=== PATIENT | female | born 1940 | race Caucasian/White ===

== ENCOUNTER 2017-05-05 11:34 | Inpatient (IN) | payer MEDICARE ==
[~2017-05-05] VITALS: Ht 144.8 cm; Wt 42.4 kg
[2017-05-05] VITALS (9 sets, daily range): BP systolic 101–124; BP diastolic 63–82; PULSE 74–90; RESP 16–20; TEMP 96.5–98.5; O2SAT 95–99
[~2017-05-05 11:34] MED LIST: ASPI81TA82 PO; CALC-137 PO; CLIN1CAP5 PO; DOCU50SY2 PO; DORZ2SOL3 EACH EYE; FISH1000 PO; LATA0.00 EACH EYE; LEVO88TA2 PO; SIMV80TA PO; [UNRECOGNIZED DRUG - OTHER] PO
[2017-05-05] MEDS ORDERED: LATA0.002 LEFT EYE (12:44)
[2017-05-05] MEDS ORDERED: DORZ2SOL15 LEFT EYE (12:44)
[2017-05-05] MEDS ORDERED: LEVO88TA2 PO (12:44)
[2017-05-05] MEDS ORDERED: REST0.05 LEFT EYE (12:44)
[2017-05-05] MEDS ORDERED: PLAV75TA29 PO (12:44)
[2017-05-05] MEDS ORDERED: PLAQ200T PO (12:44)
[2017-05-05] MEDS ORDERED: SIMV80TA PO (12:44)
[2017-05-05] MEDS ORDERED: K-TA10TA PO (12:45)
[2017-05-05] MEDS ORDERED: CIPR0.3S2 RIGHT EYE (12:45)
[2017-05-05] MEDS ORDERED: VALT500T PO (12:45)
[2017-05-05] MEDS ORDERED: DOXY1CAP74 PO (12:45)
--- NOTE | 2017-05-05 12:56 | PD ---
HPI Chief Complaint: Fall Time Seen by Provider: 12:20 Travel History International Travel<30 days: No Contact w/Intl Traveler<30days: No Traveled to known affect area: No History of Present Illness HPI This is a 76-year-old female who presents to the emergency department having had a mechanical fall yesterday, landing on her left hip and hitting her head. Her grandson helped her get up. She says she didn't lose consciousness and hasn 't vomited. She reports severe pain in her lower back and coccyx, constant, with no associated numbness or weakness. She is on Plavix and aspirin. PFSH Past Medical History Hx Anticoagulant Therapy: Yes (PLAVIX AND ASA) Arthritis: Yes (HX R/A) Cancer: No Cardiovascular Problems: No High Cholesterol: Yes Cerebrovascular Accident: Yes (TIA X1) Coronary Artery Disease: Yes Diabetes: No Diminished Hearing: No Endocrine: Yes Glaucoma: Yes Genitourinary: No Hepatitis: No Hiatal Hernia: No Hypertension: No Immune Disorder: No Kidney Stones: No Medical other: Yes (hx of PVD) Musculoskeletal: Yes Neurologic: No Psychiatric: No Reproductive: No Respiratory: No Renal Failure: No Thyroid Disease: Yes Tetanus Vaccination: Unknown Influenza Vaccination: No Menopausal: Yes Past Surgical History Abdominal Surgery: No Cardiac Surgery: No Ear Surgery: No Endocrine Surgery: Yes (THYROIDECTOMY 48 YEARS AGO) Eye Surgery: Yes (bilat eyes- cataracts ) Genitourinary Surgery: No Gynecologic Surgery: No Oral Surgery: Yes Pacemaker: No Thoracic Surgery: No Tonsillectomy: Yes Other Surgery: Yes Social History Alcohol Use: No Tobacco Use: No (QUIT 20 YRS AGO SMOKED FOR 35 YRS 1 08/03 PPD) Substance Use: No Allergies-Medications (Allergen,Severity, Reaction): Coded Allergies: Sulfa (Sulfonamide Antibiotics) (Unverified Allergy, Severe, hives, ) atorvastatin (Unverified Allergy, Severe, RASH, 05/05/17) levofloxacin (Unverified Allergy, Severe, NAUSEA, AND BLOOD PRESSURE DROPS , 05/05/17) penicillin G (Unverified Allergy, Severe, hives, 05/05/17) *MDRO Multi-Drug Resistant Organism (Verified Allergy, Unknown, 05/05/17) MRSA positive culture performed at 's office per patient's daughter Reported Meds & Prescriptions Reported Meds & Active Scripts Active Reported Ciprofloxacin Opth Drops (Ciprofloxacin HCl) 0.3% Soln 1 Drop RIGHT EYE TID while awake x 5 days. Valtrex (Valacyclovir HCl) Unknown Strength Tab Unknown Dose PO DAILY Doxycycline 40 Mg Cap 50 Mg PO BID K-Tab (Potassium Chloride) 10 Meq Tab 10 Meq PO DAILY Plavix (Clopidogrel Bisulfate) 75 Mg Tab 75 Mg PO DAILY Levothyroxine (Levothyroxine Sodium) 88 Mcg Tab 88 Mcg PO DAILY Simvastatin 80 Mg Tab 80 Mg PO DAILY Plaquenil (Hydroxychloroquine Sulfate) 200 Mg Tab 200 Mg PO BID Take with food Restasis Opth 0.05% (Cyclosporine Opth 0.05%) 0.05% Emul 1 Drop LEFT EYE BID Latanoprost Opth Drops (Latanoprost) 0.005% Drops 1 Drop LEFT EYE HS Refrigerate until opened. Dorzolamide-Timolol Opth Drops 22.3-6.8 Mg/Ml Soln 1 Drop LEFT EYE BID Review of Systems Except as stated in HPI: all other systems reviewed are Neg Physical Exam Narrative GENERAL:Well appearing, no acute distress SKIN: Ecchymoses in the left lateral thigh HEAD: Atraumatic. Normocephalic. EYES: Pupils equal and round. No injection or drainage. ENT: Moist mucous membranes NECK: Trachea midline. CARDIOVASCULAR: Regular rate and rhythm. No murmur appreciated. RESPIRATORY: Clear to auscultation. Breath sounds equal bilaterally. GASTROINTESTINAL: Abdomen soft, non-tender, nondistended. MUSCULOSKELETAL: Tender to palpation in the lower lumbar spine through the tailbone NEUROLOGICAL: Awake and alert. No obvious cranial nerve deficits. Moving all extremities. PSYCHIATRIC: Appropriate mood and affect; insight and judgment normal. Data Data Last Documented VS Vital Signs Date Time Temp Pulse Resp B/P (MAP) Pulse Ox O2 Delivery O2 Flow Rate FiO2 05/05/17 12:24 88 16 99 Room Air 05/05/17 11:50 98.5 109/67 (81) Orders Orders Ct Brain W/O Iv Contrast(Rout) (05/05/17 ) Ct Lumb Spine W/O Contrast (05/05/17 ) Hip, Uni(Ap&Lat) W Ap Pelvis (05/05/17 ) Complete Blood Count With Diff (05/05/17 14:07) Basic Metabolic Panel (Bmp) (05/05/17 14:07) Ct Abd/Pel W Iv Contrast(Rout) (05/05/17 ) Acetaminophen (Tylenol) (05/05/17 14:45) Ct Cerv Spine W/O Contrast (05/05/17 ) Chest, Single Ap (05/05/17 ) Consult Neurosurgery (05/05/17 ) Mri T Spine W/O Contrast (05/05/17 ) Admit Order (Ed Use Only) (05/05/17 15:27) Labs Laboratory Tests Test 05/05/17 14:30 White Blood Count 8.0 TH/MM3 Red Blood Count 3.49 MIL/MM3 Hemoglobin 11.1 GM/DL Hematocrit 33.2 % Mean Corpuscular Volume 95.1 FL Mean Corpuscular Hemoglobin 31.7 PG Mean Corpuscular Hemoglobin Concent 33.3 % Red Cell Distribution Width 16.2 % Platelet Count 177 TH/MM3 Mean Platelet Volume 7.4 FL Neutrophils (%) (Auto) 79.1 % Lymphocytes (%) (Auto) 8.3 % Monocytes (%) (Auto) 11.9 % Eosinophils (%) (Auto) 0.4 % Basophils (%) (Auto) 0.3 % Neutrophils # (Auto) 6.3 TH/MM3 Lymphocytes # (Auto) 0.7 TH/MM3 Monocytes # (Auto) 1.0 TH/MM3 Eosinophils # (Auto) 0.0 TH/MM3 Basophils # (Auto) 0.0 TH/MM3 CBC Comment DIFF FINAL Differential Comment Blood Urea Nitrogen 9 MG/DL Creatinine 0.58 MG/DL Random Glucose 84 MG/DL Calcium Level 8.5 MG/DL Sodium Level 129 MEQ/L Potassium Level 3.8 MEQ/L Chloride Level 95 MEQ/L Carbon Dioxide Level 24.8 MEQ/L Anion Gap 9 MEQ/L Estimat Glomerular Filtration Rate 101 ML/MIN [facility] Medical Decision Making Medical Screen Exam Complete: Yes Emergency Medical Condition: Yes Interpretation(s) Afebrile, no tachycardia, normotensive Mild anemia Mild hyponatremia Multiple superior and inferior pubic ramus fractures on the left on x-ray Lumbar spine CT demonstrates a severe compression fracture at T12 with retropulsion of bony fragments and narrowing of the canal to 7-8 mm Differential Diagnosis Intracranial hemorrhage, lumbar compression fracture, coccygeal fracture, pubic ramus fracture, proximal femur fracture Narrative Course This is a 76-year-old female who presents to the emergency department having had a mechanical fall from standing last evening. Patient is reporting severe low back pain and left hip pain. She is placed in a monitor and an IV was established. Labs are obtained which were reassuring. CT of the head is unremarkable. CT of the lumbar spine demonstrates severe compression fracture of T12 with retropulsion of bony fragments and some narrowing of the canal. She has 5 out of 5 strength in both legs and denies any loss of sensation. X- ray of the pelvis demonstrates multiple pubic ramus fractures on the left. I discussed the patient with Dr. Palm who is on-call for neurosurgery. He requested the patient be transferred to the main hospital as she may require surgical intervention. I discussed the case with Dr. Hutchinson was on-call for trauma surgery who agreed to admit the patient given her multiple injuries. Physician Communication Physician Communication Discussed with Dr. Palm and Dr. Hutchinson Diagnosis Primary Impression: Compression fracture of T12 vertebra Additional Impression: Pubic ramus fracture Qualified Codes: S32.592A - Other specified fracture of left pubis, initial encounter for closed fracture Admitting Information Admitting Physician Requests: Admit Christi Rogers MD May 05, 2017 12:56
--- NOTE | 2017-05-05 13:31 | RADRPT ---
EXAM DATE/TIME: 05/05/2017 13:00 [facility] COMPARISON: No previous studies available for comparison. INDICATIONS : Left hip pain post fall MEDICAL HISTORY : Stroke. Rheumatoid arthritis. SURGICAL HISTORY : Right hip replacement ENCOUNTER: Initial ACUITY: 2 days PAIN SCORE: 5/10 LOCATION: Left posterior hip FINDINGS: Number fractures of the left superior-inferior pubic ramus, moderately displaced involving the medial superior pubic ramus and slightly displaced involving the inferior pubic ramus. The symphysis is int act. The left hip itself is intact with mild degenerative arthritic change. There has been previous p inning of the right hip. There are prominent vascular calcifications and popcorn calcifications in th e right pelvis likely within uterine fibroid. CONCLUSION: Left pubic rami fractures Duran Araya MD on May 05, 2017 at 13:25 Board Certified Radiologist. This report was verified electronically.
--- NOTE | 2017-05-05 13:39 | RADRPT ---
EXAM DATE/TIME: 05/05/2017 13:23 [facility] COMPARISON: CT BRAIN W/O CONTRAST, December 03, 2010, 17:34. INDICATIONS : Trauma. Fell last night. RADIATION DOSE: 54.66 CTDIvol (mGy) MEDICAL HISTORY : Cerebrovascular disease. Cardiovascular disease SURGICAL HISTORY : Thyroidectomy. ENCOUNTER: Initial ACUITY: 1 day PAIN SCALE: 0/10 LOCATION: cranial TECHNIQUE: Multiple contiguous axial images were obtained of the head. Using automated exposure control and adj ustment of the mA and/or kV according to patient size, radiation dose was kept as low as reasonably a chievable to obtain optimal diagnostic quality images. DICOM format image data is available electro nically for review and comparison. FINDINGS: CEREBRUM: Moderate diffuse cerebral volume loss. The ventricles are normal for degree of atrophy. No evidence of midline shift, mass lesion, hemorrhage or acute infarction. No extra-axial fluid collections are seen. POSTERIOR FOSSA: The cerebellum and brainstem are intact. The 4th ventricle is midline. The cerebellopontine angle i s unremarkable. EXTRACRANIAL: The visualized portion of the orbits is intact. SKULL: The calvaria is intact. No evidence of skull fracture. CONCLUSION: 1. No acute intracranial abnormality. Tony Lakhani MD on May 05, 2017 at 13:37 Board Certified Radiologist. This report was verified electronically.
[2017-05-05] MEDS ORDERED: ACETAMINOPHEN 325 MG TAB PO ONE (14:45)
[2017-05-05 14:48] LABS: AUTOMATED NEUTROPHIL # 6.3 TH/MM3 (1.8-7.7); BASOPHIL % 0.3 % (0.0-2.0); EOSINOPHIL % 0.4 % (0.0-4.0); HEMATOCRIT 33.2 % (35.0-46.0); HEMO FLAGS DIFF FINAL; LYMPH % 8.3 % (9.0-44.0); LYMPHOCYTE # 0.7 TH/MM3 (1.0-4.8); MEAN CELL VOLUME 95.1 FL (80.0-100.0); MEAN CORPUSCULAR HEMOGLOBIN 31.7 PG (27.0-34.0); MEAN CORPUSCULAR HGB CONC 33.3 % (32.0-36.0); MONO % 11.9 % (0.0-8.0); NEUT % 79.1 % (16.0-70.0); PLATELET COUNT 177 TH/MM3 (150-450); RED BLOOD COUNT 3.49 MIL/MM3 (4.00-5.30); RED CELL DISTRIBUTION WIDTH 16.2 % (11.6-17.2)
--- NOTE | 2017-05-05 15:01 | RADRPT ---
EXAM DATE/TIME: 05/05/2017 13:26 [facility] COMPARISON: No previous studies available for comparison. INDICATIONS : Trauma. Fell last night. Low back pain. RADIATION DOSE: 21.43 CTDIvol (mGy) MEDICAL HISTORY : Cerebrovascular disease. Cardiovascular disease SURGICAL HISTORY : Thyroidectomy. ENCOUNTER: Initial ACUITY: 1 day PAIN SCALE: 9/10 LOCATION: Lumbar spine. TECHNIQUE: Volumetric scanning of the lumbar spine was performed. Multiplanar reconstructions in the sagittal, coronal and oblique axial planes were performed. Using automated exposure control and adjustment of the mA and/or kV according to patient size, radiation dose was kept as low as reasonably achievable t o obtain optimal diagnostic quality images. DICOM format image data is available electronically for review and comparison. FINDINGS: Severe compressive injury is present at T12. T11 also appears to be somewhat compressed however this level is not completely imaged on the scan of the lumbar spine. At T12, there is greater than 80% los s of central and ventral vertebral body height. There is moderate bony retropulsion with AP canal paco meter reduced to about 7-8 mm. The lumbar levels are intact with satisfactory alignment and no additi onal focal bony abnormalities. No other evidence of canal or foraminal compromise. CONCLUSION: Severe compressive injury with significant bony retropulsion at T12. T11 also appears to be at least mildly injured, however this level was not imaged in its entirety on the scan of the lumbar spine. Duran Araya MD on May 05, 2017 at 14:56 Board Certified Radiologist. This report was verified electronically.
[2017-05-05 15:02] LABS: POTASSIUM 3.8 MEQ/L (3.5-5.1)
[2017-05-05 15:07] LABS: BICARBONATE 24.8 MEQ/L (21.0-32.0)
[2017-05-05] MEDS ORDERED: IOHEXOL 350 MG/ML 10 ML VIAL (for RAD DIAG) IVCONTRAST ONE (15:30)
--- NOTE | 2017-05-05 15:58 | RADRPT ---
EXAM DATE/TIME: 05/05/2017 15:26 [facility] COMPARISON: PELVIS AP ONLY, November 08, 2013, 17:51. INDICATIONS : Trauma. Fall. Pelvic pain. IV CONTRAST: 85 cc Omnipaque 350 (iohexol) IV ORAL CONTRAST: No oral contrast ingested. RADIATION DOSE: 4.75 CTDIvol (mGy) MEDICAL HISTORY : Cerebrovascular disease. Cardiovascular disease SURGICAL HISTORY : Thyroidectomy. ENCOUNTER: Initial ACUITY: 1 day PAIN SCALE: 7/10 LOCATION: pelvis TECHNIQUE: Volumetric scanning of the abdomen and pelvis was performed. Using automated exposure control and ad justment of the mA and/or kV according to patient size, radiation dose was kept as low as reasonably achievable to obtain optimal diagnostic quality images. DICOM format image data is available electro nically for review and comparison. FINDINGS: LOWER LUNGS: Mild posterior atelectasis in the lung bases. LIVER: Homogeneous density without lesion. There is no dilation of the biliary tree. No calcified gallston es. SPLEEN: Normal size without lesion. PANCREAS: Within normal limits. KIDNEYS: Normal in size and shape. There is no mass, stone or hydronephrosis. ADRENAL GLANDS: Within normal limits. VASCULAR: Severe atherosclerotic change in the aorta and branch vessels with what appears to be severe multifoc al calcific stenosis including aorta, visceral branch vessels and iliacs. BOWEL/MESENTERY: The stomach, small bowel, and colon demonstrate no acute abnormality. There is no free intraperitone al air or fluid. ABDOMINAL WALL: Within normal limits. RETROPERITONEUM: There is no lymphadenopathy. BLADDER: Mildly dilated. REPRODUCTIVE: Enlarged fibroid uterus. INGUINAL: There is no lymphadenopathy or hernia. MUSCULOSKELETAL: Previous right hip pinning. Fractures in the spine involving T10, T11 and T12. Severe compression at T10 and T12. Left pelvic fractures including a mildly displaced parasymphyseal fracture involving inf erior and superior pubic rami and a mildly displaced fracture involving the inferior pubic ramus more posteriorly. CONCLUSION: Low thoracic spine compression injuries. Left pelvic fractures. Dilated urinary bladder. No solid organ injuries. Duran Araya MD on May 05, 2017 at 15:47 Board Certified Radiologist. This report was verified electronically.
[2017-05-05] MEDS ORDERED: MORPHINE SULFATE 4 MG/ML INJ IV PUSH ONE ×2 (16:00)
--- NOTE | 2017-05-05 16:12 | RADRPT ---
EXAM DATE/TIME: 05/05/2017 15:21 [facility] COMPARISON: No previous studies available for comparison. INDICATIONS : Trauma. Fall. Neck pain. RADIATION DOSE: 25.74 CTDIvol (mGy) MEDICAL HISTORY : Cardiovascular disease. Cerebrovascular disease. SURGICAL HISTORY : Thyroidectomy. ENCOUNTER: Initial ACUITY: 1 day PAIN SCALE: 0/10 LOCATION: neck TECHNIQUE: Volumetric scanning of the cervical spine was performed. Multiplanar reconstructions in the sagittal, coronal and oblique axial planes were performed. Using automated exposure control and adjustment o f the mA and/or kV according to patient size, radiation dose was kept as low as reasonably achievable to obtain optimal diagnostic quality images. DICOM format image data is available electronically f or review and comparison. FINDINGS: Vertebral body heights are maintained. Osseous structures are intact without evidence for acute bony fracture. Dens is intact. There is exaggerated cervical lordosis with very subtle, approximately 1 mm , anterolisthesis of C4 on C5. Sagittal alignment is otherwise maintained. There is a normal C1-2 rel ationship. Facets are normally aligned. There is no significant prevertebral soft tissue hematoma. Mu ltilevel degenerative spondylosis of the cervical spine most prominently at C4-6 with disc space narr owing and posterior disc osteophyte complex. No significant cervical adenopathy or gross mass. The th yroid appears unremarkable. Bulky bilateral carotid artery calcifications. Visualized lung apices are clear without pneumothorax. CONCLUSION: 1. Exaggerated cervical lordosis with very subtle anterolisthesis of C4 on C5, likely degenerative. C onsider flexion and extension views if there is significant concern regarding ligamentous instability . 2. No acute fracture. 3. Degenerative spondylosis of the cervical spine. 4. Bulky bilateral carotid artery calcified plaque. Tony Lakhani MD on May 05, 2017 at 16:05 Board Certified Radiologist. This report was verified electronically.
--- NOTE | 2017-05-05 16:30 | RADRPT ---
EXAM DATE/TIME: 05/05/2017 15:37 [facility] COMPARISON: CHEST SINGLE AP, November 08, 2013, 14:11. INDICATIONS : Chest pain. MEDICAL HISTORY : Cerebrovascular disease. Cardiovascular disease. SURGICAL HISTORY : Thyroidectomy. ENCOUNTER: Initial ACUITY: 1 day PAIN SCORE: 4/10 LOCATION: Bilateral chest FINDINGS: A single view of the chest demonstrates the lungs to be symmetrically aerated without evidence of mas s, infiltrate or effusion. The cardiomediastinal contours are unremarkable. Tortuous calcified thor acic aorta. Osseous structures are intact. CONCLUSION: 1. No acute abnormality or significant interval change. Tony Lakhani MD on May 05, 2017 at 16:28 Board Certified Radiologist. This report was verified electronically.
[2017-05-05] MEDS ORDERED: ENALAPRILAT 1.25 MG/ML VIAL IV PUSH PRN (17:00)
[2017-05-05] MEDS ORDERED: ACETAMINOPHEN 325 MG TAB PO PRN (17:00)
[2017-05-05] MEDS ORDERED: SODIUM CHLORIDE 0.9% FLUSH 10 ML FLUSH IV FLUSH PRN (17:00)
[2017-05-05] MEDS ORDERED: ONDANSETRON HCL 4 MG/2 ML VIAL IV PUSH PRN (17:00)
[2017-05-05] MEDS ORDERED: PANTOPRAZOLE SODIUM 40 MG VIAL IVP SCH (18:00)
[2017-05-05] MEDS: LATANOPROST 0.005% OPHT SOLN 2.5 ML BTL LEFT EYE SCH (21:00)
[2017-05-05] MEDS: DORZOLAMIDE/TIMOLOL OPTH SOLN 10 ML BTL LEFT EYE SCH (21:00)
--- NOTE | 2017-05-05 21:03 | PD.CONS ---
[facility] Service Neurosurgery Consult Requested By Brooklynn Mcgarry [facility] Reason for Consult Thoracic fracture Primary Care Physician Francois Griffin MD, PhD History of Present Illness Mrs. Dye is a 76 y/o female with history of HTN, hyperlipidemia, hypothyroidism, and glaucoma. She was brought to [place] ED after she had fallen at home on the evening of 05/04/17. She typically uses a walker to ambulate at home but on the evening of 05/04 she did not use one and tripped into furniture that threw off her balance and she fell onto her left hip and hit her head. Her grandson and [id number] live with her and helped her up. Since her fall she reported severe pain in her lower back and coccyx, which has been constant. She denies any associated numbness or weakness. She is on Plavix and aspirin which she reports she has been using it for 2 years for PAD in her LE. Imaging studies revealed a compression deformity of T12 vertebral body, with retropulsion of the posterior aspect of the T12 vertebral body by approximately 7 mm causing a moderate impression on the thecal sac. In addition she had left pubic rami fractures. He was transferred to [facility] for Neurosurgery and Orthopedic consultation Review of Systems Constitutional: DENIES: Fever, Chills, Dizziness, Change in appetite Eyes: DENIES: Vision loss Ears, nose, mouth, throat: DENIES: Hearing loss Respiratory: DENIES: Cough, Shortness of breath Cardiovascular: DENIES: Chest pain, Dyspnea on Exertion, Lower Extremity Edema Gastrointestinal: DENIES: Abdominal pain, Constipation, Nausea, Vomiting Genitourinary: DENIES: Urgency Musculoskeletal: COMPLAINS OF: Back pain Integumentary: DENIES: Rash Neurologic: DENIES: Headache Psychiatric: DENIES: Confusion Past Family Social History Allergies: Coded Allergies: Sulfa (Sulfonamide Antibiotics) (Unverified Allergy, Severe, hives, ) atorvastatin (Unverified Allergy, Severe, RASH, 05/05/17) levofloxacin (Unverified Allergy, Severe, NAUSEA, AND BLOOD PRESSURE DROPS , 05/05/17) penicillin G (Unverified Allergy, Severe, hives, 05/05/17) *MDRO Multi-Drug Resistant Organism (Verified Allergy, Unknown, 05/05/17) MRSA positive culture performed at 's office per patient's daughter Past Medical History HTN/Occasional hypotension Hyperlipidemia Inflammatory polyarthritis/RA Hypothyroidism Hyponatremia, Hyperkalemia Osteopenia Right femoral neck fracture in 2013 Hx of tobacco use Hx of alcohol abuse Hx of TIA Hx of glaucoma Hx of cataracts Past Surgical History Right medullary nail fixation for right subtrochanteric femoral fracture on 09/20 Bilateral cataract surgery Thyroidectomy with previous HARMON in the Tonsillectomy/Adenoidectomy Reported Medications -K-Tab 10 Meq PO DAILY -Plavix 75 Mg PO DAILY -Simvastatin 80 Mg PO DAILY -Plaquenil 200 Mg PO BID --Restasis Opth 0.05% Emul 1 Drop BOTH EYES BID --Latanoprost Opth Drops 0.005% Drops 1 Drop BOTH EYES HS --Dorzolamide-Timolol Opth Drops 22.3-6.8 Mg/Ml Soln 1 Drop BOTH EYES BID --Levothyroxine 88 Mcg PO DAILY except 1/2 pill on Wednesday ?Ciprofloxacin Opth Drops (Ciprofloxacin HCl) 0.3% Soln 1 Drop RIGHT EYE TID while awake x 5 days. ?Valtrex (Valacyclovir HCl) Unknown Strength Tab Unknown Dose PO DAILY ?Doxycycline 40 Mg Cap 50 Mg PO BID Active Ordered Medications Her family history was reviewed and found to be noncontributory to this event Family History Hx of tobacco use, smoked 1.5ppd x 35 years, quit in 1997 Hx of heavy alcohol use, none since 2008 No hx of illicit drug use Physical Exam Vital Signs Vital Signs Date Time Temp Pulse Resp B/P (MAP) Pulse Ox O2 Delivery O2 Flow Rate FiO2 05/05/17 18:15 98.0 78 20 115/82 (93) 96 05/05/17 17:50 64 16 111/81 (91) 96 05/05/17 17:14 78 16 101/63 (76) 96 Room Air 05/05/17 17:00 16 05/05/17 16:30 78 16 96 Room Air 05/05/17 16:25 82 16 124/77 (93) 97 Room Air 05/05/17 15:49 16 05/05/17 15:15 81 16 114/68 (83) 05/05/17 14:30 80 16 97 Room Air 05/05/17 14:00 76 16 116/72 (87) 05/05/17 13:15 84 16 112/70 (84) 05/05/17 12:24 88 16 99 Room Air 05/05/17 11:50 98.5 90 20 109/67 (81) 99 Physical Exam The patient is alert, awake and oriented to time, place and person. Speech is fluent. Higher cognitive functions are normal. Cranial nerve examination demonstrates the pupils to be equal, round, and reactive to light. Extra-ocular movements are intact. Facial motor and sensory function are normal and symmetrical. Gross hearing is decreased. The uvula is midline and elevates symmetrically with the soft palate. Sternocleidomastoid and trapezius muscles have normal and symmetrical strength. Other cranial nerves are intact. Neck is soft and supple. Cervical spine has a full range of motion in anterior flexion, extension, lateral bending, and rotation without pain. There is no tenderness to palpation to the spinous processes or paraspinal muscles. Muscle testing reveals normal bulk and tone overall without rigidity, spasticity , fasciculations, or atrophy. Muscle strength is 5/5 in all muscle groups of both upper extremities including deltoid, biceps, triceps, brachioradialis, wrist extension and law office receptionist. In the lower extremities, strength is 5/5 in both iliopsoas, quadriceps, hamstrings, plantar flexion, dorsiflexion, and extensor hallicus longus. Sensory examination is intact to light touch and sharp/dull discrimination in both the upper and lower extremities, symmetrically. Deep tendon reflexes are 1+ and symmetrical in the biceps, triceps, and brachioradialis, bilaterally, in the upper extremities. In the lower extremities , the patellar and Achilles are 1+, bilaterally. There is a bilateral plantar flexion response. Hoffmanns sign is negative. There is no clonus or other abnormal reflexes noted. Cerebellar examination is intact to [id number] test, rapid rhythmic alternating motion. There is no dysmetria, dysdiadochokinesia, truncal ataxia Laboratory Laboratory Tests Test 05/05/17 14:30 White Blood Count 8.0 Red Blood Count 3.49 Hemoglobin 11.1 Hematocrit 33.2 Mean Corpuscular Volume 95.1 Mean Corpuscular Hemoglobin 31.7 Mean Corpuscular Hemoglobin Concent 33.3 Red Cell Distribution Width 16.2 Platelet Count 177 Mean Platelet Volume 7.4 Neutrophils (%) (Auto) 79.1 Lymphocytes (%) (Auto) 8.3 Monocytes (%) (Auto) 11.9 Eosinophils (%) (Auto) 0.4 Basophils (%) (Auto) 0.3 Neutrophils # (Auto) 6.3 Lymphocytes # (Auto) 0.7 Monocytes # (Auto) 1.0 Eosinophils # (Auto) 0.0 Basophils # (Auto) 0.0 CBC Comment DIFF FINAL Differential Comment Blood Urea Nitrogen 9 Creatinine 0.58 Random Glucose 84 Calcium Level 8.5 Sodium Level 129 Potassium Level 3.8 Chloride Level 95 Carbon Dioxide Level 24.8 Anion Gap 9 Estimat Glomerular Filtration Rate 101 Result Diagram: 05/05/17 1430 05/05/17 1430 Imaging Last 48 hours Impressions Lumbar Spine CT 05/05/17 0000 Signed Impressions: Service Date/Time: Friday, May 05, 2017 13:26 - CONCLUSION: Severe compressive injury with significant bony retropulsion at T12. T11 also appears to be at least mildly injured, however this level was not imaged in its entirety on the scan of the lumbar spine. Duran Araya MD Hip and Pelvis X-Ray 05/05/17 0000 Signed Impressions: Service Date/Time: Friday, May 05, 2017 13:00 - CONCLUSION: Left pubic rami fractures Duran Araya MD Head CT 05/05/17 Signed Impressions: Service Date/Time: Friday, May 05, 2017 13:23 - CONCLUSION: 1. No acute intracranial abnormality. Tony Lakhani MD Chest X-Ray 05/05/17 Signed Impressions: Service Date/Time: Friday, May 05, 2017 15:37 - CONCLUSION: 1. No acute abnormality or significant interval change. Tony Lakhani MD Cervical Spine CT 05/05/17 0000 Signed Impressions: Service Date/Time: Friday, May 05, 2017 15:21 - CONCLUSION: 1. Exaggerated cervical lordosis with very subtle anterolisthesis of C4 on C5, likely degenerative. Consider flexion and extension views if there is significant concern regarding ligamentous instability. 2. No acute fracture. 3. Degenerative spondylosis of the cervical spine. 4. Bulky bilateral carotid artery calcified plaque. Tony Lakhani MD Abdomen/Pelvis CT 05/05/17 0000 Signed Impressions: Service Date/Time: Friday, May 05, 2017 15:26 - CONCLUSION: Low thoracic spine compression injuries. Left pelvic fractures. Dilated urinary bladder. No solid organ injuries. Duran Araya MD Assessment and Plan Assessment and Plan Attending Statement Neuro. neuro checks in a serial fashion. Recommend MRI T spine. WIll defer recommendations to completion of her MRI Pulmonary. Continue aggressive pulmonary toilette, nasotracheal suction, and breathing treatments with nebulizers. Pelvic fracture. Consult orthopedics PT and OT Nutrition. Tolerating Oral diet Renal. Continue to monitor closely urine output, BUN and creatinine Endocrine. Continue to Monitor serial Acu checks and SSI as needed in detail ID continue to monitor for signs of infection Continue Protonix for stress ulcer prophylaxis Continue Antwon hose and SCD's for DVT prophylaxis want to obtain a cardiac clearance and will speak with the pts [id number]-lal, Lila, about surgical options vs. custom bracing. - Pt has been see by Dr. Bailey this morning and no surgical intervention is planned regarding her pelvic fractures. - Will review the pts home meds with her [id number] this afternoon when she arrives. - Pain control PRN - Heart healthy diet - Pts Plavix and ASA are on hold for now until surgical intervention is decided. - Supportive care Hypotension. Continue home meds. Monitor vitals closely Hypothyroidism Hypothyroidism Status: Chronic Hyperlipemia. Continue statins Glaucoma. Continue home meds Inflammatory arthritis. Continue home meds Judah Palm MD May 05, 2017 21:03
--- NOTE | 2017-05-05 21:16 | RADRPT ---
EXAM DATE/TIME: 05/05/2017 19:36 [facility] COMPARISON: No previous studies available for comparison. INDICATIONS : Fracture. Back pain after fall. MEDICAL HISTORY : Arthritis. TIA. SURGICAL HISTORY : Thyroidectomy. Tonsillectomy. Cataract. Right femur jennifer. ENCOUNTER: Subsequent ACUITY: 1 day PAIN SCORE: 7/10 LOCATION: Back. TECHNIQUE: Multiplanar multisequence MRI of the thoracic spine was performed. FINDINGS: VERTEBRA: There are concave deformities at multiple levels. The most acute appearing level is th ought to be T12 where there is a biconcave appearance to the T12 vertebral body. There is significant loss of height centrally. Increased signal is seen on the T2 weighted images at this level. There is retropulsion of the posterior aspect of the T12 vertebral body secondary to the fracture deformity . This retropulsion is in the order of 7 mm. This causes a moderate impression on the thecal sac. Th ere continues to be a small amount of CSF seen around the cord at this level. There is a concave def ormity at the superior aspect of T5. Significant edema is not seen. There is severe collapse of the anterior aspect of the T10 vertebral body especially inferiorly. Bone edema is not seen at this lev el. There is mild concavity to the superior aspect of T11 without significant loss of height. There does appear to be some edema in the prevertebral soft tissues at the T12 level. ALIGNMENT: There is a prominent kyphosis of the thoracic spine. The thoracic vertebral bodies ar e grossly normally aligned in the sagittal plane. CORD: Normal position and configuration. There is an artifact seen over the upper and midthoracic spine from the T2-T3 through T7-T8 level whe re the thecal sac is suppressed on the axial images. This limits evaluation of these regions on the axial images. These images do appear well evaluated on the sagittal images. T1-T2: There is a minimal central to left paracentral disc protrusion without significant stenosi s. T2-T3: The thecal sac has a normal diameter. No evidence of disc bulge or protrusion. T3-T4: The thecal sac has a normal diameter. No evidence of disc bulge or protrusion. T4-T5: The thecal sac has a normal diameter. No evidence of disc bulge or protrusion. T5-T6: The thecal sac has a normal diameter. No evidence of disc bulge or protrusion. T6-T7: There is mild central disc protrusion. There continues to be CSF around the cord. T7-T8: There is a moderate central disc protrusion. There continues to be CSF around the cord. T8-T9: There is a mild left lateral recess focal disc protrusion. There continues to be CSF aroun d the cord. T9-T10: There is posterior displacement of the T10 vertebral body secondary to fracture deformity a t the more anterior aspect of the T10 vertebral body. The posterior aspect of the T10 vertebral body is displaced posteriorly by approximately 3 mm. This causes a mild impression on the anterior aspect of the thecal sac. There continues to be CSF around the cord. The disc space is grossly intact. T10-T11: The disc space is narrowed. A significant impression on the thecal sac is not seen. There continues to be CSF around the cord. T11-T12: Again noted is the very prominent retropulsion of the posterior aspect of the T12 vertebral body. This is retropulsed by at least 7 mm. This causes a moderate impression on the anterior aspect of the thecal sac. It appears to abut the anterior aspect of the cord. Significant deformity of th e cord is not seen. There continues to be a small amount of CSF seen around the cord. T12-L1: The thecal sac has a normal diameter. No evidence of disc bulge or protrusion. CONCLUSION: 1. Compression deformity at the T12 vertebral body that appears acute. There is retropulsion of the posterior aspect of the T12 vertebral body by approximately 7 mm causing a moderate impression on the thecal sac. 2. More chronic appearing deformities identified at T5, T10 and T11. 3. Scattered disc abnormalities as described above. The most prominent discs are seen at the T7-T8 a nd T8-T9 levels as described above. Significant stenosis from the disc abnormalities is not seen. Duran Padilla MD on May 05, 2017 at 20:32 Board Certified Radiologist. This report was verified electronically.
[2017-05-05] MEDS: SODIUM CHLOR 0.9% 1000 ML INJ 1,000 ML IV SCH (22:00)
[2017-05-05] MEDS: MORPHINE SULFATE 4 MG/ML INJ IV PUSH PRN (22:38)
[2017-05-06] VITALS (8 sets, daily range): BP systolic 95–128; BP diastolic 66–88; PULSE 23–96; RESP 16–20; TEMP 96.9–97.9; O2SAT 92–95
[2017-05-06] MEDS: LEVOTHYROXINE SODIUM 88 MCG TAB PO SCH (05:52)
[2017-05-06] MEDS: SODIUM CHLOR 0.9% 1000 ML INJ 1,000 ML IV SCH ×2 (06:35→10:18)
[2017-05-06] MEDS: POTASSIUM CHLORIDE 10 MEQ CONTROLLED RELEASE TAB PO SCH (09:00)
[2017-05-06] MEDS: PRAVASTATIN SOD 80 MG TAB PO SCH (09:00)
[2017-05-06] MEDS: DORZOLAMIDE/TIMOLOL OPTH SOLN 10 ML BTL LEFT EYE SCH ×2 (09:00→21:19)
[2017-05-06 09:38] LABS: AUTOMATED NEUTROPHIL # 4.1 TH/MM3 (1.8-7.7); BASOPHIL % 0.7 % (0.0-2.0); EOSINOPHIL # 0.1 TH/MM3 (0-0.4); EOSINOPHIL % 0.9 % (0.0-4.0); HEMATOCRIT 29.7 % (35.0-46.0); HEMO FLAGS DIFF FINAL; LYMPH % 10.3 % (9.0-44.0); LYMPHOCYTE # 0.6 TH/MM3 (1.0-4.8); MEAN CELL VOLUME 96.9 FL (80.0-100.0); MEAN CORPUSCULAR HEMOGLOBIN 33.4 PG (27.0-34.0); MEAN CORPUSCULAR HGB CONC 34.5 % (32.0-36.0); MONO % 13.4 % (0.0-8.0); NEUT % 74.7 % (16.0-70.0); PLATELET COUNT 141 TH/MM3 (150-450); RED BLOOD COUNT 3.06 MIL/MM3 (4.00-5.30); WHITE BLOOD COUNT 5.4 TH/MM3 (4.0-11.0)
[2017-05-06 09:55] LABS: ANION GAP 9 MEQ/L (5-15); AST (GOT) 37 U/L (15-37); BLOOD UREA NITROGEN 7 MG/DL (7-18); CHLORIDE 99 MEQ/L (98-107); GLOMERULAR FILTRATION RATE 112 ML/MIN (>89); POTASSIUM 3.6 MEQ/L (3.5-5.1); SODIUM (NA) 132 MEQ/L (136-145)
--- NOTE | 2017-05-06 09:56 | PD.CONS ---
HPI Service [facility] Hospitalists Consult Requested By Dr. Abreu Reason for Consult Medical management Primary Care Physician Francois Griffin MD, PhD Diagnoses: History of Present Illness Mrs. Dye is a pleasant 76 y/o WF with HTN, hyperlipidemia, hypothyroidism, and glaucoma. She was brought to the ED at [facility] on 05/05/17 after she had fallen at home on the evening of 05/04/17. She reports that she typically uses a walker to ambulate at home but on the evening of 05/04 she did not use one and ended up running into a piece of furniture that threw off her balance and she fell onto her left hip and hit her head. Her grandson and [id number] live with her and helped her up. She reported severe pain in her lower back and coccyx, which has been constant since her fall. Pt denies any associated numbness or weakness. She is on Plavix and aspirin which she reports she has been on for 2 years for PAD in her LE. Imaging studies in the ED revealed compression deformity at the T12 vertebral body that appears acute, with retropulsion of the posterior aspect of the T12 vertebral body by approximately 7 mm causing a moderate impression on the thecal sac and left pubic rami fractures. Pt was transferred to [facility] for Neurosurgery and Orthopedic surgery evaluation. Pt reports that currently her pain is fairly well controlled. She denies any headaches, dizziness, abd pain, nausea/vomiting, chest pain, palpitations, or SOB. Review of Systems Constitutional: DENIES: Fever, Chills, Dizziness, Change in appetite Eyes: DENIES: Vision loss Ears, nose, mouth, throat: DENIES: Hearing loss Respiratory: DENIES: Cough, Shortness of breath Cardiovascular: DENIES: Chest pain, Dyspnea on Exertion, Lower Extremity Edema Gastrointestinal: DENIES: Abdominal pain, Constipation, Nausea, Vomiting Genitourinary: DENIES: Urgency Musculoskeletal: COMPLAINS OF: Back pain Integumentary: DENIES: Rash Neurologic: DENIES: Headache Psychiatric: DENIES: Confusion Past Family Social History Past Medical History HTN/Occasional hypotension Hyperlipidemia Inflammatory polyarthritis/RA Hypothyroidism Hyponatremia, Hyperkalemia Osteopenia Right femoral neck fracture in 2013 PAD, multilevel disease involving the descending aortic, bilateral iliac inflow disease R>L, and SFA Hx of tobacco use Hx of alcohol abuse Hx of TIA Hx of glaucoma Hx of cataracts 2D echo (07/2009) - Mild LVH - Estimated EF 65-70% - Moderate aortic regurg - Mildly calcified mitral valve annulus Past Surgical History Right medullary nail fixation for right subtrochanteric femoral fracture on 09/20 Bilateral cataract surgery Thyroidectomy with previous HARMON in the s Tonsillectomy/Adenoidectomy Reported Medications -K-Tab 10 Meq PO DAILY -Plavix 75 Mg PO DAILY -Simvastatin 80 Mg PO DAILY -Plaquenil 200 Mg PO BID -Restasis Opth 0.05% Emul 1 Drop LEFT EYE BID -Latanoprost Opth Drops 0.005% Drops 1 Drop LEFT EYE HS -Dorzolamide-Timolol Opth Drops 22.3-6.8 Mg/Ml Soln 1 Drop LEFT EYE BID --Levothyroxine 88 Mcg PO DAILY except 1/2 pill on Wednesday -Ciprofloxacin Opth Drops (Ciprofloxacin HCl) 0.3% Soln 1 Drop RIGHT EYE TID while awake x 5 days. -Valtrex (Valacyclovir HCl) Unknown Strength Tab Unknown Dose PO DAILY -Doxycycline 40 Mg Cap 50 Mg PO BID Allergies: Coded Allergies: Sulfa (Sulfonamide Antibiotics) (Unverified Allergy, Severe, hives, ) atorvastatin (Unverified Allergy, Severe, RASH, 05/05/17) levofloxacin (Unverified Allergy, Severe, NAUSEA, AND BLOOD PRESSURE DROPS , 05/05/17) penicillin G (Unverified Allergy, Severe, hives, 05/05/17) *MDRO Multi-Drug Resistant Organism (Verified Allergy, Unknown, 05/05/17) MRSA positive culture performed at 's office per patient's daughter Family History Noncontributory Social History Hx of tobacco use, smoked 1.5ppd x 35 years, quit in 1997 Hx of heavy alcohol use, none since 2008 No hx of illicit drug use Pt is a Physical Exam Vital Signs Vital Signs Date Time Temp Pulse Resp B/P (MAP) Pulse Ox O2 Delivery O2 Flow Rate FiO2 05/06/17 08:00 97.6 78 16 119/73 (88) 93 05/06/17 04:00 97.0 70 18 95/66 (76) 95 05/06/17 00:00 97.5 74 20 115/68 (84) 95 05/05/17 20:00 96.5 74 16 107/68 (81) 95 05/05/17 18:15 98.0 78 20 115/82 (93) 96 05/05/17 17:50 64 16 111/81 (91) 96 05/05/17 17:14 78 16 101/63 (76) 96 Room Air 05/05/17 17:00 16 05/05/17 16:30 78 16 96 Room Air 05/05/17 16:25 82 16 124/77 (93) 97 Room Air 05/05/17 15:49 16 05/05/17 15:15 81 16 114/68 (83) 05/05/17 14:30 80 16 97 Room Air 05/05/17 14:00 76 16 116/72 (87) 05/05/17 13:15 84 16 112/70 (84) 05/05/17 12:24 88 16 99 Room Air 05/05/17 11:50 98.5 90 20 109/67 (81) 99 Physical Exam GENERAL: This is a well-nourished, well-developed patient, in no apparent distress. SKIN: Bilateral LE venous stasis skin changes HEENT: Atraumatic. Normocephalic. No temporal or scalp tenderness. No scleral icterus. Airway patent. NECK: Trachea midline, supple, nontender. CARDIO: Regular. RESP: CTA bilaterally. No wheezes, rales, or rhonchi. ABD: +BS, soft, non-tender, nondistended. EXT: Extremities without clubbing, cyanosis, or edema. NEURO: Awake and alert. Motor and sensory grossly within normal limits. Normal speech. Laboratory Laboratory Tests Test 05/05/17 14:30 05/06/17 08:45 White Blood Count 8.0 5.4 Red Blood Count 3.49 3.06 Hemoglobin 11.1 10.2 Hematocrit 33.2 29.7 Mean Corpuscular Volume 95.1 96.9 Mean Corpuscular Hemoglobin 31.7 33.4 Mean Corpuscular Hemoglobin Concent 33.3 34.5 Red Cell Distribution Width 16.2 17.0 Platelet Count 177 141 Mean Platelet Volume 7.4 8.0 Neutrophils (%) (Auto) 79.1 74.7 Lymphocytes (%) (Auto) 8.3 10.3 Monocytes (%) (Auto) 11.9 13.4 Eosinophils (%) (Auto) 0.4 0.9 Basophils (%) (Auto) 0.3 0.7 Neutrophils # (Auto) 6.3 4.1 Lymphocytes # (Auto) 0.7 0.6 Monocytes # (Auto) 1.0 0.7 Eosinophils # (Auto) 0.0 0.1 Basophils # (Auto) 0.0 0.0 CBC Comment DIFF FINAL DIFF FINAL Differential Comment Blood Urea Nitrogen 9 Creatinine 0.58 Random Glucose 84 Calcium Level 8.5 Sodium Level 129 Potassium Level 3.8 Chloride Level 95 Carbon Dioxide Level 24.8 Anion Gap 9 Estimat Glomerular Filtration Rate 101 Result Diagram: 05/06/17 0845 05/05/17 1430 Imaging Last Impressions Thoracic Spine MRI 05/05/17 0000 Signed Impressions: Service Date/Time: Friday, May 05, 2017 19:36 - CONCLUSION: 1. Compression deformity at the T12 vertebral body that appears acute. There is retropulsion of the posterior aspect of the T12 vertebral body by approximately 7 mm causing a moderate impression on the thecal sac. 2. More chronic appearing deformities identified at T5, T10 and T11. 3. Scattered disc abnormalities as described above. The most prominent discs are seen at the T7-T8 and T8-T9 levels as described above. Significant stenosis from the disc abnormalities is not seen. Duran Padilla MD Lumbar Spine CT 05/05/17 0000 Signed Impressions: Service Date/Time: Friday, May 05, 2017 13:26 - CONCLUSION: Severe compressive injury with significant bony retropulsion at T12. T11 also appears to be at least mildly injured, however this level was not imaged in its entirety on the scan of the lumbar spine. Duran Araya MD Hip and Pelvis X-Ray 05/05/17 0000 Signed Impressions: Service Date/Time: Friday, May 05, 2017 13:00 - CONCLUSION: Left pubic rami fractures Duran Araya MD Head CT 05/05/17 0000 Signed Impressions: Service Date/Time: Friday, May 05, 2017 13:23 - CONCLUSION: 1. No acute intracranial abnormality. Tony Lakhani MD Chest X-Ray 05/05/17 0000 Signed Impressions: Service Date/Time: Friday, May 05, 2017 15:37 - CONCLUSION: 1. No acute abnormality or significant interval change. Tony Lakhani MD Cervical Spine CT 05/05/17 0000 Signed Impressions: Service Date/Time: Friday, May 05, 2017 15:21 - CONCLUSION: 1. Exaggerated cervical lordosis with very subtle anterolisthesis of C4 on C5, likely degenerative. Consider flexion and extension views if there is significant concern regarding ligamentous instability. 2. No acute fracture. 3. Degenerative spondylosis of the cervical spine. 4. Bulky bilateral carotid artery calcified plaque. Tony Lakhani MD Abdomen/Pelvis CT 05/05/17 0000 Signed Impressions: Service Date/Time: Friday, May 05, 2017 15:26 - CONCLUSION: Low thoracic spine compression injuries. Left pelvic fractures. Dilated urinary bladder. No solid organ injuries. Duran Araya MD Assessment and Plan Problem List: (1) Compression fracture of T12 vertebra ICD Codes: S22.080A - Wedge compression fracture of T11-T12 vertebra, initial encounter for closed fracture Status: Acute Plan: - Pt is a 76 y/o WF with inflammatory polyarthropathy/RA, hyperlipidemia, hypothyroidism, and glaucoma. - Pt was brought to the ED at [facility] on 05/05/17 after she had a mechanical fall at home on the evening of 05/04/17 after she bumped into a piece of furniture that threw off her balance and she fell onto her left hip and hit her head. She reported severe pain in her lower back and coccyx, which has been constant since her fall. - Imaging studies in the ED revealed compression deformity at the T12 vertebral body that appears acute, with retropulsion of the posterior aspect of the T12 vertebral body by approximately 7 mm causing a moderate impression on the thecal sac and left pubic rami fractures. - Pt was transferred to [facility] for Neurosurgery and Orthopedic surgery evaluation. - Dr. Arpita lynn, spoke with his PA who reports that they want to obtain a cardiac clearance and will speak with the pts cgapfofm-bu-olt, Lila, about surgical options vs. custom bracing. - Pt has been see by Dr. Bailey this morning and no surgical intervention is planned regarding her pelvic fractures. - Will review the pts home meds with her [id number]-inu this afternoon when she arrives. - Pain control PRN - Heart healthy diet - Pts Plavix and ASA are on hold for now until surgical intervention is decided. - Supportive care - DVT prophylaxis with Heparin (2) Pubic ramus fracture ICD Codes: S32.599A - Other specified fracture of unspecified pubis, initial encounter for closed fracture Status: Acute Plan: - See above. (3) Hypotension ICD Codes: I95.9 - Hypotension Status: Acute Plan: - Pt with low/normal BP currently, narcotics likely contributing. - Monitor vitals closely - Pt has IVF ordered (4) Hypothyroidism ICD Codes: E03.9 - Hypothyroidism Status: Chronic Plan: - Home meds continued (5) Hyperlipemia ICD Codes: E78.5 - Hyperlipemia Status: Chronic Plan: - Home meds continued (6) Glaucoma ICD Codes: H40.9 - Glaucoma Status: Chronic Plan: - Home meds continued (7) Inflammatory arthritis ICD Codes: M06.4 - Inflammatory arthritis Status: Chronic Assessment and Plan Patient examined. Assessment and plan formulated with Hailey Davidson PA-C. I agree with the above. sp fall. T12 fx. pelvic fx's. seen by trauma/ortho/nsg...who wants cardiology to clear pt for possible surgery on t12 vs brace. Problem Qualifiers (1) Pubic ramus fracture: Qualified Codes: S32.592A - Other specified fracture of left pubis, initial encounter for closed fracture Hailey Davidson May 06, 2017 09:56 Desmond Carter MD May 06, 2017 12:23
[2017-05-06 09:59] LABS: ALKALINE PHOSPHATASE 72 U/L (45-117); ALT (GPT) 33 U/L (10-53); TOTAL BILIRUBIN ADULT 1.1 MG/DL (0.2-1.0)
[2017-05-06] MEDS: METHOCARBAMOL 500 MG TAB PO SCH ×3 (10:45→21:18)
[2017-05-06] MEDS: MORPHINE SULFATE 4 MG/ML INJ IV PUSH PRN ×2 (11:48→21:17)
[2017-05-06] MEDS: POLYETHYLENE GLYCOL 17 GM PKG PO SCH (12:00)
[2017-05-06] MEDS: DOCUSATE SODIUM 100 MG CAP PO SCH ×2 (12:00→21:18)
[2017-05-06] MEDS ORDERED: LACTULOSE SYRUP 20 GM/30 ML CUP PO PRN (12:00)
--- NOTE | 2017-05-06 12:01 | HHI.PR ---
Subjective Subjective Notes Complains of back pain Requesting I call her daughter in law to give her an update Objective Vitals/I&O Vital Signs Date Time Temp Pulse Resp B/P (MAP) Pulse Ox O2 Delivery O2 Flow Rate FiO2 05/06/17 08:00 97.6 78 16 119/73 (88) 93 05/05/17 17:14 Room Air Labs Laboratory Tests Test 05/05/17 14:30 05/06/17 08:45 White Blood Count 8.0 5.4 Red Blood Count 3.49 3.06 Hemoglobin 11.1 10.2 Hematocrit 33.2 29.7 Mean Corpuscular Volume 95.1 96.9 Mean Corpuscular Hemoglobin 31.7 33.4 Mean Corpuscular Hemoglobin Concent 33.3 34.5 Red Cell Distribution Width 16.2 17.0 Platelet Count 177 141 Mean Platelet Volume 7.4 8.0 Neutrophils (%) (Auto) 79.1 74.7 Lymphocytes (%) (Auto) 8.3 10.3 Monocytes (%) (Auto) 11.9 13.4 Eosinophils (%) (Auto) 0.4 0.9 Basophils (%) (Auto) 0.3 0.7 Neutrophils # (Auto) 6.3 4.1 Lymphocytes # (Auto) 0.7 0.6 Monocytes # (Auto) 1.0 0.7 Eosinophils # (Auto) 0.0 0.1 Basophils # (Auto) 0.0 0.0 CBC Comment DIFF FINAL DIFF FINAL Differential Comment Blood Urea Nitrogen 9 7 Creatinine 0.58 0.53 Random Glucose 84 70 Calcium Level 8.5 7.9 Sodium Level 129 132 Potassium Level 3.8 3.6 Chloride Level 95 99 Carbon Dioxide Level 24.8 24.0 Anion Gap 9 9 Estimat Glomerular Filtration Rate 101 112 Total Protein 5.2 Albumin 3.1 Alkaline Phosphatase 72 Aspartate Amino Transf (AST/SGOT) 37 Alanine Aminotransferase (ALT/SGPT) 33 Total Bilirubin 1.1 Radiology Last Impressions Thoracic Spine MRI 05/05/17 0000 Signed Impressions: Service Date/Time: Friday, May 05, 2017 19:36 - CONCLUSION: 1. Compression deformity at the T12 vertebral body that appears acute. There is retropulsion of the posterior aspect of the T12 vertebral body by approximately 7 mm causing a moderate impression on the thecal sac. 2. More chronic appearing deformities identified at T5, T10 and T11. 3. Scattered disc abnormalities as described above. The most prominent discs are seen at the T7-T8 and T8-T9 levels as described above. Significant stenosis from the disc abnormalities is not seen. Duran Padilla MD Lumbar Spine CT 05/05/17 Signed Impressions: Service Date/Time: Friday, May 05, 2017 13:26 - CONCLUSION: Severe compressive injury with significant bony retropulsion at T12. T11 also appears to be at least mildly injured, however this level was not imaged in its entirety on the scan of the lumbar spine. Duran Araya MD Hip and Pelvis X-Ray 05/05/17 Signed Impressions: Service Date/Time: Friday, May 05, 2017 13:00 - CONCLUSION: Left pubic rami fractures Duran Araya MD Head CT 05/05/17 Signed Impressions: Service Date/Time: Friday, May 05, 2017 13:23 - CONCLUSION: 1. No acute intracranial abnormality. Tony Lakhani MD Chest X-Ray 05/05/17 Signed Impressions: Service Date/Time: Friday, May 05, 2017 15:37 - CONCLUSION: 1. No acute abnormality or significant interval change. Tony Lakhani MD Cervical Spine CT 05/05/17 Signed Impressions: Service Date/Time: Friday, May 05, 2017 15:21 - CONCLUSION: 1. Exaggerated cervical lordosis with very subtle anterolisthesis of C4 on C5, likely degenerative. Consider flexion and extension views if there is significant concern regarding ligamentous instability. 2. No acute fracture. 3. Degenerative spondylosis of the cervical spine. 4. Bulky bilateral carotid artery calcified plaque. Tony Lakhani MD Abdomen/Pelvis CT 05/05/17 Signed Impressions: Service Date/Time: Friday, May 05, 2017 15:26 - CONCLUSION: Low thoracic spine compression injuries. Left pelvic fractures. Dilated urinary bladder. No solid organ injuries. Duran Araya MD Narrative Exam GENERAL: 76-year-old well-nourished, well developed female lying in bed. SKIN: Warm and dry. HEAD: Normocephalic. ENT: No nasal bleeding or discharge. Mucous membranes pink and moist. NECK: Trachea midline. No JVD. CARDIOVASCULAR: Regular rate and rhythm. RESPIRATORY: No accessory muscle use. Lungs clear to auscultation. Breath sounds equal bilaterally. GASTROINTESTINAL: Abdomen soft, non-tender, nondistended. + BS. MUSCULOSKELETAL: Extremities without cyanosis, or edema. No obvious deformities. NEUROLOGICAL: Awake and alert. Normal speech. A/P Assessment and Plan [id number]'KMAQ: Mechanical fall from the standing position landing on her hip and striking her head. No LOC. Able to ambulate after the fall but continued to have pain so came to the ED. Takes Plavix and ASA at home. INJURIES: T12 compression fx LEFT superior and inferior pubic rami fxs PMHx: PVD, HLD, glaucoma, hypothyroidism, CAD, CVA, RA Diet: Regular Pulm: IS Pain: [place], Morphine IV, Robaxin Activity: BR. PT ordered. GI: IV Protonix Bowel: Miralax, Colace, PRN Lactulose. LBM 0 DVT: SCDs, Heparin 5000 SQ BID T12 compression fx Neurosurgery consulted Nonsurgical management TLSO brace PT ordered SQ Heparin LEFT superior and inferior pubic rami fxs Orthopedics consulted Nonoperative management Awaiting weightbearing status PT ordered Hospitalist consulted to assist with medical management. Plan of care discussed with patient and [id number]. Case management consulted for discharge planning. Remarks seen and examined with JAILOR-agree with assessment and plan NS plan noted ortho pending pain control DVT prophylaxis Nelson Jaeger May 06, 2017 12:01 Christine García MD May 06, 2017 16:10
--- NOTE | 2017-05-06 12:11 | PD.CONS ---
HPI Service [facility] Consult Requested By Medical Admitting service Reason for Consult Fracture of the left hemipelvis Primary Care Physician Francois Griffin MD, PhD Admission Diagnosis compression fracture, pelvic fracture Diagnoses: (1) Compression fracture of T12 vertebra (2) Pubic ramus fracture (3) Hypotension (4) Hypothyroidism (5) Hyperlipemia (6) Glaucoma (7) Inflammatory arthritis Past Family Social History Allergies: Coded Allergies: Sulfa (Sulfonamide Antibiotics) (Unverified Allergy, Severe, hives, ) atorvastatin (Unverified Allergy, Severe, RASH, 05/05/17) levofloxacin (Unverified Allergy, Severe, NAUSEA, AND BLOOD PRESSURE DROPS , 05/05/17) penicillin G (Unverified Allergy, Severe, hives, 05/05/17) *MDRO Multi-Drug Resistant Organism (Verified Allergy, Unknown, 05/05/17) MRSA positive culture performed at 's office per patient's daughter Active Ordered Medications Current Medications Medications (Trade) Dose Ordered Sig/Ann Route Start Time Stop Time Status Last Admin (NS Flush) 2 ml UNSCH PRN IV FLUSH 05/05/17 17:00 (Morphine Inj) 2 mg Q4HR PRN IV PUSH 05/05/17 17:00 05/06/17 11:48 ([place] 5-325 Mg) 1 tab Q4H PRN PO 05/05/17 17:00 (Tylenol) 650 mg Q6H PRN PO 05/05/17 17:00 (Vasotec Inj) 1.25 mg Q8H PRN IV PUSH 05/05/17 17:00 (Zofran Inj) 4 mg Q6H PRN IV PUSH 05/05/17 17:00 (Cosopt 2-0.5% Opth Soln) 1 drop BID LEFT EYE 05/05/17 21:00 (Xalatan 0.005% Opth Soln) 1 drop HS LEFT EYE 05/05/17 21:00 (Synthroid) 88 mcg DAILY@0600 PO 05/06/17 06:00 05/06/17 05:52 (KCl) 10 meq DAILY PO 05/06/17 09:00 (Pravachol) 80 mg DAILY PO 05/06/17 09:00 (Robaxin) 500 mg Q8HR PO 05/06/17 10:45 (Heparin Inj) 5,000 units Q12HR SQ 05/06/17 21:00 (Pepcid) 20 mg BID PO 05/07/17 09:00 (Miralax) 17 gm DAILY PO 05/06/17 12:00 (Lactulose Liq) 30 ml DAILY PRN PO 05/06/17 12:00 (Colace) 100 mg BID PO 05/06/17 12:00 (Ciloxan 0.3% Opth Soln) 1 drop TID RIGHT EYE 05/06/17 13:00 UNV Non-Formulary Medication 1 drop BID LEFT EYE 05/06/17 21:00 UNV Non-Formulary Medication 50 mg BID PO 05/06/17 21:00 UNV Reported Meds & Active Scripts Active Reported Ciprofloxacin Opth Drops (Ciprofloxacin HCl) 0.3% Soln 1 Drop RIGHT EYE TID while awake x 5 days. Valtrex (Valacyclovir HCl) Unknown Strength Tab Unknown Dose PO DAILY Doxycycline 40 Mg Cap 50 Mg PO BID K-Tab (Potassium Chloride) 10 Meq Tab 10 Meq PO DAILY Plavix (Clopidogrel Bisulfate) 75 Mg Tab 75 Mg PO DAILY Levothyroxine (Levothyroxine Sodium) 88 Mcg Tab 88 Mcg PO DAILY Simvastatin 80 Mg Tab 80 Mg PO DAILY Plaquenil (Hydroxychloroquine Sulfate) 200 Mg Tab 200 Mg PO BID Take with food Restasis Opth 0.05% (Cyclosporine Opth 0.05%) 0.05% Emul 1 Drop LEFT EYE BID Latanoprost Opth Drops (Latanoprost) 0.005% Drops 1 Drop LEFT EYE HS Refrigerate until opened. Dorzolamide-Timolol Opth Drops 22.3-6.8 Mg/Ml Soln 1 Drop LEFT EYE BID Physical Exam Vital Signs Vital Signs Date Time Temp Pulse Resp B/P (MAP) Pulse Ox O2 Delivery O2 Flow Rate FiO2 05/06/17 08:00 97.6 78 16 119/73 (88) 93 05/06/17 04:00 97.0 70 18 95/66 (76) 95 05/06/17 00:00 97.5 74 20 115/68 (84) 95 05/05/17 20:00 96.5 74 16 107/68 (81) 95 05/05/17 18:15 98.0 78 20 115/82 (93) 96 05/05/17 17:50 64 16 111/81 (91) 96 05/05/17 17:14 78 16 101/63 (76) 96 Room Air 05/05/17 17:00 16 05/05/17 16:30 78 16 96 Room Air 05/05/17 16:25 82 16 124/77 (93) 97 Room Air 05/05/17 15:49 16 05/05/17 15:15 81 16 114/68 (83) 05/05/17 14:30 80 16 97 Room Air 05/05/17 14:00 76 16 116/72 (87) 05/05/17 13:15 84 16 112/70 (84) 05/05/17 12:24 88 16 99 Room Air Physical Exam The patient is lying comfortably in bed. The patient is on isolation. Nurse is at the bedside. Thoracolumbar spine tenderness to palpation just above the torcula lumbar spine. Moderate spasm. Pelvis is level. Left hemipelvis is tender to palpation along the anterior ramus. Left hip motion is almost normal. There is moderate ecchymosis of both legs the patient states is long-standing. No tenderness about either knee or ankle. Straight leg raise is negative. Sensation is almost normal. Motor examination is normal. HEENT: Normocephalic atraumatic pupils equal round reactive. NECK: Supple. No abnormal masses. Full range of motion. CHEST: Clear to auscultation with no rales or rhonchi's or wheezes. HEART: Regular rate and rhythm. No murmurs. ABDOMEN: Soft, nontender, no masses. Normal active bowel sounds. GENITOURINARY: Deferred Laboratory Laboratory Tests Test 05/05/17 14:30 05/06/17 08:45 White Blood Count 8.0 5.4 Red Blood Count 3.49 3.06 Hemoglobin 11.1 10.2 Hematocrit 33.2 29.7 Mean Corpuscular Volume 95.1 96.9 Mean Corpuscular Hemoglobin 31.7 33.4 Mean Corpuscular Hemoglobin Concent 33.3 34.5 Red Cell Distribution Width 16.2 17.0 Platelet Count 177 141 Mean Platelet Volume 7.4 8.0 Neutrophils (%) (Auto) 79.1 74.7 Lymphocytes (%) (Auto) 8.3 10.3 Monocytes (%) (Auto) 11.9 13.4 Eosinophils (%) (Auto) 0.4 0.9 Basophils (%) (Auto) 0.3 0.7 Neutrophils # (Auto) 6.3 4.1 Lymphocytes # (Auto) 0.7 0.6 Monocytes # (Auto) 1.0 0.7 Eosinophils # (Auto) 0.0 0.1 Basophils # (Auto) 0.0 0.0 CBC Comment DIFF FINAL DIFF FINAL Differential Comment Blood Urea Nitrogen 9 7 Creatinine 0.58 0.53 Random Glucose 84 70 Calcium Level 8.5 7.9 Sodium Level 129 132 Potassium Level 3.8 3.6 Chloride Level 95 99 Carbon Dioxide Level 24.8 24.0 Anion Gap 9 9 Estimat Glomerular Filtration Rate 101 112 Total Protein 5.2 Albumin 3.1 Alkaline Phosphatase 72 Aspartate Amino Transf (AST/SGOT) 37 Alanine Aminotransferase (ALT/SGPT) 33 Total Bilirubin 1.1 Result Diagram: 05/06/1745 05/06/17844 Imaging X-ray of the pelvis and left hip is suspicious for a left anterior and ischial ramus fracture. Some irregularities of the left femoral neck were seen which is likely from overlying soft tissues. No significant arthritis of either hip is seen. This was reviewed as well as the radiologist's interpretation. CT of the abdomen and pelvis to: I reviewed the radiologist's report. My interpretation includes no evidence of fracture of the left femoral neck. There is evidence of a minimally displaced left anterior initial ramus fracture. No other fractures are seen. X-ray thoracic and lumbar spine with MRI scan thoracal lumbar spine shows evidence of a significant kyphotic deformity at the thoracolumbar junction and evidence of what appears to be a recent burst fracture variant at T12 with mild retropulsion. Osteopenia is suspect. Assessment & Plan Assessment and Plan Fracture left initial and anterior ramus. Burst fracture variant thoracolumbar spine, T12. PLAN: Spine management and evaluation per Dr. Smith. Limited weightbearing left leg. The patient allowed to be bed to chair when acceptable with neurosurgery for moving from the bed. Nonsurgical treatment of this patient's pelvis condition. We will follow her in the hospital. She'll be discharged at some point and then followed in the office in approximately 3-4 weeks Jaswinder Cruz MD May 06, 2017 12:11
[2017-05-06] MEDS ORDERED: QUEtiapine FUMARATE 25 MG TAB PO ONE (12:30)
[2017-05-06] MEDS ORDERED: CIPROFLOXACIN 0.3% OPTH SOLN 2.5 ML BTL RIGHT EYE SCH (13:00)
--- NOTE | 2017-05-06 13:44 | MB ---
cc: MARILU CONNER MD DATE OF CONSULTATION 05/06/2017 REASON FOR CONSULTATION This is a 76-year-old woman who was admitted to hospital after suffering a fall at home. She apparently normally uses a walker but was ambulating without one and had a fall. At that time, she reported severe pain in her lower back coccyx. She has a compression deformity of T12 with some retropulsion of the vertebral body causing moderate impression on the thecal sac. She also has a left pubic ramus fracture. She is seen by Dr. Cruz who has not planned surgery for pubic fractures, however, there is a consideration for surgery for her T12 fracture. I have been asked to see her in preop consultation. She has no prior history of heart disease. She was placed on Plavix two years ago for presumed peripheral vascular disease involving her lower extremities, as well as carotid artery disease. No prior history of TIA year stroke has been present. She actually has no symptoms of claudication. Review of her record at [facility] reveals A rather distant carotid Doppler exam in 2008 with an MARSHALL in 2014 which revealed only very mild disease in the left lower extremity. No palpitations, shortness of breath, lightheadedness or dizziness has been present. PAST MEDICAL HISTORY Past medical history is otherwise significant for: 1. Hypertension 2. Hyperlipidemia 3. Rheumatoid arthritis. SOCIAL HISTORY She is a former smoker having stopped in 1997. She has not used alcohol since 2008 and does not use recreational drugs. ALLERGIES SULFA, ATORVASTATIN, PENICILLIN AND HAS ALSO HAD AN ADVERSE REACTION TO LEVOFLOXACIN. PHYSICAL EXAM She is awake and alert. She is in no acute distress and actually feels somewhat better. VITAL SIGNS: Blood pressure is 110/70, pulse is 70 and regular. NECK: There is no neck vein distension. Bilateral carotid bruits are present with left greater than right. LUNGS: Clear. CARDIOVASCULAR: Exam reveals a regular rate and rhythm. There is no murmur and no gallop is noted. ABDOMEN: Soft. There is no tenderness. EXTREMITIES: Reveal no edema. There are bilateral ecchymoses in both lower extremities. Both posterior tibial pulses are present. Electrocardiogram is pending. LABORATORY DATA Laboratory examination shows a mildly depressed serum sodium and mild anemia at 10 over 29. Platelets are initially normal at 177 with follow up of 141. ASSESSMENT The patient is stable from a cardiovascular standpoint. I have ordered carotid Dopplers for further evaluation. She would appear to be an acceptable candidate for surgery if procedure is planned pending. We will await with interest the outcome of her carotid Dopplers. I note that she has been on Plavix and this was just discontinued on admission on 05/05 and surgery may want to be delayed for another three to four days to let her antiplatelet effect subside. MD BRISEYDA Galloway/NIKKIE /1:22 PM /1:28 PM
--- NOTE | 2017-05-06 16:15 | RADRPT ---
EXAM DATE/TIME: 05/06/2017 14:06 [place] COMPARISON: No previous studies available for comparison. INDICATIONS : Bruit. MEDICAL HISTORY : Hypercholesterolemia. CVA. CAD. SURGICAL HISTORY : Tonsillectomy. ENCOUNTER: Initial ACUITY: 1 day PAIN SCORE: 0/10 LOCATION: Bilateral neck PEAK SYSTOLIC VELOCITIES (cm/sec): ICA/CCA RATIO: Right: 1.42 Left: 3.0 ICA: Right: 182 Left: 303 CCA: Right: 128 Left: 100 ECA: Right: 125 Left: 81 VERTEBRAL: Right: BIPHASIC retrograde Left: BIPHASIC retrograde Elevated flow velocities and ICA/CCA ratios have been found to correlate with increased degrees of vessel stenosis, calculated as percentage of diameter relative to a normal segment of distal ICA/CCA FINDINGS: RIGHT CAROTID: Moderate to severe plaque is present in the carotid bulb with areas of posterior shadowing. There is mild turbulence and tortuosity of the vessel. LEFT CAROTID: Moderate to severe plaque is present in the carotid bulb with areas of posterior shadowing. There is mild turbulence and tortuosity of the vessel. VERTEBRAL ARTERIES: Antegrade flow is seen in both vertebral arteries. MISCELLANEOUS: None. CONCLUSION: 1. High grade greater than 70% stenosis in the left internal carotid artery by velocity criteria. 2. Less than 50% diameter stenosis in the right internal carotid artery. 3. Abnormal biphasic flow in the vertebral arteries. Blake Cadena MD on May 06, 2017 at 15:49 Board Certified Radiologist. This report was verified electronically.
[2017-05-06] MEDS: OPTH RIGHT EYE SCH (17:58)
[2017-05-06] MEDS: CIPROFLOXACIN 0.3% RIGHT EYE SCH (17:58)
[2017-05-06] MEDS ORDERED: Cyclosporine Opth 0.05% (Restasis Opth 0.05%) 1 DROP LEFT EYE SCH (21:00)
[2017-05-06] MEDS: DOXYCYCLINE HYCLATE 100 MG TAB PO SCH (21:18)
[2017-05-06] MEDS: HEPARIN SODIUM - SQ 10,000 UNITS/ML VIAL SQ SCH (21:18)
[2017-05-06] MEDS: LATANOPROST 0.005% OPHT SOLN 2.5 ML BTL LEFT EYE SCH (21:19)
[2017-05-07] VITALS: BP 98/71; PULSE 75; RESP 18; TEMP 96.9; O2SAT 90
[2017-05-07] MEDS: METHOCARBAMOL 500 MG TAB PO SCH ×3 (06:09→21:23)
[2017-05-07] MEDS: LEVOTHYROXINE SODIUM 88 MCG TAB PO SCH (06:09)
--- NOTE | 2017-05-07 07:41 | PD.CARD.PN ---
Subjective Subjective Remarks Patient has significant stenosis of left ICA. She is asymptomatic and won't impact surgical risk but should consider elective endarterectomy once neurosurgical status stable Objective Vital Signs / I&O Vital Signs Date Time Temp Pulse Resp B/P (MAP) Pulse Ox O2 Delivery O2 Flow Rate FiO2 05/07/17 00:00 96.9 75 18 98/71 (80) 90 05/06/17 23:00 23 05/06/17 20:00 96.9 96 20 122/88 (99) 93 05/06/17 16:00 97.9 86 17 128/86 (100) 92 05/06/17 13:32 93 05/06/17 12:00 97.3 78 16 108/69 (82) 93 05/06/17 08:00 97.6 78 16 119/73 (88) 93 I/O 05/06/17 05/06/17 05/06/17 05/07/17 05/07/17 05/07/17 07:00 15:00 23:00 07:00 15:00 23:00 Intake Total 528 ml 720 ml 0 ml Output Total 1000 ml Balance 528 ml -280 ml 0 ml Intake Oral 0 ml 720 ml IV Total 528 ml 0 ml Output Urine Total 1000 ml # Bowel Movements 0 Laboratory Laboratory Tests Test 05/06/17 08:45 White Blood Count 5.4 TH/MM3 Red Blood Count 3.06 MIL/MM3 Hemoglobin 10.2 GM/DL Hematocrit 29.7 % Mean Corpuscular Volume 96.9 FL Mean Corpuscular Hemoglobin 33.4 PG Mean Corpuscular Hemoglobin Concent 34.5 % Red Cell Distribution Width 17.0 % Platelet Count 141 TH/MM3 Mean Platelet Volume 8.0 FL Neutrophils (%) (Auto) 74.7 % Lymphocytes (%) (Auto) 10.3 % Monocytes (%) (Auto) 13.4 % Eosinophils (%) (Auto) 0.9 % Basophils (%) (Auto) 0.7 % Neutrophils # (Auto) 4.1 TH/MM3 Lymphocytes # (Auto) 0.6 TH/MM3 Monocytes # (Auto) 0.7 TH/MM3 Eosinophils # (Auto) 0.1 TH/MM3 Basophils # (Auto) 0.0 TH/MM3 CBC Comment DIFF FINAL Differential Comment Blood Urea Nitrogen 7 MG/DL Creatinine 0.53 MG/DL Random Glucose 70 MG/DL Total Protein 5.2 GM/DL Albumin 3.1 GM/DL Calcium Level 7.9 MG/DL Alkaline Phosphatase 72 U/L Aspartate Amino Transf (AST/SGOT) 37 U/L Alanine Aminotransferase (ALT/SGPT) 33 U/L Total Bilirubin 1.1 MG/DL Sodium Level 132 MEQ/L Potassium Level 3.6 MEQ/L Chloride Level 99 MEQ/L Carbon Dioxide Level 24.0 MEQ/L Anion Gap 9 MEQ/L Estimat Glomerular Filtration Rate 112 ML/MIN Diego Loredo MD May 07, 2017 07:41
[2017-05-07 08:16] VITALS: BP 121/82; PULSE 79; RESP 14; TEMP 97
[2017-05-07] MEDS: POLYETHYLENE GLYCOL 17 GM PKG PO SCH (08:47)
--- NOTE | 2017-05-07 08:47 | HHI.HP ---
History of Present Illness Primary Care Physician Francois Griffin MD, PhD Admission Diagnosis compression fracture, pelvic fracture Diagnoses: History of Present Illness 76 y.o female,mechanical fall,transfer from outside-work up shows T12 burst fx with retropulsion,pelvic fx-c/o back pain,neuro intact,HD normal,moving all 4extremities Review of Systems Constitutional: DENIES: Diaphoretic episodes, Fatigue, Fever, Weight gain, Weight loss, Chills, Dizziness, Change in appetite, Night Sweats Endocrine: DENIES: Abnorml menstrual pattern, Heat/cold intolerance, Polydipsia , Polyuria, Polyphagia Eyes: DENIES: Blurred vision, Diplopia, Eye inflammation, Eye pain, Vision loss , Photosensitivity, Double Vision Ears, nose, mouth, throat: DENIES: Tinnitus, Hearing loss, Vertigo, Nasal discharge, Oral lesions, Throat pain, Hoarseness, Ear Pain, Running Nose, Epistaxis, Sinus Pain, Toothache, Odynophagia Respiratory: DENIES: Apneas, Cough, Snoring, Wheezing, Hemoptysis, Sputum production, Shortness of breath Cardiovascular: DENIES: Chest pain, Palpitations, Syncope, Dyspnea on Exertion , PND, Lower Extremity Edema, Orthopnea, Claudication Gastrointestinal: DENIES: Abdominal pain, Black stools, Bloody stools, Constipation, Diarrhea, Nausea, Vomiting, Difficulty Swallowing, Anorexia Genitourinary: DENIES: Abnormal vaginal bleeding, Dysmenorrhea, Dyspareunia, Sexual dysfunction, Urinary frequency, Urinary incontinence, Urgency, Hematuria , Dysuria, Nocturia, Vaginal discharge Musculoskeletal: DENIES: Joint pain, Muscle aches, Stiffness, Joint Swelling, Back pain, Neck pain Integumentary: DENIES: Abnormal pigmentation, Pruritus, Rash, Nail changes, Breast masses, Breast skin changes, Nipple discharge Hematologic/lymphatic: DENIES: Bruising, Lymphadenopathy Neurologic: DENIES: Abnormal gait, Headache, Localized weakness, Paresthesias, Seizures, Speech Problems, Tremor, Poor Balance Psychiatric: DENIES: Anxiety, Confusion, Mood changes, Depression, Hallucinations, Agitation, Suicidal Ideation, Homicidal Ideation, Delusions Past Family Social History Allergies: Coded Allergies: Sulfa (Sulfonamide Antibiotics) (Unverified Allergy, Severe, hives, ) atorvastatin (Unverified Allergy, Severe, RASH, 05/05/17) levofloxacin (Unverified Allergy, Severe, NAUSEA, AND BLOOD PRESSURE DROPS , 05/05/17) penicillin G (Unverified Allergy, Severe, hives, 05/05/17) *MDRO Multi-Drug Resistant Organism (Verified Allergy, Unknown, 05/05/17) MRSA positive culture performed at 's office per patient's daughter Past Medical History CVA Past Surgical History none Reported Medications ASA,plavix Family History none Social History lives with family,no etoh Physical Exam Vital Signs Vital Signs Date Time Temp Pulse Resp B/P (MAP) Pulse Ox O2 Delivery O2 Flow Rate FiO2 05/07/17 08:16 97.0 79 14 121/82 (95) 05/07/17 00:00 96.9 75 18 98/71 (80) 90 05/06/17 23:00 23 05/06/17 20:00 96.9 96 20 122/88 (99) 93 05/06/17 16:00 97.9 86 17 128/86 (100) 92 05/06/17 13:32 93 05/06/17 12:00 97.3 78 16 108/69 (82) 93 Physical Exam GENERAL: This is a well-nourished, well-developed patient, in no apparent distress. SKIN: No rashes, ecchymoses or lesions. Cool and dry. HEAD: Atraumatic. Normocephalic. No temporal or scalp tenderness. EYES: Pupils equal round and reactive. Extraocular motions intact. ENT: Nose without bleeding, purulent drainage or septal hematoma. Airway patent. NECK: Trachea midline. No JVD or lymphadenopathy. Supple, nontender, no meningeal signs. CARDIOVASCULAR: Regular rate and rhythm without murmurs, gallops, or rubs. RESPIRATORY: Clear to auscultation. Breath sounds equal bilaterally. No wheezes , rales, or rhonchi. GASTROINTESTINAL: Abdomen soft, non-tender, nondistended. No guarding.back tenderness MUSCULOSKELETAL: Extremities without clubbing, cyanosis, or edema. No joint tenderness, effusion, or edema noted. No calf tenderness. Negative Homans sign bilaterally. NEUROLOGICAL: Awake and alert. Cranial nerves II through XII intact. Motor and sensory grossly within normal limits. Five out of 5 muscle strength in all muscle groups. Normal speech. Laboratory Laboratory Tests Test 05/06/17 08:45 White Blood Count 5.4 Red Blood Count 3.06 Hemoglobin 10.2 Hematocrit 29.7 Mean Corpuscular Volume 96.9 Mean Corpuscular Hemoglobin 33.4 Mean Corpuscular Hemoglobin Concent 34.5 Red Cell Distribution Width 17.0 Platelet Count 141 Mean Platelet Volume 8.0 Neutrophils (%) (Auto) 74.7 Lymphocytes (%) (Auto) 10.3 Monocytes (%) (Auto) 13.4 Eosinophils (%) (Auto) 0.9 Basophils (%) (Auto) 0.7 Neutrophils # (Auto) 4.1 Lymphocytes # (Auto) 0.6 Monocytes # (Auto) 0.7 Eosinophils # (Auto) 0.1 Basophils # (Auto) 0.0 CBC Comment DIFF FINAL Differential Comment Blood Urea Nitrogen 7 Creatinine 0.53 Random Glucose 70 Total Protein 5.2 Albumin 3.1 Calcium Level 7.9 Alkaline Phosphatase 72 Aspartate Amino Transf (AST/SGOT) 37 Alanine Aminotransferase (ALT/SGPT) 33 Total Bilirubin 1.1 Sodium Level 132 Potassium Level 3.6 Chloride Level 99 Carbon Dioxide Level 24.0 Anion Gap 9 Estimat Glomerular Filtration Rate 112 Result Diagram: 05/06/17 0845 05/06/17 0845 Imaging Last 48 hours Impressions Carotid Artery Ultrasound 05/06/17 0000 Signed Impressions: Service Date/Time: May 14:06 - CONCLUSION: 1. High grade greater than 70%% stenosis in the left internal carotid artery by velocity criteria. 2. Less than 50%% diameter stenosis in the right internal carotid artery. 3. Abnormal biphasic flow in the vertebral arteries. Blake Cadena MD Caprini VTE Risk Assessment Caprini VTE Risk Assessment: Mod/High Risk (score >= 2) Caprini Risk Assessment Model Point Value = 1 Point Value = 2 Point Value = 3 Point Value = 5 Age 41-60 Minor surgery BMI > 25 kg/m2 Swollen legs Varicose veins or History of unexplained or recurrent spontaneous Oral contraceptives or hormone replacement Sepsis (< 1 month) Serious lung disease, including pneumonia (< 1 month) Abnormal pulmonary function Acute myocardial infarction Congestive heart failure (< 1 month) History of inflammatory bowel disease Medical patient at bed rest Age 61-74 Arthroscopic surgery Major open surgery (> 45 min) Laparoscopic surgery (> 45 min) Malignancy Confined to bed (> 72 hours) Immobilizing plaster cast Central venous access Age >= 75 History of VTE Family history of VTE Factor V Leiden Prothrombin [id number] Lupus anticoagulant Anticardiolipin antibodies Elevated serum homocysteine Heparin-induced thrombocytopenia Other congenital or acquired thrombophilia Stroke (< 1 month) Elective arthroplasty Hip, pelvis, or leg fracture Acute spinal cord injury (< 1 month) Prophylaxis Regimen Total Risk Factor Score Risk Level Prophylaxis Regimen 0-1 Low Early ambulation 2 Moderate Order ONE of the following: *Sequential Compression Device (SCD) *Heparin 5000 units SQ BID 3-4 Higher Order ONE of the following medications: *Heparin 5000 units SQ TID *Enoxaparin/Lovenox 40 mg SQ daily (WT < 150 kg, CrCl > 30 mL/min) *Enoxaparin/Lovenox 30 mg SQ daily (WT < 150 kg, CrCl > 10-29 mL/min) *Enoxaparin/Lovenox 30 mg SQ BID (WT < 150 kg, CrCl > 30 mL/min) AND/OR *Sequential Compression Device (SCD) 5 or more Highest Order ONE of the following medications: *Heparin 5000 units SQ TID (Preferred with Epidurals) *Enoxaparin/Lovenox 40 mg SQ daily (WT < 150 kg, CrCl > 30 mL/min) *Enoxaparin/Lovenox 30 mg SQ daily (WT < 150 kg, CrCl > 10-29 mL/min) *Enoxaparin/Lovenox 30 mg SQ BID (WT < 150 kg, CrCl > 30 mL/min) AND *Sequential Compression Device (SCD) Assessment and Plan Assessment and Plan T12 burst fx pelvic fx-pubic ramus seen by NS-further management depends on MRI finfing ortho-nonsurgical pain control dvt prophylaxis medicine consult Christine García MD May 07, 2017 08:47
[2017-05-07] MEDS: DORZOLAMIDE/TIMOLOL OPTH SOLN 10 ML BTL LEFT EYE SCH ×2 (08:48→21:11)
[2017-05-07] MEDS: DOXYCYCLINE HYCLATE 100 MG TAB PO SCH ×2 (08:50→21:11)
[2017-05-07] MEDS: PILL SPLITTER OTHER PRN (08:50)
[2017-05-07] MEDS: DOCUSATE SODIUM 100 MG CAP PO SCH ×2 (08:50→21:00)
[2017-05-07] MEDS: POTASSIUM CHLORIDE 10 MEQ CONTROLLED RELEASE TAB PO SCH (08:50)
[2017-05-07] MEDS: PRAVASTATIN SOD 80 MG TAB PO SCH (08:50)
[2017-05-07] MEDS: CIPROFLOXACIN 0.3% RIGHT EYE SCH ×3 (08:51→17:29)
[2017-05-07] MEDS: OPTH RIGHT EYE SCH ×3 (08:51→17:29)
[2017-05-07] MEDS: HEPARIN SODIUM - SQ 10,000 UNITS/ML VIAL SQ SCH ×2 (08:51→21:12)
[2017-05-07] MEDS: FAMOTIDINE 20 MG TAB PO SCH ×2 (08:51→21:11)
--- NOTE | 2017-05-07 10:36 | HHI.PR ---
Subjective Remarks Pt reports that her pain is better controlled today, rating it as 5/10. She is using her IS Tolerating diet well. Afebrile Objective Vitals Vital Signs Date Time Temp Pulse Resp B/P (MAP) Pulse Ox O2 Delivery O2 Flow Rate FiO2 05/07/17 08:16 97.0 79 14 121/82 (95) 05/07/17 00:00 96.9 75 18 98/71 (80) 90 05/06/17 23:00 23 05/06/17 20:00 96.9 96 20 122/88 (99) 93 05/06/17 16:00 97.9 86 17 128/86 (100) 92 05/06/17 13:32 93 05/06/17 12:00 97.3 78 16 108/69 (82) 93 Result Diagram: 05/06/17 0845 05/06/17 0845 Other Results Laboratory Tests Test 05/05/17 14:30 05/06/17 08:45 White Blood Count 8.0 TH/MM3 5.4 TH/MM3 Red Blood Count 3.49 MIL/MM3 3.06 MIL/MM3 Hemoglobin 11.1 GM/DL 10.2 GM/DL Hematocrit 33.2 % 29.7 % Mean Corpuscular Volume 95.1 FL 96.9 FL Mean Corpuscular Hemoglobin 31.7 PG 33.4 PG Mean Corpuscular Hemoglobin Concent 33.3 % 34.5 % Red Cell Distribution Width 16.2 % 17.0 % Platelet Count 177 TH/MM3 141 TH/MM3 Mean Platelet Volume 7.4 FL 8.0 FL Neutrophils (%) (Auto) 79.1 % 74.7 % Lymphocytes (%) (Auto) 8.3 % 10.3 % Monocytes (%) (Auto) 11.9 % 13.4 % Eosinophils (%) (Auto) 0.4 % 0.9 % Basophils (%) (Auto) 0.3 % 0.7 % Neutrophils # (Auto) 6.3 TH/MM3 4.1 TH/MM3 Lymphocytes # (Auto) 0.7 TH/MM3 0.6 TH/MM3 Monocytes # (Auto) 1.0 TH/MM3 0.7 TH/MM3 Eosinophils # (Auto) 0.0 TH/MM3 0.1 TH/MM3 Basophils # (Auto) 0.0 TH/MM3 0.0 TH/MM3 CBC Comment DIFF FINAL DIFF FINAL Differential Comment Blood Urea Nitrogen 9 MG/DL 7 MG/DL Creatinine 0.58 MG/DL 0.53 MG/DL Random Glucose 84 MG/DL 70 MG/DL Calcium Level 8.5 MG/DL 7.9 MG/DL Sodium Level 129 MEQ/L 132 MEQ/L Potassium Level 3.8 MEQ/L 3.6 MEQ/L Chloride Level 95 MEQ/L 99 MEQ/L Carbon Dioxide Level 24.8 MEQ/L 24.0 MEQ/L Anion Gap 9 MEQ/L 9 MEQ/L Estimat Glomerular Filtration Rate 101 ML/MIN 112 ML/MIN Total Protein 5.2 GM/DL Albumin 3.1 GM/DL Alkaline Phosphatase 72 U/L Aspartate Amino Transf (AST/SGOT) 37 U/L Alanine Aminotransferase (ALT/SGPT) 33 U/L Total Bilirubin 1.1 MG/DL Imaging Last Impressions Carotid Artery Ultrasound 05/06/17 Signed Impressions: Service Date/Time: May 14:06 - CONCLUSION: 1. High grade greater than 70%% stenosis in the left internal carotid artery by velocity criteria. 2. Less than 50%% diameter stenosis in the right internal carotid artery. 3. Abnormal biphasic flow in the vertebral arteries. Blake Cadena MD Thoracic Spine MRI 05/05/17 Signed Impressions: Service Date/Time: Friday, May 05, 2017 19:36 - CONCLUSION: 1. Compression deformity at the T12 vertebral body that appears acute. There is retropulsion of the posterior aspect of the T12 vertebral body by approximately 7 mm causing a moderate impression on the thecal sac. 2. More chronic appearing deformities identified at T5, T10 and T11. 3. Scattered disc abnormalities as described above. The most prominent discs are seen at the T7-T8 and T8-T9 levels as described above. Significant stenosis from the disc abnormalities is not seen. Duran Padilla MD Lumbar Spine CT 05/05/17 Signed Impressions: Service Date/Time: Friday, May 05, 2017 13:26 - CONCLUSION: Severe compressive injury with significant bony retropulsion at T12. T11 also appears to be at least mildly injured, however this level was not imaged in its entirety on the scan of the lumbar spine. Duran Araya MD Hip and Pelvis X-Ray 05/05/17 Signed Impressions: Service Date/Time: Friday, May 05, 2017 13:00 - CONCLUSION: Left pubic rami fractures Duran Araya MD Head CT 05/05/17 Signed Impressions: Service Date/Time: Friday, May 05, 2017 13:23 - CONCLUSION: 1. No acute intracranial abnormality. Tony Lakhani MD Chest X-Ray 05/05/17 Signed Impressions: Service Date/Time: Friday, May 05, 2017 15:37 - CONCLUSION: 1. No acute abnormality or significant interval change. Tony Lakhani MD Cervical Spine CT 05/05/17 Signed Impressions: Service Date/Time: Friday, May 05, 2017 15:21 - CONCLUSION: 1. Exaggerated cervical lordosis with very subtle anterolisthesis of C4 on C5, likely degenerative. Consider flexion and extension views if there is significant concern regarding ligamentous instability. 2. No acute fracture. 3. Degenerative spondylosis of the cervical spine. 4. Bulky bilateral carotid artery calcified plaque. Tony Lakhani MD Abdomen/Pelvis CT 05/05/17 Signed Impressions: Service Date/Time: Friday, May 05, 2017 15:26 - CONCLUSION: Low thoracic spine compression injuries. Left pelvic fractures. Dilated urinary bladder. No solid organ injuries. Duran Araya MD Objective Remarks General: NAD, AAOx3 Chest; CTA Cardiac: Regular Abd: +BS, soft ND/NT Ext: No edema, extensive skin changes to bilateral LE. A/P Problem List: (1) Compression fracture of T12 vertebra ICD Codes: S22.080A - Wedge compression fracture of T11-T12 vertebra, initial encounter for closed fracture Status: Acute Plan: - Pt is a 76 y/o WF with inflammatory polyarthropathy/RA, hyperlipidemia, hypothyroidism, and glaucoma. - Pt was brought to the ED at [facility] on 05/05/17 after she had a mechanical fall at home on the evening of 05/04/17 after she bumped into a piece of furniture that threw off her balance and she fell onto her left hip and hit her head. She reported severe pain in her lower back and coccyx, which has been constant since her fall. - Imaging studies in the ED revealed compression deformity at the T12 vertebral body that appears acute, with retropulsion of the posterior aspect of the T12 vertebral body by approximately 7 mm causing a moderate impression on the thecal sac and left pubic rami fractures. - Pt was transferred to [facility] for Neurosurgery and Orthopedic surgery evaluation. - Dr. Palm following, pt to have custom bracing placed today and will continue to monitor pain control with bracing before deciding about surgical options. - Pt has been see by Dr. Bailey and no surgical intervention is planned regarding her pelvic fractures. - Pain control PRN - Heart healthy diet - Pts Plavix and ASA are on hold for now until surgical intervention is decided. - Supportive care - DVT prophylaxis with Heparin (2) Pubic ramus fracture ICD Codes: S32.599A - Other specified fracture of unspecified pubis, initial encounter for closed fracture Status: Acute Plan: - See above. (3) Hypotension ICD Codes: I95.9 - Hypotension Status: Acute Plan: - Pt with low/normal BP currently, narcotics likely contributing. - Monitor vitals closely - Pt has IVF ordered (4) Carotid stenosis ICD Codes: I65.29 - Occlusion and stenosis of unspecified carotid artery Plan: - Carotid US (05/06) --> High grade greater than 70% stenosis in the left internal carotid artery by velocity criteria. Less than 50% diameter stenosis in the right internal carotid artery. Abnormal biphasic flow in the vertebral arteries. - Cardiology aware and recommending outpt followup with vascular surgery (5) Hypothyroidism ICD Codes: E03.9 - Hypothyroidism Status: Chronic Plan: - Home meds continued (6) Hyperlipemia ICD Codes: E78.5 - Hyperlipemia Status: Chronic Plan: - Home meds continued (7) Glaucoma ICD Codes: H40.9 - Glaucoma Status: Chronic Plan: - Home meds continued (8) Inflammatory arthritis ICD Codes: M06.4 - Inflammatory arthritis Status: Chronic Assessment and Plan Patient examined. Assessment and plan formulated with Hailey Davidson PA-C. I agree with the above. medically stable plan for brace and snf. d/c anytime from medical standpt Problem Qualifiers (1) Pubic ramus fracture: Qualified Codes: S32.592A - Other specified fracture of left pubis, initial encounter for closed fracture (2) Carotid stenosis: Qualified Codes: I65.23 - Occlusion and stenosis of bilateral carotid arteries Hailey Davidson May 07, 2017 10:36 Desmond Carter MD May 07, 2017 16:04
[2017-05-07 11:48] VITALS: BP 137/91; PULSE 73; RESP 14; TEMP 96.5; O2SAT 95
--- NOTE | 2017-05-07 12:45 | HHI.PR ---
Subjective Subjective Notes Pain controlled Awaiting TLSO brace to get OOB Objective Vitals/I&O Vital Signs Date Time Temp Pulse Resp B/P (MAP) Pulse Ox O2 Delivery O2 Flow Rate FiO2 05/07/17 11:48 96.5 73 14 137/91 (106) 95 05/05/17 17:14 Room Air Labs Laboratory Tests Test 05/06/17 08:45 White Blood Count 5.4 TH/MM3 Red Blood Count 3.06 MIL/MM3 Hemoglobin 10.2 GM/DL Hematocrit 29.7 % Mean Corpuscular Volume 96.9 FL Mean Corpuscular Hemoglobin 33.4 PG Mean Corpuscular Hemoglobin Concent 34.5 % Red Cell Distribution Width 17.0 % Platelet Count 141 TH/MM3 Mean Platelet Volume 8.0 FL Neutrophils (%) (Auto) 74.7 % Lymphocytes (%) (Auto) 10.3 % Monocytes (%) (Auto) 13.4 % Eosinophils (%) (Auto) 0.9 % Basophils (%) (Auto) 0.7 % Neutrophils # (Auto) 4.1 TH/MM3 Lymphocytes # (Auto) 0.6 TH/MM3 Monocytes # (Auto) 0.7 TH/MM3 Eosinophils # (Auto) 0.1 TH/MM3 Basophils # (Auto) 0.0 TH/MM3 CBC Comment DIFF FINAL Differential Comment Blood Urea Nitrogen 7 MG/DL Creatinine 0.53 MG/DL Random Glucose 70 MG/DL Total Protein 5.2 GM/DL Albumin 3.1 GM/DL Calcium Level 7.9 MG/DL Alkaline Phosphatase 72 U/L Aspartate Amino Transf (AST/SGOT) 37 U/L Alanine Aminotransferase (ALT/SGPT) 33 U/L Total Bilirubin 1.1 MG/DL Sodium Level 132 MEQ/L Potassium Level 3.6 MEQ/L Chloride Level 99 MEQ/L Carbon Dioxide Level 24.0 MEQ/L Anion Gap 9 MEQ/L Estimat Glomerular Filtration Rate 112 ML/MIN Radiology Last Impressions Thoracic Spine MRI 05/05/17 0000 Signed Impressions: Service Date/Time: Friday, May 05, 2017 19:36 - CONCLUSION: 1. Compression deformity at the T12 vertebral body that appears acute. There is retropulsion of the posterior aspect of the T12 vertebral body by approximately 7 mm causing a moderate impression on the thecal sac. 2. More chronic appearing deformities identified at T5, T10 and T11. 3. Scattered disc abnormalities as described above. The most prominent discs are seen at the T7-T8 and T8-T9 levels as described above. Significant stenosis from the disc abnormalities is not seen. Duran Padilla MD Lumbar Spine CT 05/05/17 Signed Impressions: Service Date/Time: Friday, May 05, 2017 13:26 - CONCLUSION: Severe compressive injury with significant bony retropulsion at T12. T11 also appears to be at least mildly injured, however this level was not imaged in its entirety on the scan of the lumbar spine. Duran Araya MD Hip and Pelvis X-Ray 05/05/17 Signed Impressions: Service Date/Time: Friday, May 05, 2017 13:00 - CONCLUSION: Left pubic rami fractures Duran Araya MD Head CT 05/05/17 Signed Impressions: Service Date/Time: Friday, May 05, 2017 13:23 - CONCLUSION: 1. No acute intracranial abnormality. Tony Lakhani MD Chest X-Ray 05/05/17 Signed Impressions: Service Date/Time: Friday, May 05, 2017 15:37 - CONCLUSION: 1. No acute abnormality or significant interval change. Tony Lakhani MD Cervical Spine CT 05/05/17 Signed Impressions: Service Date/Time: Friday, May 05, 2017 15:21 - CONCLUSION: 1. Exaggerated cervical lordosis with very subtle anterolisthesis of C4 on C5, likely degenerative. Consider flexion and extension views if there is significant concern regarding ligamentous instability. 2. No acute fracture. 3. Degenerative spondylosis of the cervical spine. 4. Bulky bilateral carotid artery calcified plaque. Tony Lakhani MD Abdomen/Pelvis CT 05/05/17 Signed Impressions: Service Date/Time: Friday, May 05, 2017 15:26 - CONCLUSION: Low thoracic spine compression injuries. Left pelvic fractures. Dilated urinary bladder. No solid organ injuries. Duran Araya MD Narrative Exam GENERAL: 76-year-old well-nourished, well developed female lying in bed. SKIN: Warm and dry. HEAD: Normocephalic. ENT: No nasal bleeding or discharge. Mucous membranes pink and moist. NECK: Trachea midline. No JVD. CARDIOVASCULAR: Regular rate and rhythm. RESPIRATORY: No accessory muscle use. Lungs clear to auscultation. Breath sounds equal bilaterally. GASTROINTESTINAL: Abdomen soft, non-tender, nondistended. + BS. MUSCULOSKELETAL: Extremities without cyanosis, or edema. No obvious deformities. NEUROLOGICAL: Awake and alert. Normal speech. A/P Assessment and Plan QUINAULT: Mechanical fall from the standing position landing on her hip and striking her head. No LOC. Able to ambulate after the fall but continued to have pain so came to the ED. Takes Plavix and ASA at home. INJURIES: T12 compression fx LEFT superior and inferior pubic rami fxs PMHx: PVD, HLD, glaucoma, hypothyroidism, CAD, CVA, RA Diet: Regular Pulm: IS Pain: [place], Morphine IV, Robaxin Activity: BR. PT ordered. OK for OOB when TLSO brace arrives. (PWB LLE) GI: IV Protonix Bowel: Miralax, Colace, PRN Lactulose. LBM 0 DVT: SCDs, Heparin 5000 SQ BID T12 compression fx Neurosurgery consulted Nonsurgical management TLSO brace when OOB NS plans to see how patient does OOB with just TLSO brace before decision re: sx is made Cardiology consulted for surgical clearance PT ordered SQ Heparin LEFT superior and inferior pubic rami fxs Orthopedics consulted Nonoperative management Pain control PWB LLE PT ordered Hospitalist consulted to assist with medical management. Plan of care discussed with patient at bedside. Case management consulted for discharge planning. Patient will likely needs SNF placement, she is agreeable. Remarks seen and examined with ADULT LITERACY TEACHER-agree with assessment and plan pain well controlled OOB with TLSO NS plan noted Nelson Jaeger May 07, 2017 12:45 Christine García MD May 07, 2017 16:22
--- NOTE | 2017-05-07 12:55 | HHI.NSPN ---
(Katherine Olson) Note Status Status: Progress Note (Katherine Olson) Interval History Interval History Mrs. Dye is a 76 y/o female with history of HTN, hyperlipidemia, hypothyroidism, and glaucoma. She was brought to [place] ED after she had fallen at home on the evening of 05/04/17. She typically uses a walker to ambulate at home but on the evening of 05/04 she did not use one and tripped into furniture that threw off her balance and she fell onto her left hip and hit her head. Her grandson and [id number] live with her and helped her up. Since her fall she reported severe pain in her lower back and coccyx, which has been constant. She denies any associated numbness or weakness. She is on Plavix and aspirin which she reports she has been using it for 2 years for PAD in her LE. Imaging studies revealed a compression deformity of T12 vertebral body, with retropulsion of the posterior aspect of the T12 vertebral body by approximately 7 mm causing a moderate impression on the thecal sac. In addition she had left pubic rami fractures. He was transferred to [facility] for Neurosurgery and Orthopedic consultation 05/07: reports pain is better controlled today, appearing more comfortable, feeding herself breakfast. no acute changes. (Katherine Olson) Labs, Micro, & Vital Signs Results Date Time Temp Pulse Resp B/P (MAP) Pulse Ox O2 Delivery O2 Flow Rate FiO2 05/07/17 11:48 96.5 73 14 137/91 (106) 95 05/07/17 08:16 97.0 79 14 121/82 (95) 05/07/17 00:00 96.9 75 18 98/71 (80) 90 05/06/17 23:00 23 05/06/17 20:00 96.9 96 20 122/88 (99) 93 05/06/17 16:00 97.9 86 17 128/86 (100) 92 05/06/17 13:32 93 Constitutional Vital Signs Date Time Temp Pulse Resp B/P (MAP) Pulse Ox O2 Delivery O2 Flow Rate FiO2 05/07/17 11:48 96.5 73 14 137/91 (106) 95 05/07/17 08:16 97.0 79 14 121/82 (95) 05/07/17 00:00 96.9 75 18 98/71 (80) 90 05/06/17 23:00 23 05/06/17 20:00 96.9 96 20 122/88 (99) 93 05/06/17 16:00 97.9 86 17 128/86 (100) 92 05/06/17 13:32 93 (Katherine Olson) Review of Systems Constitutional: DENIES: Fever, Chills Eyes: COMPLAINS OF: Vision loss Cardiovascular: DENIES: Chest pain Musculoskeletal: COMPLAINS OF: Back pain Neurologic: DENIES: Localized weakness (Katherine Olson) Physical Exam Ms. Dye is alert, conversing well. Following command, currently feeding herself breakfast. Cranial nerve examination: pupils equal. Facial motor symmetrical. Cervical spine decreased range of motion due to age related spondylosis with mild discomfort. Muscle strength: In the lower extremities, strength is 4-5/5 in both iliopsoas, quadriceps, hamstrings, plantar flexion, dorsiflexion, and extensor hallicus longus. Moving her upper extremities well. Sensory examination is intact to light touch in lower extremities Deep tendon reflexes: patellar and Achilles are 1+, bilaterally. Plantar flexors b/l. Senia sign is negative. There is no ankle clonus. (Katherine Olson) joaquim Dye is alert, conversing well. Following command, currently feeding herself breakfast. Cranial nerve examination: pupils equal. Facial motor symmetrical. Cervical spine decreased range of motion due to age related spondylosis with mild discomfort. Muscle strength: In the lower extremities, strength is 4-5/5 in both iliopsoas, quadriceps, hamstrings, plantar flexion, dorsiflexion, and extensor hallicus longus. Moving her upper extremities well. Sensory examination is intact to light touch in lower extremities Deep tendon reflexes: patellar and Achilles are 1+, bilaterally. Plantar flexors b/l. Senia sign is negative. There is no ankle clonus. Cerebellay exam is normal (Judah Palm MD) Medications Current Medications Current Medications Medications (Trade) Dose Ordered Sig/Ann Route PRN Reason Start Time Stop Time Status Last Admin Dose Admin Sodium Chloride (NS Flush) 2 ml UNSCH PRN IV FLUSH FLUSH AFTER USING IV ACCESS 05/05/17 17:00 05/06/17 21:18 Morphine Sulfate (Morphine Inj) 2 mg Q4HR PRN IV PUSH BREAKTHROUGH PAIN 05/05/17 17:00 05/06/17 21:17 Acetaminophen/ Hydrocodone Bitart ([place] 5-325 Mg) 1 tab Q4H PRN PO PAIN 3-10 05/05/17 17:00 Acetaminophen (Tylenol) 650 mg Q6H PRN PO TEMPERATURE > 102 F 05/05/17 17:00 Enalaprilat (Vasotec Inj) 1.25 mg Q8H PRN IV PUSH SBP>180, DBP>95 05/05/17 17:00 Ondansetron HCl (Zofran Inj) 4 mg Q6H PRN IV PUSH NAUSEA OR VOMITING 05/05/17 17:00 Dorzolamide/ Timolol (Cosopt 2-0.5% Opth Soln) 1 drop BID LEFT EYE 05/05/17 21:00 05/07/17 08:48 Latanoprost (Xalatan 0.005% Opth Soln) 1 drop HS LEFT EYE 05/05/17 21:00 05/06/17 21:19 Levothyroxine Sodium (Synthroid) 88 mcg DAILY@0600 PO 05/06/17 06:00 05/07/17 06:09 Potassium Chloride (KCl) 10 meq DAILY PO 05/06/17 09:00 05/07/17 08:50 Pravastatin Sodium (Pravachol) 80 mg DAILY PO 05/06/17 09:00 05/07/17 08:50 Methocarbamol (Robaxin) 500 mg Q8HR PO 05/06/17 10:45 05/07/17 06:09 Heparin Sodium (Porcine) (Heparin Inj) 5,000 units Q12HR SQ 05/06/17 21:00 05/07/17 08:51 Famotidine (Pepcid) 20 mg BID PO 05/07/17 09:00 05/07/17 08:51 Polyethylene Glycol (Miralax) 17 gm DAILY PO 05/06/17 12:00 05/07/17 08:47 Lactulose (Lactulose Liq) 30 ml DAILY PRN PO constipation 05/06/17 12:00 Docusate Sodium (Colace) 100 mg BID PO 05/06/17 12:00 05/07/17 08:50 Patient Own Medication Cyclosporine Opth 0.05% (Resta... BID LEFT EYE 05/06/17 21:00 Future Hold Doxycycline Hyclate (Vibratab) 50 mg BID PO 05/06/17 21:00 05/07/17 08:50 Miscellaneous (Pill Splitter) 1 ea UNSCH PRN OTHER SEE LABEL COMMENTS 05/06/17 12:45 05/07/17 08:50 Non-Formulary Medication 1 ea TID RIGHT EYE 05/06/17 18:00 05/07/17 08:51 (Katherine Olson) Medical Decision Making MDM Remarks 76 y/o female s/p trip and fall 05/04 developed intractable lower thoracolumbar pain T12 burst fracture, patient appears high risk for surgery- requiring medical clearance (Katherine Olson) Plan Plan Remarks awaiting medical/cardiac clearance surgical vs nonsurgical mgt, cont pain control and supportive care PT, ok to be out of bed with custom TLSO (Katherine Olson) Attending Statement Neuro. neuro checks in a serial fashion. Recommend MRI T spine. WIll defer recommendations to completion of her MRI Pulmonary. Continue aggressive pulmonary toilette, nasotracheal suction, and breathing treatments with nebulizers. Hypotension. Continue home meds. Monitor vitals closely Will need to hold Plavix if surgfical procedure Hyperlipemia. Continue statins Glaucoma. Continue home meds Pelvic fracture. Consult orthopedics PT and OT Nutrition. Tolerating Oral diet Renal. Continue to monitor closely urine output, BUN and creatinine Endocrine. Continue to Monitor serial Acu checks and SSI as needed in detail ID continue to monitor for signs of infection Continue Protonix for stress ulcer prophylaxis Continue [place]on hose and SCD's for DVT prophylaxis Discussed with Dr Lobo The exam, history, and the medical decision-making described in the above note were completed with the assistance of the mid-level provider. I reviewed and agree with the findings presented. I attest that I had a [id number] encounter with the patient on the same day, and personally performed and documented my assessment and findings in the medical record. (Judah Palm MD) Katherine Olson May 07, 2017 12:55 Judah Palm MD May 09, 2017 17:57
[2017-05-07] MEDS: ACETAMINOPHEN/HYDROcodone 325 MG/5 MG TAB PO PRN ×2 (12:59→21:23)
--- NOTE | 2017-05-07 13:39 | PD.ORT.PN ---
Subjective Subjective Remarks She continues to have substantial back and sacral pain. She has some groin and upper left hip pain. She denies any new radiating leg pain. She has questions about her injury. She is awaiting medical clearance to see if she is a candidate for surgical treatment for her spine. Objective Vitals Vital Signs Date Time Temp Pulse Resp B/P (MAP) Pulse Ox O2 Delivery O2 Flow Rate FiO2 05/07/17 11:48 96.5 73 14 137/91 (106) 95 05/07/17 08:16 97.0 79 14 121/82 (95) 05/07/17 00:00 96.9 75 18 98/71 (80) 90 05/06/17 23:00 23 05/06/17 20:00 96.9 96 20 122/88 (99) 93 05/06/17 16:00 97.9 86 17 128/86 (100) 92 I/O 05/06/17 05/06/17 05/06/17 05/07/17 05/07/17 05/07/17 07:00 15:00 23:00 07:00 15:00 23:00 Intake Total 528 ml 720 ml 0 ml Output Total 1000 ml Balance 528 ml -280 ml 0 ml Intake Oral 0 ml 720 ml IV Total 528 ml 0 ml Output Urine Total 1000 ml # Bowel Movements 0 Result Diagram: 05/06/1745 05/06/1745 Objective Remarks Sitting up in bed, staff internist office based only is room NAD Pelvis/ LLE No skin abrasion in the pelvic region, no deformity, with palpation pubic ramus some tenderness to the left Left hip ROM shows some limitation, some pain with motion which she localizes to her groin and pubic region Distal AT strength 5/5, +sens, +nvi Neg homans sign Assessment & Plan Assessment and Plan Nonsurgical care. Fracture left initial and anterior ramus. Burst fracture variant thoracolumbar spine, T12 - being treated by neurosurgery. PLAN: Continue with limited activity left leg. She is WBAT but limited walking. Transition bed to chair and bathroom only per her pelvic condition. Spine management by Dr. Smith and his staff. They are waiting on medical clearance to decide whether to move forward with surgical treatment. PO pain meds as needed. Nonsurgical treatment of this patient's pelvis condition. We will follow her intermittently if she remains in the hospital for an extended period of time. Her pelvic injury is stable. Follow up outpatient in 3 weeks. Sandra Mcfarland May 07, 2017 13:39
[2017-05-07] MEDS ORDERED: DOCU1CAP39 PO (19:42)
[2017-05-07 20:00] VITALS: BP 119/81; PULSE 85; RESP 18; TEMP 96.9; O2SAT 93
[2017-05-07 20:18] VITALS: PULSE 83
[2017-05-07] MEDS: LATANOPROST 0.005% OPHT SOLN 2.5 ML BTL LEFT EYE SCH (21:11)
[2017-05-08] VITALS (7 sets, daily range): BP systolic 92–117; BP diastolic 60–73; PULSE 63–82; RESP 15–20; TEMP 95.9–97.9; O2SAT 94–95
[2017-05-08] MEDS: LEVOTHYROXINE SODIUM 88 MCG TAB PO SCH (06:04)
[2017-05-08] MEDS: METHOCARBAMOL 500 MG TAB PO SCH ×3 (06:04→20:51)
[2017-05-08] MEDS: POLYETHYLENE GLYCOL 17 GM PKG PO SCH (07:58)
[2017-05-08] MEDS: LACTULOSE SYRUP 20 GM/30 ML CUP PO SCH (07:58)
[2017-05-08] MEDS: DOCUSATE SODIUM 50 MG/SENNA 8.6 MG TAB PO SCH ×2 (07:58→20:51)
[2017-05-08] MEDS: FAMOTIDINE 20 MG TAB PO SCH ×2 (07:59→20:51)
[2017-05-08] MEDS: PRAVASTATIN SOD 80 MG TAB PO SCH (07:59)
[2017-05-08] MEDS: POTASSIUM CHLORIDE 10 MEQ CONTROLLED RELEASE TAB PO SCH (07:59)
[2017-05-08] MEDS: DOXYCYCLINE HYCLATE 100 MG TAB PO SCH ×2 (07:59→20:51)
[2017-05-08] MEDS: OPTH RIGHT EYE SCH ×3 (08:03→17:26)
[2017-05-08] MEDS: CIPROFLOXACIN 0.3% RIGHT EYE SCH ×3 (08:03→17:26)
[2017-05-08] MEDS: DORZOLAMIDE/TIMOLOL OPTH SOLN 10 ML BTL LEFT EYE SCH ×2 (08:04→20:50)
[2017-05-08] MEDS: HEPARIN SODIUM - SQ 10,000 UNITS/ML VIAL SQ SCH ×2 (09:02→20:52)
--- NOTE | 2017-05-08 11:10 | HHI.PR ---
Subjective Subjective Notes PTD: 4; HD: 3 Asleep on rounds TLSO at bedside. Objective Vitals/I&O Vital Signs Date Time Temp Pulse Resp B/P (MAP) Pulse Ox O2 Delivery O2 Flow Rate FiO2 05/08/17 08:00 97.5 70 20 117/73 (88) 95 05/05/17 17:14 Room Air Labs Laboratory Tests Test 05/06/17 08:45 White Blood Count 5.4 TH/MM3 Red Blood Count 3.06 MIL/MM3 Hemoglobin 10.2 GM/DL Hematocrit 29.7 % Mean Corpuscular Volume 96.9 FL Mean Corpuscular Hemoglobin 33.4 PG Mean Corpuscular Hemoglobin Concent 34.5 % Red Cell Distribution Width 17.0 % Platelet Count 141 TH/MM3 Mean Platelet Volume 8.0 FL Neutrophils (%) (Auto) 74.7 % Lymphocytes (%) (Auto) 10.3 % Monocytes (%) (Auto) 13.4 % Eosinophils (%) (Auto) 0.9 % Basophils (%) (Auto) 0.7 % Neutrophils # (Auto) 4.1 TH/MM3 Lymphocytes # (Auto) 0.6 TH/MM3 Monocytes # (Auto) 0.7 TH/MM3 Eosinophils # (Auto) 0.1 TH/MM3 Basophils # (Auto) 0.0 TH/MM3 CBC Comment DIFF FINAL Differential Comment Blood Urea Nitrogen 7 MG/DL Creatinine 0.53 MG/DL Random Glucose 70 MG/DL Total Protein 5.2 GM/DL Albumin 3.1 GM/DL Calcium Level 7.9 MG/DL Alkaline Phosphatase 72 U/L Aspartate Amino Transf (AST/SGOT) 37 U/L Alanine Aminotransferase (ALT/SGPT) 33 U/L Total Bilirubin 1.1 MG/DL Sodium Level 132 MEQ/L Potassium Level 3.6 MEQ/L Chloride Level 99 MEQ/L Carbon Dioxide Level 24.0 MEQ/L Anion Gap 9 MEQ/L Estimat Glomerular Filtration Rate 112 ML/MIN Narrative Exam GENERAL: This is a 76 year old female asleep in bed. Comfortable. No distress. SKIN: Warm and dry. HEAD: Atraumatic. Normocephalic. EYES: PERRLA ENT: No nasal bleeding or discharge. Mucous membranes pink and moist. NECK: Trachea midline. No JVD. CARDIOVASCULAR: Regular rate and rhythm. RESPIRATORY: No accessory muscle use. Lungs are clear to auscultation. Breath sounds equal bilaterally. No distress or dyspnea. GASTROINTESTINAL: BS + x 4 quads. Abdomen soft, non-tender, nondistended. MUSCULOSKELETAL: Extremities without cyanosis, or edema. + peripheral pulses x 4 extremities. Warm with good capillary refill and sensation. MAEW. NEUROLOGICAL: Asleep. A/P Problem List: (1) Postoperative anemia ICD Codes: D64.9 - Postoperative anemia Status: Acute (2) Hip fracture, right ICD Codes: S72.001A - Hip fracture, right Status: Acute (3) Carotid stenosis ICD Codes: I65.29 - Occlusion and stenosis of unspecified carotid artery (4) Pubic ramus fracture ICD Codes: S32.599A - Other specified fracture of unspecified pubis, initial encounter for closed fracture Status: Acute (5) Compression fracture of T12 vertebra ICD Codes: S22.080A - Wedge compression fracture of T11-T12 vertebra, initial encounter for closed fracture Status: Acute Assessment and Plan LOWER BRULE: This is a 76 year old female who sustained a mechanical fall. She bumped into a piece of furniture that threw her off balance causing her to fall. She landed on her hip and struck her head. No LOC. She was able to ambulate after the fall but continued to have pain so came to the ED. Takes Plavix and ASA at home. INJURIES: T12 compression fx LEFT superior and inferior pubic rami fxs (non-op) PMHx: Carotid stenosis. PVD, HLD, glaucoma, hypothyroidism, CAD, RA Procedures: Consults: Neurosurgery. Orthopedics. Hospitalist. Cardiology. Case management. Diet: Regular diet. Tolerating po diet. Encourage good po intake with each meal. Pulmonary: Encourage good pulmonary toileting. IS at bedside and pt encouraged to use. Rationale for use explained to patient, and verbalized understanding. Follow up labs in the AM. PAIN Management: [place] 5 mg q 4h. Morphine 2mg q 4, Robaxin 500 mg q 8h. Activity: OOB with TLSO brace. PT and OT ordered. (TLSO brace, PWB LLE) GI prophylaxis: Pepcid BID. Bowel regimen: [place]ila-colace BID. Miralax. Lactulose. LBM: 0 DVT prophylaxis: Mechanical VTE with SCDs. Chemical management with Heparin 5000 units BID. DC Planning: Case management consulted for assistance with final discharge disposition. Emotional support provided to patient and family at bedside and plan of care discussed. Discussed with RN at bedside. Patient is hemodynamically stable and being managed on the med/surg floor. The trauma team will round each day, and evaluate plan of care on a daily basis. T12 compression fx Neurosurgery consulted and assisting in management and care Nonsurgical management TLSO brace when OOB NS plans to see how patient does OOB with just TLSO brace before decision re: sx is made Cardiology consulted for surgical clearance - clear PT ordered SQ Heparin for DVT prophylaxis LEFT superior and inferior pubic rami fxs Orthopedics consulted and assisting in management and care. Nonoperative management Pain control PWB LLE PT ordered Remarks seen by ALTERATION MANAGER NS plan pending ambulation with TLSO brace stable from surgical standpoint Problem Qualifiers (1) Carotid stenosis: Qualified Codes: I65.23 - Occlusion and stenosis of bilateral carotid arteries (2) Pubic ramus fracture: Qualified Codes: S32.592A - Other specified fracture of left pubis, initial encounter for closed fracture Amelie Morrison May 08, 2017 11:10 Christine García MD May 08, 2017 17:45
--- NOTE | 2017-05-08 16:38 | HHI.NSPN ---
History Chief Complaint: back pain Interval History 76-year-old female with T12 fracture. Exam Results Vital Signs Date Time Temp Pulse Resp B/P (MAP) Pulse Ox O2 Delivery O2 Flow Rate FiO2 05/08/17 12:00 96.9 82 17 92/60 (71) 95 05/05/17 17:14 Room Air Intake and Output 05/08/17 05/08/17 05/09/17 08:00 16:00 00:00 Intake Total 360 ml Balance 360 ml Physical Examination Ms. Dye is alert, conversing well. Following command Cranial nerve examination: pupils equal. Facial motor symmetrical. Cervical spine decreased range of motion due to age related spondylosis with mild discomfort. Muscle strength: 5/5 major flexion and extension groups in the upper extremities. Mostly 4+-5/5 major flexion and extension groups lower extremities with some complaint of back pain with testing Sensory examination is intact to light touch in lower extremities Deep tendon reflexes: patellar and Achilles are 1+, bilaterally. Plantar flexors b/l. Senia sign is negative. There is no ankle clonus. Medical Decision Making Impression and Plan Impression: 1. T12 fracture. Neurologic exam stable Plan: Discussed with patient Continuing to mobilize out of bed with TLSO brace and physical therapy as tolerated. Plan to continue conservative treatment at present. If she does not progress well with conservative treatment and brace, may need to consider surgical intervention depending on medical clearance. Grant Zapata MD May 08, 2017 16:38
[2017-05-08] MEDS: LATANOPROST 0.005% OPHT SOLN 2.5 ML BTL LEFT EYE SCH (20:50)
[2017-05-09] VITALS (8 sets, daily range): BP systolic 91–122; BP diastolic 55–79; PULSE 70–79; RESP 15–19; TEMP 96.2–97.8; O2SAT 93–98
[2017-05-09 05:09] LABS: AUTOMATED NEUTROPHIL # 4.1 TH/MM3 (1.8-7.7); BASOPHIL % 0.7 % (0.0-2.0); EOSINOPHIL # 0.1 TH/MM3 (0-0.4); EOSINOPHIL % 1.3 % (0.0-4.0); HEMATOCRIT 30.7 % (35.0-46.0); HEMO FLAGS DIFF FINAL; LYMPH % 18.7 % (9.0-44.0); LYMPHOCYTE # 1.2 TH/MM3 (1.0-4.8); MEAN CELL VOLUME 97.5 FL (80.0-100.0); MEAN CORPUSCULAR HEMOGLOBIN 32.8 PG (27.0-34.0); MEAN CORPUSCULAR HGB CONC 33.6 % (32.0-36.0); MONO % 15.6 % (0.0-8.0); NEUT % 63.7 % (16.0-70.0); PLATELET COUNT 163 TH/MM3 (150-450); RED BLOOD COUNT 3.15 MIL/MM3 (4.00-5.30); RED CELL DISTRIBUTION WIDTH 17.2 % (11.6-17.2); WHITE BLOOD COUNT 6.4 TH/MM3 (4.0-11.0)
[2017-05-09 05:21] LABS: BICARBONATE 25.8 MEQ/L (21.0-32.0); POTASSIUM 3.8 MEQ/L (3.5-5.1)
[2017-05-09] MEDS: LEVOTHYROXINE SODIUM 88 MCG TAB PO SCH (05:24)
[2017-05-09] MEDS: METHOCARBAMOL 500 MG TAB PO SCH ×3 (05:24→21:39)
[2017-05-09] MEDS: DOXYCYCLINE HYCLATE 100 MG TAB PO SCH ×2 (08:30→21:38)
[2017-05-09] MEDS: POTASSIUM CHLORIDE 10 MEQ CONTROLLED RELEASE TAB PO SCH (08:30)
[2017-05-09] MEDS: PRAVASTATIN SOD 80 MG TAB PO SCH (08:30)
[2017-05-09] MEDS: DOCUSATE SODIUM 50 MG/SENNA 8.6 MG TAB PO SCH ×2 (08:30→21:38)
[2017-05-09] MEDS: FAMOTIDINE 20 MG TAB PO SCH ×2 (08:30→21:37)
[2017-05-09] MEDS: DORZOLAMIDE/TIMOLOL OPTH SOLN 10 ML BTL LEFT EYE SCH ×2 (08:37→21:30)
[2017-05-09] MEDS: OPTH RIGHT EYE SCH ×3 (08:37→17:46)
[2017-05-09] MEDS: CIPROFLOXACIN 0.3% RIGHT EYE SCH ×3 (08:37→17:46)
[2017-05-09] MEDS: HEPARIN SODIUM - SQ 10,000 UNITS/ML VIAL SQ SCH ×2 (08:37→21:40)
[2017-05-09] MEDS: ACETAMINOPHEN/HYDROcodone 325 MG/5 MG TAB PO PRN ×3 (08:41→21:43)
[2017-05-09] MEDS: POLYETHYLENE GLYCOL 17 GM PKG PO SCH (09:00)
[2017-05-09] MEDS: LACTULOSE SYRUP 20 GM/30 ML CUP PO SCH (09:00)
--- NOTE | 2017-05-09 11:03 | HHI.PR ---
Subjective Subjective Notes PTD: 5: HD: 4 Patient lying in bed. No distress noted. Patient states, "I'm not doing too bad." Patient states that she has walked to the chair, then back to the restroom with minimal problems. Patient states, "I'm doing the best that I can." Objective Vitals/I&O Vital Signs Date Time Temp Pulse Resp B/P (MAP) Pulse Ox O2 Delivery O2 Flow Rate FiO2 05/09/17 09:41 18 05/09/17 08:00 96.9 75 97/63 (74) 98 05/05/17 17:14 Room Air Labs Laboratory Tests Test 05/09/17 03:53 White Blood Count 6.4 Red Blood Count 3.15 Hemoglobin 10.3 Hematocrit 30.7 Mean Corpuscular Volume 97.5 Mean Corpuscular Hemoglobin 32.8 Mean Corpuscular Hemoglobin Concent 33.6 Red Cell Distribution Width 17.2 Platelet Count 163 Mean Platelet Volume 8.0 Neutrophils (%) (Auto) 63.7 Lymphocytes (%) (Auto) 18.7 Monocytes (%) (Auto) 15.6 Eosinophils (%) (Auto) 1.3 Basophils (%) (Auto) 0.7 Neutrophils # (Auto) 4.1 Lymphocytes # (Auto) 1.2 Monocytes # (Auto) 1.0 Eosinophils # (Auto) 0.1 Basophils # (Auto) 0.0 CBC Comment DIFF FINAL Differential Comment Blood Urea Nitrogen 6 Creatinine 0.54 Random Glucose 86 Calcium Level 7.6 Sodium Level 134 Potassium Level 3.8 Chloride Level 101 Carbon Dioxide Level 25.8 Anion Gap 7 Estimat Glomerular Filtration Rate 109 Narrative Exam GENERAL: This is a 76 year old female lying in bed. No distress noted. SKIN: Warm and dry. HEAD: Atraumatic. Normocephalic. EYES: PERRLA ENT: No nasal bleeding or discharge. Mucous membranes pink and moist. NECK: Trachea midline. No JVD. CARDIOVASCULAR: Regular rate and rhythm. RESPIRATORY: No accessory muscle use. Lungs are clear to auscultation. Breath sounds equal bilaterally. No distress or dyspnea. GASTROINTESTINAL: BS + x 4 quads. Abdomen soft, non-tender, nondistended. MUSCULOSKELETAL: Extremities without cyanosis, or edema. + peripheral pulses x 4 extremities. Warm with good capillary refill and sensation. MAEW. NEUROLOGICAL: A&O x 3. Normal speech and pattern. A/P Problem List: (1) Postoperative anemia ICD Codes: D64.9 - Postoperative anemia Status: Acute (2) Hip fracture, right ICD Codes: S72.001A - Hip fracture, right Status: Acute (3) Carotid stenosis ICD Codes: I65.29 - Occlusion and stenosis of unspecified carotid artery (4) Pubic ramus fracture ICD Codes: S32.599A - Other specified fracture of unspecified pubis, initial encounter for closed fracture Status: Acute (5) Compression fracture of T12 vertebra ICD Codes: S22.080A - Wedge compression fracture of T11-T12 vertebra, initial encounter for closed fracture Status: Acute Assessment and Plan [place]: This is a 76 year old female who sustained a mechanical fall. She bumped into a piece of furniture that threw her off balance causing her to fall. She landed on her hip and struck her head. No LOC. She was able to ambulate after the fall but continued to have pain so came to the ED. Takes Plavix and ASA at home. INJURIES: T12 compression fx LEFT superior and inferior pubic rami fxs (non-op) PMHx: Carotid stenosis. PVD, HLD, glaucoma, hypothyroidism, CAD, RA Procedures: Consults: Neurosurgery. Orthopedics. Hospitalist. Cardiology. Case management. Diet: Regular diet. Tolerating po diet. Encourage good po intake with each meal. Pulmonary: Encourage good pulmonary toileting. IS at bedside and pt encouraged to use. Rationale for use explained to patient, and verbalized understanding. PAIN Management: [place] 5 mg q 4h. Morphine 2mg q 4, Robaxin 500 mg q 8h. Activity: OOB with TLSO brace. PT and OT ordered. (TLSO brace, PWB LLE) patient states she has been OOB with TLSO brace to sit in a chair and to walk to the restroom. GI prophylaxis: Pepcid BID. Bowel regimen: Twila-colace BID. Miralax. Lactulose. LBM: 05/09. DVT prophylaxis: Mechanical VTE with SCDs. Chemical management with Heparin 5000 units BID. DC Planning: Case management consulted for assistance with final discharge disposition. If conservative treatment remains the plan for her T12 fracture, she will require placement. Family to choose SNF Once neurosurgery clears her for discharge, she may discharge to SNF. Emotional support provided to patient and family at bedside and plan of care discussed. Discussed with RN at bedside. Patient is hemodynamically stable and being managed on the med/surg floor. The trauma team will round each day, and evaluate plan of care on a daily basis. T12 compression fx Neurosurgery consulted and assisting in management and care Nonsurgical management at this time TLSO brace when OOB NS plans to see how patient does OOB with just TLSO brace before decision re: sx is made Patient has been OOB well using TLSO brace. Cardiology consulted for surgical clearance - cleared for surgery if warranted PT ordered SQ Heparin for DVT prophylaxis LEFT superior and inferior pubic rami fxs Orthopedics consulted and assisting in management and care. Nonoperative management Pain control PWB LLE PT ordered Remarks Patient seen and examined to nurse practitioners, she is doing well, pain is well-controlled ,continue to follow the neurosurgical plan with nonsurgical management ambulation with TLSO brace, stable from general trauma standpoint Problem Qualifiers (1) Carotid stenosis: Qualified Codes: I65.23 - Occlusion and stenosis of bilateral carotid arteries (2) Pubic ramus fracture: Qualified Codes: S32.592A - Other specified fracture of left pubis, initial encounter for closed fracture Amelie Morrison May 09, 2017 11:03 Christine García MD May 09, 2017 13:48
--- NOTE | 2017-05-09 19:06 | HHI.NSPN ---
History Chief Complaint: back pain Interval History 76-year-old female with T12 fracture. Exam Results Vital Signs Date Time Temp Pulse Resp B/P (MAP) Pulse Ox O2 Delivery O2 Flow Rate FiO2 05/09/17 16:52 18 05/09/17 16:00 97.2 76 122/79 (93) 98 05/05/17 17:14 Room Air Intake and Output 05/09/17 05/09/17 05/10/17 08:00 16:00 00:00 Intake Total 360 ml 1000 ml Output Total 1200 ml Balance 360 ml -200 ml Physical Examination joaquim Dye is alert, conversing well. Following command, currently feeding herself breakfast. Cranial nerve examination: pupils equal. Facial motor symmetrical. Cervical spine decreased range of motion due to age related spondylosis with mild discomfort. Muscle strength: In the lower extremities, strength is 4-5/5 in both iliopsoas, quadriceps, hamstrings, plantar flexion, dorsiflexion, and extensor hallicus longus. Moving her upper extremities well. Sensory examination is intact to light touch in lower extremities Deep tendon reflexes: patellar and Achilles are 1+, bilaterally. Plantar flexors b/l. Senia sign is negative. There is no ankle clonus. Upper extremity cerebellar testing is intact Medical Decision Making Impression and Plan Impression: 1. T12 fracture. Neurologic exam stable Plan: Discussed with patient Continuing to mobilize out of bed with TLSO brace and physical therapy as tolerated. Plan to continue conservative treatment at present. If she does not progress well with conservative treatment and brace, may need to consider surgical intervention depending on medical clearance. Grant Zapata MD May 09, 2017 19:06
[2017-05-09] MEDS: LATANOPROST 0.005% OPHT SOLN 2.5 ML BTL LEFT EYE SCH (21:33)
[2017-05-10] VITALS (7 sets, daily range): BP systolic 91–112; BP diastolic 54–84; PULSE 59–94; RESP 17–18; TEMP 96.1–97.1; O2SAT 95–100
[2017-05-10] MEDS: LEVOTHYROXINE SODIUM 88 MCG TAB PO SCH (05:07)
[2017-05-10] MEDS: METHOCARBAMOL 500 MG TAB PO SCH ×3 (05:07→20:42)
[2017-05-10] MEDS: CIPROFLOXACIN 0.3% RIGHT EYE SCH ×3 (09:15→18:00)
[2017-05-10] MEDS: OPTH RIGHT EYE SCH ×3 (09:15→18:00)
[2017-05-10] MEDS: DORZOLAMIDE/TIMOLOL OPTH SOLN 10 ML BTL LEFT EYE SCH ×2 (09:15→20:42)
[2017-05-10] MEDS: POLYETHYLENE GLYCOL 17 GM PKG PO SCH (09:17)
[2017-05-10] MEDS: HEPARIN SODIUM - SQ 10,000 UNITS/ML VIAL SQ SCH ×2 (09:17→20:52)
[2017-05-10] MEDS: ACETAMINOPHEN/HYDROcodone 325 MG/5 MG TAB PO PRN ×2 (09:17→20:55)
[2017-05-10] MEDS: PRAVASTATIN SOD 80 MG TAB PO SCH (09:17)
[2017-05-10] MEDS: DOXYCYCLINE HYCLATE 100 MG TAB PO SCH ×2 (09:17→20:42)
[2017-05-10] MEDS: FAMOTIDINE 20 MG TAB PO SCH ×2 (09:17→20:43)
[2017-05-10] MEDS: LACTULOSE SYRUP 20 GM/30 ML CUP PO SCH (09:18)
[2017-05-10] MEDS: POTASSIUM CHLORIDE 10 MEQ CONTROLLED RELEASE TAB PO SCH (09:18)
[2017-05-10] MEDS: DOCUSATE SODIUM 50 MG/SENNA 8.6 MG TAB PO SCH ×2 (09:19→20:42)
[2017-05-10] MEDS ORDERED: HYDR-3516 PO (12:12)
[2017-05-10] MEDS ORDERED: SENN1TAB PO (12:12)
--- NOTE | 2017-05-10 12:38 | HHI.PR ---
Subjective Subjective Notes PTD: 6; HD: 5 Pt observed walking with a walker wearing TLSO brace. Pt states. "Im doing OK." Objective Vitals/I&O Vital Signs Date Time Temp Pulse Resp B/P (MAP) Pulse Ox O2 Delivery O2 Flow Rate FiO2 05/10/17 08:00 96.9 67 17 99/59 (72) 100 Labs Laboratory Tests Test 05/06/17 08:45 05/09/17 03:53 Blood Urea Nitrogen 7 MG/DL 6 MG/DL Creatinine 0.53 MG/DL 0.54 MG/DL Random Glucose 70 MG/DL 86 MG/DL Total Protein 5.2 GM/DL Albumin 3.1 GM/DL Calcium Level 7.9 MG/DL 7.6 MG/DL Alkaline Phosphatase 72 U/L Aspartate Amino Transf (AST/SGOT) 37 U/L Alanine Aminotransferase (ALT/SGPT) 33 U/L Total Bilirubin 1.1 MG/DL Sodium Level 132 MEQ/L 134 MEQ/L Potassium Level 3.6 MEQ/L 3.8 MEQ/L Chloride Level 99 MEQ/L 101 MEQ/L Carbon Dioxide Level 24.0 MEQ/L 25.8 MEQ/L White Blood Count 6.4 TH/MM3 Red Blood Count 3.15 MIL/MM3 Hemoglobin 10.3 GM/DL Hematocrit 30.7 % Mean Corpuscular Volume 97.5 FL Mean Corpuscular Hemoglobin 32.8 PG Mean Corpuscular Hemoglobin Concent 33.6 % Red Cell Distribution Width 17.2 % Platelet Count 163 TH/MM3 Mean Platelet Volume 8.0 FL Neutrophils (%) (Auto) 63.7 % Lymphocytes (%) (Auto) 18.7 % Monocytes (%) (Auto) 15.6 % Eosinophils (%) (Auto) 1.3 % Basophils (%) (Auto) 0.7 % Neutrophils # (Auto) 4.1 TH/MM3 Lymphocytes # (Auto) 1.2 TH/MM3 Monocytes # (Auto) 1.0 TH/MM3 Eosinophils # (Auto) 0.1 TH/MM3 Basophils # (Auto) 0.0 TH/MM3 CBC Comment DIFF FINAL Differential Comment Anion Gap 7 MEQ/L Estimat Glomerular Filtration Rate 109 ML/MIN Narrative Exam GENERAL: This is a 76 year old female walking with a walker with TLSO brace on. SKIN: Warm and dry. HEAD: Atraumatic. Normocephalic. EYES: PERRLA ENT: No nasal bleeding or discharge. Mucous membranes pink and moist. NECK: Trachea midline. No JVD. CARDIOVASCULAR: Regular rate and rhythm. RESPIRATORY: No accessory muscle use. Lungs are clear to auscultation. Breath sounds equal bilaterally. No distress or dyspnea. GASTROINTESTINAL: BS + x 4 quads. Abdomen soft, non-tender, nondistended. MUSCULOSKELETAL: Extremities without cyanosis, or edema. Bilateral lower extremity discoloration. + peripheral pulses x 4 extremities. Warm with good capillary refill and sensation. MAEW. NEUROLOGICAL: A&O x 3. Normal speech and pattern. A/P Problem List: (1) Postoperative anemia ICD Codes: D64.9 - Postoperative anemia Status: Acute (2) Hip fracture, right ICD Codes: S72.001A - Hip fracture, right Status: Acute (3) Carotid stenosis ICD Codes: I65.29 - Occlusion and stenosis of unspecified carotid artery (4) Pubic ramus fracture ICD Codes: S32.599A - Other specified fracture of unspecified pubis, initial encounter for closed fracture Status: Acute (5) Compression fracture of T12 vertebra ICD Codes: S22.080A - Wedge compression fracture of T11-T12 vertebra, initial encounter for closed fracture Status: Acute Assessment and Plan [place]: This is a 76 year old female who sustained a mechanical fall. She bumped into a piece of furniture that threw her off balance causing her to fall. She landed on her hip and struck her head. No LOC. She was able to ambulate after the fall but continued to have pain so came to the ED. Takes Plavix and ASA at home. INJURIES: T12 compression fx LEFT superior and inferior pubic rami fxs (non-op) PMHx: Carotid stenosis. PVD, HLD, glaucoma, hypothyroidism, CAD, RA Procedures: Consults: Neurosurgery. Orthopedics. Hospitalist. Cardiology. Case management. Diet: Regular diet. Tolerating po diet. Encourage good po intake with each meal. Pulmonary: Encourage good pulmonary toileting. IS at bedside and pt encouraged to use. Rationale for use explained to patient, and verbalized understanding. PAIN Management: [place] 5 mg q 4h. Morphine 2mg q 4, Robaxin 500 mg q 8h. Activity: OOB with TLSO brace. PT and OT ordered. (TLSO brace, PWB LLE) patient observed ambulating with walker with TLSO brace on. GI prophylaxis: Pepcid BID. Bowel regimen: Twila-colace BID. Miralax. Lactulose. LBM: 05/09. DVT prophylaxis: Mechanical VTE with SCDs. Chemical management with Heparin 5000 units BID. DC Planning: Case management consulted for assistance with final discharge disposition. Patient has been ambulating well. Therefore, the patient can be discharged to SNF. Emotional support provided to patient and family at bedside and plan of care discussed. Discussed with RN at bedside. Patient is hemodynamically stable and being managed on the med/surg floor. The trauma team will round each day, and evaluate plan of care on a daily basis. T12 compression fx Neurosurgery consulted and assisting in management and care Nonsurgical management at this time TLSO brace when OOB NS plans to see how patient does OOB with just TLSO brace before decision re: sx is made Patient has been OOB well using TLSO brace. Cardiology consulted for surgical clearance - cleared for surgery if warranted PT ordered SQ Heparin for DVT prophylaxis LEFT superior and inferior pubic rami fxs Orthopedics consulted and assisting in management and care. Nonoperative management Pain control PWB LLE PT ordered Problem Qualifiers (1) Carotid stenosis: Qualified Codes: I65.23 - Occlusion and stenosis of bilateral carotid arteries (2) Pubic ramus fracture: Qualified Codes: S32.592A - Other specified fracture of left pubis, initial encounter for closed fracture Amelie Morrison May 10, 2017 12:38
--- NOTE | 2017-05-10 14:46 | HHI.NSPN ---
(Katherine Olson) Note Status Status: Progress Note (Katherine Olson) Interval History Interval History Mrs. Dye is a 76 y/o female with history of HTN, hyperlipidemia, hypothyroidism, and glaucoma. She was brought to [facility] ED after she had fallen at home on the evening of 05/04/17. She typically uses a walker to ambulate at home but on the evening of 05/04 she did not use one and tripped into furniture that threw off her balance and she fell onto her left hip and hit her head. Her grandson and [id number] live with her and helped her up. Since her fall she reported severe pain in her lower back and coccyx, which has been constant. She denies any associated numbness or weakness. She is on Plavix and aspirin which she reports she has been using it for 2 years for PAD in her LE. Imaging studies revealed a compression deformity of T12 vertebral body, with retropulsion of the posterior aspect of the T12 vertebral body by approximately 7 mm causing a moderate impression on the thecal sac. In addition she had left pubic rami fractures. He was transferred to [facility] for Neurosurgery and Orthopedic consultation 05/07: reports pain is better controlled today, appearing more comfortable, feeding herself breakfast. no acute changes. 05/10: sitting in chair with TLSO, reports back pain is better, c/o brace is riding to high and hitting her chin. denies new lower extremity symptom (Katherine Olson) Labs, Micro, & Vital Signs Results Date Time Temp Pulse Resp B/P (MAP) Pulse Ox O2 Delivery O2 Flow Rate FiO2 05/10/17 12:00 96.7 69 17 96/58 (71) 98 05/10/17 08:00 96.9 67 17 99/59 (72) 100 05/10/17 04:00 97.1 59 18 106/59 (75) 97 05/10/17 00:00 96.1 67 18 91/54 (66) 97 05/09/17 20:00 96.2 79 18 104/69 (81) 93 05/09/17 19:29 79 05/09/17 16:52 18 05/09/17 16:00 97.2 76 19 122/79 (93) 98 Constitutional Vital Signs Date Time Temp Pulse Resp B/P (MAP) Pulse Ox O2 Delivery O2 Flow Rate FiO2 05/10/17 12:00 96.7 69 17 96/58 (71) 98 05/10/17 08:00 96.9 67 17 99/59 (72) 100 05/10/17 04:00 97.1 59 18 106/59 (75) 97 05/10/17 00:00 96.1 67 18 91/54 (66) 97 05/09/17 20:00 96.2 79 18 104/69 (81) 93 05/09/17 19:29 79 05/09/17 16:52 18 05/09/17 16:00 97.2 76 19 122/79 (93) 98 (Katherine Olson) Physical Exam Ms. Dye is alert, oriented. Sitting up in chair with custom TLSO. Appears comfortable, in no acute distress. Cranial nerve examination: pupils equal. Facial motor symmetrical. Muscle strength: In the lower extremities, strength is 4-5/5 in both iliopsoas, quadriceps, hamstrings, plantar flexion, dorsiflexion, and extensor hallicus longus. Moving her upper extremities well. Sensory examination is intact to light touch in lower extremities Deep tendon reflexes: patellar and Achilles are 1+, bilaterally. Plantar flexors b/l. Senia sign is negative. There is no ankle clonus. Cerebellar: intact finger to nose (Katherine Olson) Ms. Dye is alert, oriented. Sitting up in chair with custom TLSO. Appears comfortable, in no acute distress. Cranial nerve examination: pupils equal. Facial motor symmetrical. Muscle strength: In the lower extremities, strength is 4-5/5 in both iliopsoas, quadriceps, hamstrings, plantar flexion, dorsiflexion, and extensor hallicus longus. Moving her upper extremities well. Sensory examination is intact to light touch in lower extremities Deep tendon reflexes: patellar and Achilles are 1+, bilaterally. Plantar flexors b/l. Senia sign is negative. There is no ankle clonus. Cerebellar: intact (Judah Palm MD) Medications Current Medications Current Medications Medications (Trade) Dose Ordered Sig/Ann Route PRN Reason Start Time Stop Time Status Last Admin Dose Admin Sodium Chloride (NS Flush) 2 ml UNSCH PRN IV FLUSH FLUSH AFTER USING IV ACCESS 05/05/17 17:00 05/06/17 21:18 Morphine Sulfate (Morphine Inj) 2 mg Q4HR PRN IV PUSH BREAKTHROUGH PAIN 05/05/17 17:00 05/06/17 21:17 Acetaminophen/ Hydrocodone Bitart ([place] 5-325 Mg) 1 tab Q4H PRN PO PAIN 3-10 05/05/17 17:00 05/10/17 09:17 Acetaminophen (Tylenol) 650 mg Q6H PRN PO TEMPERATURE > 102 F 05/05/17 17:00 Enalaprilat (Vasotec Inj) 1.25 mg Q8H PRN IV PUSH SBP>180, DBP>95 05/05/17 17:00 Ondansetron HCl (Zofran Inj) 4 mg Q6H PRN IV PUSH NAUSEA OR VOMITING 05/05/17 17:00 Dorzolamide/ Timolol (Cosopt 2-0.5% Opth Soln) 1 drop BID LEFT EYE 05/05/17 21:00 05/10/17 09:15 Latanoprost (Xalatan 0.005% Opth Soln) 1 drop HS LEFT EYE 05/05/17 21:00 05/09/17 21:33 Levothyroxine Sodium (Synthroid) 88 mcg DAILY@0600 PO 05/06/17 06:00 05/10/17 05:07 Potassium Chloride (KCl) 10 meq DAILY PO 05/06/17 09:00 05/10/17 09:18 Pravastatin Sodium (Pravachol) 80 mg DAILY PO 05/06/17 09:00 05/10/17 09:17 Methocarbamol (Robaxin) 500 mg Q8HR PO 05/06/17 10:45 05/10/17 09:19 Heparin Sodium (Porcine) (Heparin Inj) 5,000 units Q12HR SQ 05/06/17 21:00 05/10/17 09:17 Famotidine (Pepcid) 20 mg BID PO 05/07/17 09:00 05/10/17 09:17 Polyethylene Glycol (Miralax) 17 gm DAILY PO 05/06/17 12:00 05/10/17 09:17 Patient Own Medication Cyclosporine Opth 0.05% (Resta... BID LEFT EYE 05/06/17 21:00 Future Hold Doxycycline Hyclate (Vibratab) 50 mg BID PO 05/06/17 21:00 05/10/17 09:17 Miscellaneous (Pill Splitter) 1 ea UNSCH PRN OTHER SEE LABEL COMMENTS 05/06/17 12:45 05/07/17 08:50 Non-Formulary Medication 1 ea TID RIGHT EYE 05/06/17 18:00 05/10/17 13:00 Lactulose (Lactulose Liq) 30 ml DAILY PO 05/08/17 09:00 05/10/17 09:18 Senna/Docusate Sodium (Twila-Colace) 2 tab BID PO 05/08/17 09:00 05/10/17 09:19 (Katherine Olson) Current Medications Current Medications Acetaminophen (Tylenol) 650 mg ONCE ONCE PO Last administered on 05/05/17 14: 39; Start 05/05/17 at 14:45; Stop 05/05/17 at 14:46; Status DC Iohexol (Omnipaque 350 Inj) 85 ml STK-MED ONCE IVCONTRAST Last administered on 05/05/17 15:30; Start 05/05/17 at 15:30; Stop 05/05/17 at 15:33; Status DC Morphine Sulfate (Morphine Inj) 2 mg ONCE ONCE IV PUSH ; Start 05/05/17 at 16: 00; Stop 05/05/17 at 16:00; Status DC Morphine Sulfate (Morphine Inj) 1 mg ONCE ONCE IV PUSH Last administered on 16:11; Start 05/05/17 at 16:00; Stop 05/05/17 at 16:01; Status DC Sodium Chloride (NS Flush) 2 ml UNSCH PRN IV FLUSH FLUSH AFTER USING IV ACCESS Last administered on 05/06/17 21:18; Start 05/05/17 at 17:00; Stop 05/11/17 at 19:00; Status DC Morphine Sulfate (Morphine Inj) 2 mg Q4HR PRN IV PUSH BREAKTHROUGH PAIN Last administered on 05/06/17 21:17; Start 05/05/17 at 17:00; Stop 05/11/17 at 19: 00; Status DC Acetaminophen/ Hydrocodone Bitart ([place] 5-325 Mg) 1 tab Q4H PRN PO PAIN 3-10 Last administered on 05/11/17 12:48; Start 05/05/17 at 17:00; Stop 05/11/17 at 19:00; Status DC Acetaminophen (Tylenol) 650 mg Q6H PRN PO TEMPERATURE > 102 F; Start 05/05/17 at 17:00; Stop 05/11/17 at 19:00; Status DC Enalaprilat (Vasotec Inj) 1.25 mg Q8H PRN IV PUSH SBP>180, DBP>95; Start at 17:00; Stop 05/11/17 at 19:00; Status DC Ondansetron HCl (Zofran Inj) 4 mg Q6H PRN IV PUSH NAUSEA OR VOMITING; Start at 17:00; Stop 05/11/17 at 19:00; Status DC Pantoprazole Sodium (Protonix Inj) 40 mg Q24H IVP Last administered on 22:37; Start 05/05/17 at 18:00; Stop 05/06/17 at 10:44; Status DC Sodium Chloride 1,000 ml @ 75 mls/hr [id number] IV Last administered on 10:18; Start 05/05/17 at 17:15; Stop 05/06/17 at 10:44; Status DC Dorzolamide/ Timolol (Cosopt 2-0.5% Opth Soln) 1 drop BID LEFT EYE Last administered on 05/11/17 08:37; Start 05/05/17 at 21:00; Stop 05/11/17 at 19: 00; Status DC Latanoprost (Xalatan 0.005% Opth Soln) 1 drop HS LEFT EYE Last administered on 05/10/17 20:42; Start 05/05/17 at 21:00; Stop 05/11/17 at 19:00; Status DC Levothyroxine Sodium (Synthroid) 88 mcg DAILY@0600 PO Last administered on 04:55; Start 05/06/17 at 06:00; Stop 05/11/17 at 19:00; Status DC Potassium Chloride (KCl) 10 meq DAILY PO Last administered on 05/11/17 08:33 ; Start 05/06/17 at 09:00; Stop 05/11/17 at 19:00; Status DC Pravastatin Sodium (Pravachol) 80 mg DAILY PO Last administered on 05/11/17 08:33; Start 05/06/17 at 09:00; Stop 05/11/17 at 19:00; Status DC Methocarbamol (Robaxin) 500 mg Q8HR PO Last administered on 05/11/17 12:47; Start 05/06/17 at 10:45; Stop 05/11/17 at 19:00; Status DC Heparin Sodium (Porcine) (Heparin Inj) 5,000 units Q12HR SQ Last administered on 05/11/17 08:33; Start 05/06/17 at 21:00; Stop 05/11/17 at 19:00; Status DC Famotidine (Pepcid) 20 mg BID PO Last administered on 05/11/17 08:32; Start 05/07/17 at 09:00; Stop 05/11/17 at 19:00; Status DC Polyethylene Glycol (Miralax) 17 gm DAILY PO Last administered on 05/11/17 08 :33; Start 05/06/17 at 12:00; Stop 05/11/17 at 19:00; Status DC Lactulose (Lactulose Liq) 30 ml DAILY PRN PO constipation; Start 05/06/17 at 12 :00; Stop 05/08/17 at 07:49; Status DC Docusate Sodium (Colace) 100 mg BID PO Last administered on 05/07/17 08:50; Start 05/06/17 at 12:00; Stop 05/08/17 at 07:49; Status DC Ciprofloxacin HCl (Ciloxan 0.3% Opth Soln) 1 drop TID RIGHT EYE ; Start at 13:00; Stop 05/06/17 at 15:59; Status DC Patient Own Medication Cyclosporine Opth 0.05% (Resta... BID LEFT EYE ; Start 05/06/17 at 21:00; Stop 05/11/17 at 19:00; Status DC Doxycycline Hyclate (Vibratab) 50 mg BID PO Last administered on 05/11/17 08: 34; Start 05/06/17 at 21:00; Stop 05/11/17 at 19:00; Status DC Quetiapine Fumarate (SEROquel) 25 mg ONCE ONCE PO ; Start 05/06/17 at 12:30; Stop 05/06/17 at 12:32; Status DC Miscellaneous (Pill Splitter) 1 ea UNSCH PRN OTHER SEE LABEL COMMENTS Last administered on 05/11/17 08:35; Start 05/06/17 at 12:45; Stop 05/11/17 at 19: 00; Status DC Non-Formulary Medication 1 ea TID RIGHT EYE Last administered on 05/11/17 12: 48; Start 05/06/17 at 18:00; Stop 05/11/17 at 19:00; Status DC Lactulose (Lactulose Liq) 30 ml DAILY PO Last administered on 05/11/17 08:32 ; Start 05/08/17 at 09:00; Stop 05/11/17 at 19:00; Status DC Senna/Docusate Sodium (Twila-Colace) 2 tab BID PO Last administered on 08:32; Start 05/08/17 at 09:00; Stop 05/11/17 at 19:00; Status DC (Judah Palm MD) Medical Decision Making MDM Remarks 76 y/o female s/p trip and fall 05/04 developed intractable lower thoracolumbar pain T12 burst fracture, Cardiology cleared for surgery- however clinically pain is improving- no evidence of myelopathy (Katherine Olson) MDM Remarks Last 48 hours Impressions Lumbar Spine X-Ray 05/11/17 0000 Signed Impressions: Service Date/Time: Thursday, May 11, 2017 15:19 - CONCLUSION: 1. Intact lumbar vertebral bodies. 2. Severe compression deformity of T12 and moderate compression deformity of T10 Edwin Rojas MD (Judah Palm MD) Plan Plan Remarks Dr. Palm discussed with patient again regarding surgical vs nonsurgical management, today her pain is improving compared to admission will cont nonsurgical management for now with TLSO, orthotech to reevaluate brace will follow (Katherine Olson) Attending Statement The exam, history, and the medical decision-making described in the above note were completed with the assistance of the mid-level provider. I reviewed and agree with the findings presented. I attest that I had a [id number] encounter with the patient on the same day, and personally performed and documented my assessment and findings in the medical record. (Judah Palm MD) Katherine Olson May 10, 2017 14:46 Judah Palm MD May 12, 2017 12:59
[2017-05-10] MEDS: LATANOPROST 0.005% OPHT SOLN 2.5 ML BTL LEFT EYE SCH (20:42)
[2017-05-11] VITALS: BP 94/58; PULSE 69; RESP 18; TEMP 96.3; O2SAT 99
[2017-05-11 04:00] VITALS: BP 104/62; PULSE 67; RESP 18; TEMP 96.7; O2SAT 98
[2017-05-11] MEDS: LEVOTHYROXINE SODIUM 88 MCG TAB PO SCH (04:55)
[2017-05-11] MEDS: METHOCARBAMOL 500 MG TAB PO SCH ×2 (04:55→12:47)
[2017-05-11] MEDS: ACETAMINOPHEN/HYDROcodone 325 MG/5 MG TAB PO PRN ×2 (04:56→12:48)
[2017-05-11 08:00] VITALS: BP 88/60; PULSE 67; RESP 15; TEMP 96.9; O2SAT 100
[2017-05-11] MEDS: DOCUSATE SODIUM 50 MG/SENNA 8.6 MG TAB PO SCH (08:32)
[2017-05-11] MEDS: FAMOTIDINE 20 MG TAB PO SCH (08:32)
[2017-05-11] MEDS: LACTULOSE SYRUP 20 GM/30 ML CUP PO SCH (08:32)
[2017-05-11] MEDS: PRAVASTATIN SOD 80 MG TAB PO SCH (08:33)
[2017-05-11] MEDS: POTASSIUM CHLORIDE 10 MEQ CONTROLLED RELEASE TAB PO SCH (08:33)
[2017-05-11] MEDS: HEPARIN SODIUM - SQ 10,000 UNITS/ML VIAL SQ SCH (08:33)
[2017-05-11] MEDS: POLYETHYLENE GLYCOL 17 GM PKG PO SCH (08:33)
[2017-05-11] MEDS: DOXYCYCLINE HYCLATE 100 MG TAB PO SCH (08:34)
[2017-05-11] MEDS: PILL SPLITTER OTHER PRN (08:35)
[2017-05-11] MEDS: OPTH RIGHT EYE SCH ×3 (08:36→18:00)
[2017-05-11] MEDS: CIPROFLOXACIN 0.3% RIGHT EYE SCH ×3 (08:36→18:00)
[2017-05-11] MEDS: DORZOLAMIDE/TIMOLOL OPTH SOLN 10 ML BTL LEFT EYE SCH (08:37)
[2017-05-11 12:00] VITALS: BP 91/67; PULSE 69; RESP 16; TEMP 97.4; O2SAT 95
--- NOTE | 2017-05-11 12:58 | HHI.PR ---
Subjective Subjective Notes PTD: 7; HD: 6 Patient lying in bed. No distress noted. Discussed plan for discharge to rehabilitation/SNF. Objective Vitals/I&O Vital Signs Date Time Temp Pulse Resp B/P (MAP) Pulse Ox O2 Delivery O2 Flow Rate FiO2 05/11/17 12:00 97.4 69 16 91/67 (75) 95 Labs Laboratory Tests Test 05/06/17 08:45 05/09/17 03:53 Blood Urea Nitrogen 7 MG/DL 6 MG/DL Creatinine 0.53 MG/DL 0.54 MG/DL Random Glucose 70 MG/DL 86 MG/DL Total Protein 5.2 GM/DL Albumin 3.1 GM/DL Calcium Level 7.9 MG/DL 7.6 MG/DL Alkaline Phosphatase 72 U/L Aspartate Amino Transf (AST/SGOT) 37 U/L Alanine Aminotransferase (ALT/SGPT) 33 U/L Total Bilirubin 1.1 MG/DL Sodium Level 132 MEQ/L 134 MEQ/L Potassium Level 3.6 MEQ/L 3.8 MEQ/L Chloride Level 99 MEQ/L 101 MEQ/L Carbon Dioxide Level 24.0 MEQ/L 25.8 MEQ/L White Blood Count 6.4 TH/MM3 Red Blood Count 3.15 MIL/MM3 Hemoglobin 10.3 GM/DL Hematocrit 30.7 % Mean Corpuscular Volume 97.5 FL Mean Corpuscular Hemoglobin 32.8 PG Mean Corpuscular Hemoglobin Concent 33.6 % Red Cell Distribution Width 17.2 % Platelet Count 163 TH/MM3 Mean Platelet Volume 8.0 FL Neutrophils (%) (Auto) 63.7 % Lymphocytes (%) (Auto) 18.7 % Monocytes (%) (Auto) 15.6 % Eosinophils (%) (Auto) 1.3 % Basophils (%) (Auto) 0.7 % Neutrophils # (Auto) 4.1 TH/MM3 Lymphocytes # (Auto) 1.2 TH/MM3 Monocytes # (Auto) 1.0 TH/MM3 Eosinophils # (Auto) 0.1 TH/MM3 Basophils # (Auto) 0.0 TH/MM3 CBC Comment DIFF FINAL Differential Comment Anion Gap 7 MEQ/L Estimat Glomerular Filtration Rate 109 ML/MIN Narrative Exam GENERAL: This is a 76 year old female in bed. No distress noted. SKIN: Warm and dry. HEAD: Atraumatic. Normocephalic. EYES: PERRLA ENT: No nasal bleeding or discharge. Mucous membranes pink and moist. NECK: Trachea midline. No JVD. CARDIOVASCULAR: Regular rate and rhythm. RESPIRATORY: No accessory muscle use. Lungs are clear to auscultation. Breath sounds equal bilaterally. No distress or dyspnea. GASTROINTESTINAL: BS + x 4 quads. Abdomen soft, non-tender, nondistended. MUSCULOSKELETAL: Extremities without cyanosis, or edema. Bilateral lower extremity discoloration. + peripheral pulses x 4 extremities. Warm with good capillary refill and sensation. MAEW. NEUROLOGICAL: A&O x 3. Normal speech and pattern. A/P Problem List: (1) Postoperative anemia ICD Codes: D64.9 - Postoperative anemia Status: Acute (2) Hip fracture, right ICD Codes: S72.001A - Hip fracture, right Status: Acute (3) Carotid stenosis ICD Codes: I65.29 - Occlusion and stenosis of unspecified carotid artery (4) Pubic ramus fracture ICD Codes: S32.599A - Other specified fracture of unspecified pubis, initial encounter for closed fracture Status: Acute (5) Compression fracture of T12 vertebra ICD Codes: S22.080A - Wedge compression fracture of T11-T12 vertebra, initial encounter for closed fracture Status: Acute Assessment and Plan [place]: This is a 76 year old female who sustained a mechanical fall. She bumped into a piece of furniture that threw her off balance causing her to fall. She landed on her hip and struck her head. No LOC. She was able to ambulate after the fall but continued to have pain so came to the ED. Takes Plavix and ASA at home. INJURIES: T12 compression fx LEFT superior and inferior pubic rami fxs (non-op) PMHx: Carotid stenosis. PVD, HLD, glaucoma, hypothyroidism, CAD, RA Procedures: Consults: Neurosurgery. Orthopedics. Hospitalist. Cardiology. Case management. Diet: Regular diet. Tolerating po diet. Encourage good po intake with each meal. Pulmonary: Encourage good pulmonary toileting. IS at bedside and pt encouraged to use. Rationale for use explained to patient, and verbalized understanding. PAIN Management: [place] 5 mg q 4h. Morphine 2mg q 4, Robaxin 500 mg q 8h. Activity: OOB with TLSO brace. PT and OT ordered. (TLSO brace, PWB LLE) . GI prophylaxis: Pepcid BID. Bowel regimen: Twila-colace BID. Miralax. Lactulose. LBM: 05/11. DVT prophylaxis: Mechanical VTE with SCDs. Chemical management with Heparin 5000 units BID. DC Planning: Case management consulted for assistance with final discharge disposition. Patient has been ambulating well. Therefore, patient can be safely discharged to a SNF from a trauma surgery standpoint as soon as a bed is available. Emotional support provided to patient and family at bedside and plan of care discussed. Discussed with RN at bedside. Patient is hemodynamically stable and being managed on the med/surg floor. The trauma team will round each day, and evaluate plan of care on a daily basis. T12 compression fx Neurosurgery consulted and assisting in management and care Nonsurgical management at this time TLSO brace when OOB NS plans to see how patient does OOB with just TLSO brace before decision re: sx is made Patient has been OOB well using TLSO brace. Cardiology consulted for surgical clearance - cleared for surgery if warranted PT ordered SQ Heparin for DVT prophylaxis LEFT superior and inferior pubic rami fxs Orthopedics consulted and assisting in management and care. Nonoperative management Pain control PWB LLE PT ordered Problem Qualifiers (1) Carotid stenosis: Qualified Codes: I65.23 - Occlusion and stenosis of bilateral carotid arteries (2) Pubic ramus fracture: Qualified Codes: S32.592A - Other specified fracture of left pubis, initial encounter for closed fracture Amelie Morrison May 11, 2017 12:57
--- NOTE | 2017-05-11 14:35 | HHI.NSPN ---
(Katherine Olson) Note Status Status: Progress Note (Katherine Olson) Interval History Interval History Mrs. Dye is a 76 y/o female with history of HTN, hyperlipidemia, hypothyroidism, and glaucoma. She was brought to [place] ED after she had fallen at home on the evening of 05/04/17. She typically uses a walker to ambulate at home but on the evening of 05/04 she did not use one and tripped into furniture that threw off her balance and she fell onto her left hip and hit her head. Her grandson and [id number] live with her and helped her up. Since her fall she reported severe pain in her lower back and coccyx, which has been constant. She denies any associated numbness or weakness. She is on Plavix and aspirin which she reports she has been using it for 2 years for PAD in her LE. Imaging studies revealed a compression deformity of T12 vertebral body, with retropulsion of the posterior aspect of the T12 vertebral body by approximately 7 mm causing a moderate impression on the thecal sac. In addition she had left pubic rami fractures. He was transferred to [facility] [place] for Neurosurgery and Orthopedic consultation 05/07: reports pain is better controlled today, appearing more comfortable, feeding herself breakfast. no acute changes. 05/10: sitting in chair with TLSO, reports back pain is better, c/o brace is riding to high and hitting her chin. denies new lower extremity symptom 05/11: PT at bedside, her TLSO was readjusted, fitting more comfortably. Pt eager to mobilize, reports pain is improving, stable. (Katherine lOson) Labs, Micro, & Vital Signs Results Date Time Temp Pulse Resp B/P (MAP) Pulse Ox O2 Delivery O2 Flow Rate FiO2 05/11/17 12:00 97.4 69 16 91/67 (75) 95 05/11/17 08:00 96.9 67 15 88/60 (69) 100 05/11/17 04:00 96.7 67 18 104/62 (76) 98 05/11/17 00:00 96.3 69 18 94/58 (70) 99 05/10/17 23:00 81 05/10/17 20:00 97.0 94 18 112/84 (93) 95 05/10/17 16:00 96.2 75 17 110/61 (77) 96 Constitutional Vital Signs Date Time Temp Pulse Resp B/P (MAP) Pulse Ox O2 Delivery O2 Flow Rate FiO2 05/11/17 12:00 97.4 69 16 91/67 (75) 95 05/11/17 08:00 96.9 67 15 88/60 (69) 100 05/11/17 04:00 96.7 67 18 104/62 (76) 98 05/11/17 00:00 96.3 69 18 94/58 (70) 99 05/10/17 23:00 81 05/10/17 20:00 97.0 94 18 112/84 (93) 95 05/10/17 16:00 96.2 75 17 110/61 (77) 96 (Katherine Olson) Review of Systems Constitutional: DENIES: Fever, Chills Respiratory: DENIES: Hemoptysis Cardiovascular: DENIES: Chest pain Musculoskeletal: COMPLAINS OF: Back pain (improving) (Katherine Olson) Physical Exam Ms. Dye is alert, comfortable in bed. PT at bedside to mobilize patient. Cranial nerve examination: pupils 3mm equal. Facial motor symmetrical. Muscle strength: In the lower extremities, strength is 4-5/5 in both iliopsoas, quadriceps, hamstrings, plantar flexion, dorsiflexion, and extensor hallicus longus. Moving her upper extremities well. Sensory examination is intact to light touch in lower extremities Deep tendon reflexes: patellar and Achilles are 1+, bilaterally. Plantar flexors b/l. Senia sign is negative. There is no ankle clonus. Cerebellar: intact finger to nose (Katherine Olson) Ms. Dye is alert, comfortable in bed. PT at bedside to mobilize patient. Cranial nerve examination: pupils 3mm equal. Facial motor symmetrical. Muscle strength: In the lower extremities, strength is 4-5/5 in both iliopsoas, quadriceps, hamstrings, plantar flexion, dorsiflexion, and extensor hallicus longus. Moving her upper extremities well. Sensory examination is intact to light touch in lower extremities Deep tendon reflexes: patellar and Achilles are 1+, bilaterally. Plantar flexors b/l. Senia sign is negative. There is no ankle clonus. Cerebellar: intact finger to nose (Judah Palm MD) Medications Current Medications Current Medications Medications (Trade) Dose Ordered Sig/Ann Route PRN Reason Start Time Stop Time Status Last Admin Dose Admin Sodium Chloride (NS Flush) 2 ml UNSCH PRN IV FLUSH FLUSH AFTER USING IV ACCESS 05/05/17 17:00 05/06/17 21:18 Morphine Sulfate (Morphine Inj) 2 mg Q4HR PRN IV PUSH BREAKTHROUGH PAIN 05/05/17 17:00 05/06/17 21:17 Acetaminophen/ Hydrocodone Bitart ([place] 5-325 Mg) 1 tab Q4H PRN PO PAIN 3-10 05/05/17 17:00 05/11/17 12:48 Acetaminophen (Tylenol) 650 mg Q6H PRN PO TEMPERATURE > 102 F 05/05/17 17:00 Enalaprilat (Vasotec Inj) 1.25 mg Q8H PRN IV PUSH SBP>180, DBP>95 05/05/17 17:00 Ondansetron HCl (Zofran Inj) 4 mg Q6H PRN IV PUSH NAUSEA OR VOMITING 05/05/17 17:00 Dorzolamide/ Timolol (Cosopt 2-0.5% Opth Soln) 1 drop BID LEFT EYE 05/05/17 21:00 05/11/17 08:37 Latanoprost (Xalatan 0.005% Opth Soln) 1 drop HS LEFT EYE 05/05/17 21:00 05/10/17 20:42 Levothyroxine Sodium (Synthroid) 88 mcg DAILY@0600 PO 05/06/17 06:00 05/11/17 04:55 Potassium Chloride (KCl) 10 meq DAILY PO 05/06/17 09:00 05/11/17 08:33 Pravastatin Sodium (Pravachol) 80 mg DAILY PO 05/06/17 09:00 05/11/17 08:33 Methocarbamol (Robaxin) 500 mg Q8HR PO 05/06/17 10:45 05/11/17 12:47 Heparin Sodium (Porcine) (Heparin Inj) 5,000 units Q12HR SQ 05/06/17 21:00 05/11/17 08:33 Famotidine (Pepcid) 20 mg BID PO 05/07/17 09:00 05/11/17 08:32 Polyethylene Glycol (Miralax) 17 gm DAILY PO 05/06/17 12:00 05/11/17 08:33 Patient Own Medication Cyclosporine Opth 0.05% (Resta... BID LEFT EYE 05/06/17 21:00 Future Hold Doxycycline Hyclate (Vibratab) 50 mg BID PO 05/06/17 21:00 05/11/17 08:34 Miscellaneous (Pill Splitter) 1 ea UNSCH PRN OTHER SEE LABEL COMMENTS 05/06/17 12:45 05/11/17 08:35 Non-Formulary Medication 1 ea TID RIGHT EYE 05/06/17 18:00 05/11/17 12:48 Lactulose (Lactulose Liq) 30 ml DAILY PO 05/08/17 09:00 05/11/17 08:32 Senna/Docusate Sodium (Twila-Colace) 2 tab BID PO 05/08/17 09:00 05/11/17 08:32 (Katherine Olson) Medical Decision Making MDM Remarks 76 y/o female s/p trip and fall 05/04 developed intractable lower thoracolumbar pain T12 burst fracture, Cardiology cleared for surgery- however clinically pain is improving- no evidence of myelopathy (Katherine Olson) Plan Plan Remarks cont nonsurgical management for now with TLSO, standing upright xrays today, if standing xrays stable clear to dc to rehab and f/u in office in 3 weeks with f/u thoracic xrays cont supportive care prn cont therapy, TLSO when out of bed Addendum: Dr. Palm reviewed upright xrays, stable findings, clear to dc to rehab from NRS standpoint (Katherine Olson) Attending Statement As above Continue neuro checks. Thoracic fracture. She requests to continue nonoperative treatment with TLSO brace Pulmonary.. Continue aggressive pulmonary toilette, nasotracheal suction, and breathing treatments with nebulizers. Nutrition. NPO Renal. monitor closely urine output, BUN and creatinine Endocrine. Monitor serial Acu checks and SSI as needed in detail ID monitor for signs of infection Protonix for stress ulcer prophylaxis Antwon hose and SCD's for DVT prophylaxis. The exam, history, and the medical decision-making described in the above note were completed with the assistance of the mid-level provider. I reviewed and agree with the findings presented. I attest that I had a [id number] encounter with the patient on the same day, and personally performed and documented my assessment and findings in the medical record. (Judah Palm MD) Kathernie Olson May 11, 2017 14:35 Judah Palm MD May 12, 2017 13:11
--- NOTE | 2017-05-11 16:09 | RADRPT ---
EXAM DATE/TIME: 05/11/2017 15:19 [facility] COMPARISON: MRI THORACIC SPINE W/O CONTRAST, May 05, 2017, 19:36. INDICATIONS : evaluate fracture t-12 MEDICAL HISTORY : Cardiovascular disease. SURGICAL HISTORY : Thyroidectomy ENCOUNTER: Subsequent ACUITY: 4 - 6 days PAIN SCORE: 6/10 LOCATION: Lower back FINDINGS: A single lateral view of the lumbar spine was performed. Lumbar vertebral bodies are intact without e vidence of acute compression fracture. Severe compression deformity of T12 is noted. There is moderat e compression deformity of T10. Both of these were identified on previous MRI. There is no evidence o f significant listhesis. CONCLUSION: 1. Intact lumbar vertebral bodies. 2. Severe compression deformity of T12 and moderate compression deformity of T10 Edwin Rojas MD on May 11, 2017 at 16:05 Board Certified Radiologist. This report was verified electronically.
--- NOTE | 2017-05-12 07:53 | HHI.DS ---
Discharge Summary Admission Date May 05, 2017 at 15:30 Discharge Date: May 12, 2017 Admitting Diagnosis compression fracture, pelvic fracture (1) Postoperative anemia ICD Codes: D64.9 - Postoperative anemia Diagnosis: Principal Status: Acute (2) Hip fracture, right ICD Codes: S72.001A - Hip fracture, right Diagnosis: Principal Status: Acute (3) Carotid stenosis ICD Codes: I65.29 - Occlusion and stenosis of unspecified carotid artery Diagnosis: Principal (4) Pubic ramus fracture ICD Codes: S32.599A - Other specified fracture of unspecified pubis, initial encounter for closed fracture Diagnosis: Principal Status: Acute (5) Compression fracture of T12 vertebra ICD Codes: S22.080A - Wedge compression fracture of T11-T12 vertebra, initial encounter for closed fracture Diagnosis: Principal Status: Acute Brief History Fall CBC/BMP: 05/09/17 0353 05/09/17 0353 Imaging Last Impressions Lumbar Spine X-Ray 05/11/17 0000 Signed Impressions: Service Date/Time: Thursday, May 11, 2017 15:19 - CONCLUSION: 1. Intact lumbar vertebral bodies. 2. Severe compression deformity of T12 and moderate compression deformity of T10 Edwin Rojas MD Carotid Artery Ultrasound 05/06/17 0000 Signed Impressions: Service Date/Time: May 14:06 - CONCLUSION: 1. High grade greater than 70%% stenosis in the left internal carotid artery by velocity criteria. 2. Less than 50%% diameter stenosis in the right internal carotid artery. 3. Abnormal biphasic flow in the vertebral arteries. Blake Cadena MD Thoracic Spine MRI 05/05/17 0000 Signed Impressions: Service Date/Time: Friday, May 05, 2017 19:36 - CONCLUSION: 1. Compression deformity at the T12 vertebral body that appears acute. There is retropulsion of the posterior aspect of the T12 vertebral body by approximately 7 mm causing a moderate impression on the thecal sac. 2. More chronic appearing deformities identified at T5, T10 and T11. 3. Scattered disc abnormalities as described above. The most prominent discs are seen at the T7-T8 and T8-T9 levels as described above. Significant stenosis from the disc abnormalities is not seen. Duran Padilla MD Lumbar Spine CT 05/05/17 0000 Signed Impressions: Service Date/Time: Friday, May 05, 2017 13:26 - CONCLUSION: Severe compressive injury with significant bony retropulsion at T12. T11 also appears to be at least mildly injured, however this level was not imaged in its entirety on the scan of the lumbar spine. Duran Araya MD Hip and Pelvis X-Ray 05/05/17 Signed Impressions: Service Date/Time: Friday, May 05, 2017 13:00 - CONCLUSION: Left pubic rami fractures Duran Araya MD Head CT 05/05/17 Signed Impressions: Service Date/Time: Friday, May 05, 2017 13:23 - CONCLUSION: 1. No acute intracranial abnormality. Tony Lakhani MD Chest X-Ray 05/05/17 Signed Impressions: Service Date/Time: Friday, May 05, 2017 15:37 - CONCLUSION: 1. No acute abnormality or significant interval change. Tony Lakhani MD Cervical Spine CT 05/05/17 Signed Impressions: Service Date/Time: Friday, May 05, 2017 15:21 - CONCLUSION: 1. Exaggerated cervical lordosis with very subtle anterolisthesis of C4 on C5, likely degenerative. Consider flexion and extension views if there is significant concern regarding ligamentous instability. 2. No acute fracture. 3. Degenerative spondylosis of the cervical spine. 4. Bulky bilateral carotid artery calcified plaque. Tony Lakhani MD Abdomen/Pelvis CT 05/05/17 Signed Impressions: Service Date/Time: Friday, May 05, 2017 15:26 - CONCLUSION: Low thoracic spine compression injuries. Left pelvic fractures. Dilated urinary bladder. No solid organ injuries. Duran Araya MD PE at Discharge GENERAL: This is a 76 year old female in bed. No distress noted. SKIN: Warm and dry. HEAD: Atraumatic. Normocephalic. EYES: PERRLA ENT: No nasal bleeding or discharge. Mucous membranes pink and moist. NECK: Trachea midline. No JVD. CARDIOVASCULAR: Regular rate and rhythm. RESPIRATORY: No accessory muscle use. Lungs are clear to auscultation. Breath sounds equal bilaterally. No distress or dyspnea. GASTROINTESTINAL: BS + x 4 quads. Abdomen soft, non-tender, nondistended. MUSCULOSKELETAL: Extremities without cyanosis, or edema. Bilateral lower extremity discoloration. + peripheral pulses x 4 extremities. Warm with good capillary refill and sensation. MAEW. NEUROLOGICAL: A&O x 3. Normal speech and pattern. Hospital Course [place]: This is a 76 year old female who sustained a mechanical fall. She bumped into a piece of furniture that threw her off balance causing her to fall. She landed on her hip and struck her head. No LOC. She was able to ambulate after the fall but continued to have pain so came to the ED. Takes Plavix and ASA at home. INJURIES: T12 compression fx LEFT superior and inferior pubic rami fxs (non-op) PMHx: Carotid stenosis. PVD, HLD, glaucoma, hypothyroidism, CAD, RA Procedures: Consults: Neurosurgery. Orthopedics. Hospitalist. Cardiology. Case management. The patient is now tolerating a po diet. Eating and drinking well. Pain is being managed well with PO pain medications, and all hospital medications will continue at rehabilitation Pt is having regular bowel movements, and have recommended to patient to continue with stool softeners while taking narcotic pain medications to prevent constipation. Pt has been participating in PT and OT while admitted at [facility] and has been ambulating with their assistance and independently with TLSO brace. All follow up appointments have been provided and discussed with the patient. It is recommended that the patient keeps all his follow up appointments for continued recovery. Therefore, the patient is stable to be safely discharged to rehab from a trauma surgery standpoint. Thank you for allowing us to participate in her care. We wish Jony the best in her recovery. T12 compression fx Neurosurgery consulted and assisting in management and care Nonsurgical management at this time TLSO brace when OOB Patient has been OOB well using TLSO brace. Cardiology consulted for surgical clearance - cleared for surgery if warranted PT ordered SQ Heparin for DVT prophylaxis Standing x-rays stable LEFT superior and inferior pubic rami fxs Orthopedics consulted and assisting in management and care. Nonoperative management Pain control PWB LLE PT ordered Follow-up outpatient Pt Condition on Discharge: Stable Discharge Disposition: Discharge to SNF Discharge Instructions DIET: Follow Instructions for: As Tolerated, No Restrictions Activities you can perform: Partial Weight Bearing Other Activity Instructions: TLSO brace when OOB PWB LLE Amelie Morrison May 12, 2017 07:53
--- NOTE | 2017-05-12 15:59 | HHI.NSPN ---
Note Status Status: Progress Note Judah Palm MD May 12, 2017 15:59
== END 2017-05-11 18:55 | DRG 552 ==
LOC: PHED 11:34 → PHEDA 15:30 → N07A 18:19
PROVIDERS: ADMIT Surgery; ATTEND Surgery
DX: S22.080A Wedge compression fracture of T11-T12 vertebra, initial encounter for closed fracture (principal); I95.9 Hypotension, unspecified; E87.5 Hyperkalemia; E87.1 Hypo-osmolality and hyponatremia; S32.82XA Multiple fractures of pelvis without disruption of pelvic ring, initial encounter for closed fracture; D64.9 Anemia, unspecified; I65.23 Occlusion and stenosis of bilateral carotid arteries; E89.0 Postprocedural hypothyroidism; H40.9 Unspecified glaucoma; W18.30XA Fall on same level, unspecified, initial encounter; I73.9 Peripheral vascular disease, unspecified; I25.10 Atherosclerotic heart disease of native coronary artery without angina pectoris; M06.4 Inflammatory polyarthropathy; E78.5 Hyperlipidemia, unspecified; I10 Essential (primary) hypertension; M85.80 Other specified disorders of bone density and structure, unspecified site; Z96.641 Presence of right artificial hip joint; Z79.02 Long term (current) use of antithrombotics/antiplatelets; Z86.73 Personal history of transient ischemic attack (TIA), and cerebral infarction without residual deficits; Z79.82 Long term (current) use of aspirin; Z87.891 Personal history of nicotine dependence
CPT/HCPCS: 70450; 71010; 72020; 72125; 72131; 72146; 73502; 74177; 80048; 80053; 85025; 93880; 94150; C9113; J1644; J2270; J7030; L0484; Q9967

== ENCOUNTER 2017-12-03 12:31 | Observation (INO) | payer MEDICARE ==
[2017-12-03] VITALS (7 sets, daily range): BP systolic 104–117; BP diastolic 58–78; PULSE 68–92; RESP 16–18; TEMP 98–98.2; O2SAT 92–97
[~2017-12-03] VITALS: Ht 137.2 cm; Wt 36.0 kg
[~2017-12-03 12:31] MED LIST changes: -ASPI81TA82 PO; -CALC-137 PO; +CIPR0.3S2 RIGHT EYE; -CLIN1CAP5 PO; +DOCU1CAP39 PO; -DOCU50SY2 PO; +DORZ2SOL15 LEFT EYE; -DORZ2SOL3 EACH EYE; +DOXY1CAP74 PO; -FISH1000 PO; +HYDR-3516 PO; +K-TA10TA PO; -LATA0.00 EACH EYE; +LATA0.002 LEFT EYE; +PLAQ200T PO; +PLAV75TA29 PO; +REST0.05 LEFT EYE; +SENN1TAB PO; +VALT500T PO; -[UNRECOGNIZED DRUG - OTHER] PO
[2017-12-03] MEDS ORDERED: SODIUM CHLORIDE 0.9% FLUSH 10 ML FLUSH IV FLUSH PRN (13:00)
--- NOTE | 2017-12-03 13:07 | PD ---
HPI Chief Complaint: Fall Time Seen by Provider: 12:51 Travel History International Travel<30 days: No Contact w/Intl Traveler<30days: No Traveled to known affect area: No History of Present Illness HPI Patient comes emergency department with her daughter complaining of altered mental status. Reports was last seen normal last night. Reports when her son came home today around 1 hour prior to arrival found patient confused and walking around without her brace or walker. Reports that she had fallen. Patient denies any pain anywhere. Denies any chest pain, shortness of breath, nausea, vomiting, loss change in bowel or bladder, headache, or neck pain. Patient is alert oriented to name, date of , and place however, believes Annetta is president and years 1934. Patient's daughter reports that over the past several days she has been having intermittent confusion and going through looking over old pictures since her primary care doctor talked to her about possibility of hospice. Denies anything making symptoms better. Family reports that patient takes her Plavix in the morning and that she is a DNR. PFSH Past Medical History Hx Anticoagulant Therapy: Yes (PLAVIX AND ASA) Arthritis: Yes (HX R/A) Anxiety: No Depression: No Cancer: No Cardiovascular Problems: No High Cholesterol: Yes Cerebrovascular Accident: Yes (TIA X1) Coronary Artery Disease: Yes Diabetes: No Diminished Hearing: No Endocrine: Yes Glaucoma: Yes Genitourinary: No Hepatitis: No Hiatal Hernia: No Hypertension: No Immune Disorder: No Kidney Stones: No Medical other: No Musculoskeletal: Yes Neurologic: No Psychiatric: No Reproductive: No Respiratory: No Renal Failure: No Thyroid Disease: Yes Menopausal: Yes Past Surgical History Abdominal Surgery: No Cardiac Surgery: No Ear Surgery: No Endocrine Surgery: Yes (THYROIDECTOMY 48 YEARS AGO) Eye Surgery: Yes (bilat eyes- cataracts ) Genitourinary Surgery: No Gynecologic Surgery: No Oral Surgery: Yes Pacemaker: No Thoracic Surgery: No Tonsillectomy: Yes Other Surgery: Yes (PELVIC FX 2017) Social History Alcohol Use: No Tobacco Use: No (QUIT 20 YRS AGO SMOKED FOR 35 YRS 1 08/03 PPD) Substance Use: No Allergies-Medications (Allergen,Severity, Reaction): Coded Allergies: Sulfa (Sulfonamide Antibiotics) (Unverified Allergy, Severe, hives, ) atorvastatin (Unverified Allergy, Severe, RASH, 05/05/17) levofloxacin (Unverified Allergy, Severe, NAUSEA, AND BLOOD PRESSURE DROPS , 05/05/17) penicillin G (Unverified Allergy, Severe, hives, 05/05/17) Reported Meds & Prescriptions Reported Meds & Active Scripts Active Senna Plus 8.6-50 mg (Sennosides-Docusate Sodium) 8.6 Mg-50 Mg Tab 2 Tab PO BID 7 Days Hydrocodone-Acetaminophen 5-325 mg Tab 1 Tab PO Q6HR PRN Dok (Docusate Sodium) 100 Mg Cap 100 Mg PO BID 7 Days Reported Ciprofloxacin Opth Drops (Ciprofloxacin HCl) 0.3% Soln 1 Drop RIGHT EYE TID while awake x 5 days. Valtrex (Valacyclovir HCl) Unknown Strength Tab Unknown Dose PO DAILY Doxycycline 40 Mg Cap 50 Mg PO BID K-Tab (Potassium Chloride) 10 Meq Tab 10 Meq PO DAILY Plavix (Clopidogrel Bisulfate) 75 Mg Tab 75 Mg PO DAILY Levothyroxine (Levothyroxine Sodium) 88 Mcg Tab 88 Mcg PO DAILY Simvastatin 80 Mg Tab 80 Mg PO DAILY Plaquenil (Hydroxychloroquine Sulfate) 200 Mg Tab 200 Mg PO BID Take with food Restasis Opth 0.05% (Cyclosporine Opth 0.05%) 0.05% Emul 1 Drop LEFT EYE BID Latanoprost Opth Drops (Latanoprost) 0.005% Drops 1 Drop LEFT EYE HS Refrigerate until opened. Dorzolamide-Timolol Opth Drops 22.3-6.8 Mg/Ml Soln 1 Drop LEFT EYE BID Review of Systems Except as stated in HPI: all other systems reviewed are Neg Physical Exam Narrative GENERAL: Well-developed, well nourished, in no acute distress, and non-ill appearing. SKIN: Focused skin assessment warm and dry. HEAD: Atraumatic. Normocephalic. EYES: Pupils equal and round. EOMI. No scleral icterus. No injection or drainage. ENT: No nasal bleeding or discharge. Mucous membranes pink and moist. NECK: Trachea midline. JVD. Supple. No nuclear rigidity. No tenderness or crepitus over the C-spine. CARDIOVASCULAR: Regular rate and rhythm. Murmur appreciated. RESPIRATORY: No accessory muscle use. No respiratory distress. Clear to auscultation. Breath sounds equal bilaterally. GASTROINTESTINAL: Abdomen soft, non-tender, nondistended, and no guarding. Hepatic and splenic margins not palpable. No pulsatile mass. MUSCULOSKELETAL: No obvious deformities. No clubbing. No cyanosis. No edema. Full range of motion. NEUROLOGICAL: Awake and alert. No obvious cranial nerve deficits. Motor grossly within normal limits. Normal speech. PSYCHIATRIC: Appropriate mood and affect. Data Data Last Documented VS Vital Signs Date Time Temp Pulse Resp B/P (MAP) Pulse Ox O2 Delivery O2 Flow Rate FiO2 12/03/17 13:19 68 18 92 Room Air 12/03/17 12:37 98.2 Orders Orders Electrocardiogram (12/03/17 12:59) Ammonia (12/03/17 12:59) Complete Blood Count With Diff (12/03/17 12:59) Comprehensive Metabolic Panel (12/03/17 12:59) Creatine Kinase (Cpk) (12/03/17 12:59) Prothrombin Time / Inr (Pt) (12/03/17 12:59) Act Partial Throm Time (Ptt) (12/03/17 12:59) Troponin I (12/03/17 12:59) Urinalysis - C+S If Indicated (12/03/17 12:59) Ct Brain W/O Iv Contrast(Rout) (12/03/17 12:59) Blood Glucose (12/03/17 12:59) Ecg Monitoring (12/03/17 12:59) Iv Access Insert/Monitor (12/03/17 12:59) Cath For Specimen (12/03/17 12:59) Oximetry (12/03/17 12:59) Sodium Chloride 0.9% Flush (Ns Flush) (12/03/17 13:00) Chest, Single Ap (12/03/17 ) Ct Cerv Spine W/O Contrast (12/03/17 ) CKMB (12/03/17 13:09) CKMB% (12/03/17 13:09) Urine Culture (12/03/17 13:39) Spine, Cervical Fl/Ext Only (12/03/17 ) Admit Order (Ed Use Only) (12/03/17 16:10) Labs Laboratory Tests Test 12/03/17 13:09 12/03/17 13:39 White Blood Count 7.0 TH/MM3 Red Blood Count 4.25 MIL/MM3 Hemoglobin 13.7 GM/DL Hematocrit 40.9 % Mean Corpuscular Volume 96.4 FL Mean Corpuscular Hemoglobin 32.3 PG Mean Corpuscular Hemoglobin Concent 33.5 % Red Cell Distribution Width 12.8 % Platelet Count 165 TH/MM3 Mean Platelet Volume 7.6 FL Neutrophils (%) (Auto) 82.9 % Lymphocytes (%) (Auto) 9.6 % Monocytes (%) (Auto) 7.1 % Eosinophils (%) (Auto) 0.0 % Basophils (%) (Auto) 0.4 % Neutrophils # (Auto) 5.8 TH/MM3 Lymphocytes # (Auto) 0.7 TH/MM3 Monocytes # (Auto) 0.5 TH/MM3 Eosinophils # (Auto) 0.0 TH/MM3 Basophils # (Auto) 0.0 TH/MM3 CBC Comment DIFF FINAL Differential Comment Prothrombin Time 10.9 SEC Prothromb Time International Ratio 1.1 RATIO Activated Partial Thromboplast Time 24.3 SEC Blood Urea Nitrogen 9 MG/DL Creatinine 0.75 MG/DL Random Glucose 84 MG/DL Total Protein 6.7 GM/DL Albumin 4.4 GM/DL Calcium Level 8.8 MG/DL Alkaline Phosphatase 62 U/L Aspartate Amino Transf (AST/SGOT) 75 U/L Alanine Aminotransferase (ALT/SGPT) 54 U/L Total Bilirubin 0.9 MG/DL Sodium Level 136 MEQ/L Potassium Level 3.7 MEQ/L Chloride Level 99 MEQ/L Carbon Dioxide Level 24.6 MEQ/L Anion Gap 12 MEQ/L Estimat Glomerular Filtration Rate 75 ML/MIN Ammonia 11 MCMOL/L Total Creatine Kinase 357 U/L Creatine Kinase MB 18.8 NG/ML Creatine Kinase MB % 5.3 % Troponin I 0.12 NG/ML Urine Color YELLOW Urine Turbidity CLEAR Urine pH 7.0 Urine Specific [place] 1.008 Urine Protein TRACE mg/dL Urine Glucose (UA) NEG mg/dL Urine Ketones NEG mg/dL Urine Occult Blood MOD Urine Nitrite NEG Urine Bilirubin NEG Urine Urobilinogen 0.2 MG/DL Urine Leukocyte Esterase TRACE Urine RBC 2 /hpf Urine WBC 2 /hpf Urine Bacteria RARE /hpf Urine Hyaline Casts 2 /lpf Microscopic Urinalysis Comment CATH-CULTURE IND MDM Medical Decision Making Medical Screen Exam Complete: Yes Emergency Medical Condition: Yes Interpretation(s) EKG reviewed by Dr. Hardin shows sinus rhythm ventricular rate 77. No STEMI. Last Impressions Head CT 12/03/17 1259 Signed Impressions: Service Date/Time: Sunday, December 03, 2017 14:46 - CONCLUSION: Atrophy otherwise negative Troy Mary MD FACR Chest X-Ray 12/03/17 0000 Signed Impressions: Service Date/Time: Sunday, December 03, 2017 13:12 - CONCLUSION: No acute disease. Troy Mary MD FACR Cervical Spine CT 12/03/17 0000 Signed Impressions: Service Date/Time: Sunday, December 03, 2017 14:46 - CONCLUSION: Degenerative changes, negative for fracture. Given the degree of lordosis controlled flexion-extension films could be used to exclude instability. Extensive vascular calcifications. Troy Mary MD FACR Flexion and extension films read by the radiologist show: 1. Stable 2 mm retrolisthesis of C6 on C7. This may be due to facet arthropathy is noted on cervical CT exam. 2. Otherwise, no focal or segmental body. 3. Very densely calcified origin of the left common carotid and subclavian/ right common carotid artery on CT exam. Although evaluation is limited by lack of contrast, there is likely severe ostial stenosis or occlusion. Consider CTA examination for further evaluation. Differential Diagnosis AMS, ACS, TIA, CVA, pneumonia, UTI, metabolic disturbance, dementia, intracranial hemorrhage, Narrative Course Patient was seen and examined. Initial laboratory radiological studies were ordered. IV is established patient placed on cardiac monitoring. Upon noted elevated troponin aspirin was held secondary to patient being on Plavix and CT scan pending. Upon results discussed patient with Dr. Hardin who did not feel the the patient needed aspirin at this time secondary to being on Plavix. Discussed all findings and plan of care with patient and family. Patient is agreeable for admission. All questions were answered. Discussed patient with Dr. Marques who saw and evaluated the patient and is in agreement with plan of care disposition. Discussed patient with hospitalist, who is agreeable to admit the patient. Patient remained stable throughout ED course. Physician Communication Physician Communication [phone] Fenton, who is agreeable to admit the patient. Diagnosis Primary Impression: Altered mental status, unspecified Qualified Codes: R41.82 - Altered mental status, unspecified Additional Impression: Elevated troponin Admitting Information Admitting Physician Requests: Observation Condition: Stable Gonzalo Martinez December 03, 2017 13:07
[2017-12-03 13:23] LABS: AUTOMATED NEUTROPHIL # 5.8 TH/MM3 (1.8-7.7); BASOPHIL % 0.4 % (0.0-2.0); HEMATOCRIT 40.9 % (35.0-46.0); HEMOGLOBIN 13.7 GM/DL (11.6-15.3); LYMPH % 9.6 % (9.0-44.0); LYMPHOCYTE # 0.7 TH/MM3 (1.0-4.8); MEAN CELL VOLUME 96.4 FL (80.0-100.0); MEAN CORPUSCULAR HEMOGLOBIN 32.3 PG (27.0-34.0); MEAN CORPUSCULAR HGB CONC 33.5 % (32.0-36.0); MEAN PLATELET VOLUME 7.6 FL (7.0-11.0); MONO % 7.1 % (0.0-8.0); MONOCYTE # 0.5 TH/MM3 (0-0.9); NEUT % 82.9 % (16.0-70.0); PLATELET COUNT 165 TH/MM3 (150-450); RED BLOOD COUNT 4.25 MIL/MM3 (4.00-5.30); RED CELL DISTRIBUTION WIDTH 12.8 % (11.6-17.2)
[2017-12-03 13:28] LABS: INTERNATIONAL NORMALIZED RATIO 1.1 RATIO; PROTHROMBIN TIME - PATIENT 10.9 SEC (9.8-11.6)
[2017-12-03 13:38] LABS: ALBUMIN 4.4 GM/DL (3.4-5.0); ALT (GPT) 54 U/L (10-53); AST (GOT) 75 U/L (15-37); BICARBONATE 24.6 MEQ/L (21.0-32.0); BLOOD UREA NITROGEN 9 MG/DL (7-18); CALCIUM 8.8 MG/DL (8.5-10.1); CHLORIDE 99 MEQ/L (98-107); CREATININE 0.75 MG/DL (0.50-1.00); GLOMERULAR FILTRATION RATE 75 ML/MIN (>89); GLUCOSE,RANDOM 84 MG/DL (74-106); SODIUM (NA) 136 MEQ/L (136-145)
[2017-12-03 13:42] LABS: ALKALINE PHOSPHATASE 62 U/L (45-117); TOTAL BILIRUBIN ADULT 0.9 MG/DL (0.2-1.0); TOTAL PROTEIN 6.7 GM/DL (6.4-8.2); TROPONIN I 0.12 NG/ML (0.02-0.05)
--- NOTE | 2017-12-03 13:49 | RADRPT ---
EXAM DATE/TIME: 12/03/2017 13:12 [facility] COMPARISON: CHEST SINGLE AP, May 05, 2017, 15:37. INDICATIONS : Syncope MEDICAL HISTORY : Osteoarthritis. SURGICAL HISTORY : None. ENCOUNTER: Initial ACUITY: 1 day PAIN SCORE: 3/10 LOCATION: Bilateral chest FINDINGS: A single view of the chest demonstrates the lungs to be symmetrically aerated without evidence of mas s, infiltrate or effusion. The cardiomediastinal contours are unremarkable. Osseous structures are intact. CONCLUSION: No acute disease. Troy Mary MD FACR on December 03, 2017 at 13:47 Board Certified Radiologist. This report was verified electronically.
[2017-12-03 14:09] LABS: BILIRUBIN, URINE NEG (NEG); BLOOD, URINE MOD (NEG); GLUCOSE,URINE NEG (NEG); KETONE, URINE NEG (NEG); NITRITE,URINE NEG (NEG); URINE COLOR YELLOW (YELLW/STRAW); URINE LEUKOCYTE ESTERASE TRACE (NEG)
[2017-12-03 14:21] LABS: BACTERIA, URINE RARE /hpf; HYALINE CAST, URINE 2 /lpf (RARE)
--- NOTE | 2017-12-03 15:21 | RADRPT ---
EXAM DATE/TIME: 12/03/2017 14:46 [facility] COMPARISON: CT CERVICAL SPINE W/O CONTRAST, May 05, 2017, 15:21. INDICATIONS : Trauma; fall. RADIATION DOSE: 12.46 CTDIvol (mGy) MEDICAL HISTORY : Rheumatoid arthritis. Stroke SURGICAL HISTORY : Thyroidectomy. ENCOUNTER: Initial ACUITY: 1 day PAIN SCALE: 4/10 LOCATION: Bilateral neck TECHNIQUE: Volumetric scanning of the cervical spine was performed. Multiplanar reconstructions in the sagittal, coronal and oblique axial planes were performed. Using automated exposure control and adjustment o f the mA and/or kV according to patient size, radiation dose was kept as low as reasonably achievable to obtain optimal diagnostic quality images. DICOM format image data is available electronically f or review and comparison. FINDINGS: VERTEBRAE: Exaggeration of the normal cervical lordosis with preservation of vertebral body heights. ALIGNMENT: No evidence of subluxation. C2-C3: The bony spinal canal is normal in size. No evidence of disc bulge or herniation. The neural forami na are bilaterally patent. C3-C4: Mild uncinate ridging with minimal right-sided neural foramina encroachment C4-C5: Moderate facet disease with minimal bilateral neural foramina encroachment and mild uncinate ridging minimal central disc. C5-C6: Moderate uncinate ridging with moderate bilateral neural foramina encroachment. C6-C7: The bony spinal canal is normal in size. No evidence of disc bulge or herniation. The neural forami na are bilaterally patent. C7-T1: The bony spinal canal is normal in size. No evidence of disc bulge or herniation. The neural forami na are bilaterally patent. Extensive vascular calcifications. CONCLUSION: Degenerative changes, negative for fracture. Given the degree of lordosis controlled flexion-extensi on films could be used to exclude instability. Extensive vascular calcifications. Troy Mary MD FACR on December 03, 2017 at 15:17 Board Certified Radiologist. This report was verified electronically.
--- NOTE | 2017-12-03 15:23 | RADRPT ---
EXAM DATE/TIME: 12/03/2017 14:46 [facility] COMPARISON: CT BRAIN W/O CONTRAST, May 05, 2017, 13:23. INDICATIONS : Altered mental status. RADIATION DOSE: 56.35 CTDIvol (mGy) MEDICAL HISTORY : Stroke. Rheumatoid arthritis. SURGICAL HISTORY : Thyroidectomy. ENCOUNTER: Initial ACUITY: 1 day PAIN SCALE: 5/10 LOCATION: cranial TECHNIQUE: Multiple contiguous axial images were obtained of the head. Using automated exposure control and adj ustment of the mA and/or kV according to patient size, radiation dose was kept as low as reasonably a chievable to obtain optimal diagnostic quality images. DICOM format image data is available electro nically for review and comparison. FINDINGS: There is marked central and cortical atrophy with dilatation of ventricular and sulcal spaces. There is no parenchymal hemorrhage, acute infarction or mass lesion identified. There are no extra-axial fluid collections appreciated. The posterior fossa is unremarkable with midline fourth ventricle. T he portion of the orbits and paranasal sinuses visualized are unremarkable. CONCLUSION: Atrophy otherwise negative Troy Mary MD FACR on December 03, 2017 at 15:20 Board Certified Radiologist. This report was verified electronically.
--- NOTE | 2017-12-03 15:55 | PD ---
Data Data Last Documented VS Vital Signs Date Time Temp Pulse Resp B/P (MAP) Pulse Ox O2 Delivery O2 Flow Rate FiO2 12/03/17 13:19 68 18 92 Room Air 12/03/17 12:37 98.2 Orders Orders Electrocardiogram (12/03/17 12:59) Ammonia (12/03/17 12:59) Complete Blood Count With Diff (12/03/17 12:59) Comprehensive Metabolic Panel (12/03/17 12:59) Creatine Kinase (Cpk) (12/03/17 12:59) Prothrombin Time / Inr (Pt) (12/03/17 12:59) Act Partial Throm Time (Ptt) (12/03/17 12:59) Troponin I (12/03/17 12:59) Urinalysis - C+S If Indicated (12/03/17 12:59) Ct Brain W/O Iv Contrast(Rout) (12/03/17 12:59) Blood Glucose (12/03/17 12:59) Ecg Monitoring (12/03/17 12:59) Iv Access Insert/Monitor (12/03/17 12:59) Cath For Specimen (12/03/17 12:59) Oximetry (12/03/17 12:59) Sodium Chloride 0.9% Flush (Ns Flush) (12/03/17 13:00) Chest, Single Ap (12/03/17 ) Ct Cerv Spine W/O Contrast (12/03/17 ) CKMB (12/03/17 13:09) CKMB% (12/03/17 13:09) Urine Culture (12/03/17 13:39) Spine, Cervical Fl/Ext Only (12/03/17 ) Admit Order (Ed Use Only) (12/03/17 16:10) Labs Laboratory Tests Test 12/03/17 13:09 12/03/17 13:39 White Blood Count 7.0 TH/MM3 Red Blood Count 4.25 MIL/MM3 Hemoglobin 13.7 GM/DL Hematocrit 40.9 % Mean Corpuscular Volume 96.4 FL Mean Corpuscular Hemoglobin 32.3 PG Mean Corpuscular Hemoglobin Concent 33.5 % Red Cell Distribution Width 12.8 % Platelet Count 165 TH/MM3 Mean Platelet Volume 7.6 FL Neutrophils (%) (Auto) 82.9 % Lymphocytes (%) (Auto) 9.6 % Monocytes (%) (Auto) 7.1 % Eosinophils (%) (Auto) 0.0 % Basophils (%) (Auto) 0.4 % Neutrophils # (Auto) 5.8 TH/MM3 Lymphocytes # (Auto) 0.7 TH/MM3 Monocytes # (Auto) 0.5 TH/MM3 Eosinophils # (Auto) 0.0 TH/MM3 Basophils # (Auto) 0.0 TH/MM3 CBC Comment DIFF FINAL Differential Comment Prothrombin Time 10.9 SEC Prothromb Time International Ratio 1.1 RATIO Activated Partial Thromboplast Time 24.3 SEC Blood Urea Nitrogen 9 MG/DL Creatinine 0.75 MG/DL Random Glucose 84 MG/DL Total Protein 6.7 GM/DL Albumin 4.4 GM/DL Calcium Level 8.8 MG/DL Alkaline Phosphatase 62 U/L Aspartate Amino Transf (AST/SGOT) 75 U/L Alanine Aminotransferase (ALT/SGPT) 54 U/L Total Bilirubin 0.9 MG/DL Sodium Level 136 MEQ/L Potassium Level 3.7 MEQ/L Chloride Level 99 MEQ/L Carbon Dioxide Level 24.6 MEQ/L Anion Gap 12 MEQ/L Estimat Glomerular Filtration Rate 75 ML/MIN Ammonia 11 MCMOL/L Total Creatine Kinase 357 U/L Creatine Kinase MB 18.8 NG/ML Creatine Kinase MB % 5.3 % Troponin I 0.12 NG/ML Urine Color YELLOW Urine Turbidity CLEAR Urine pH 7.0 Urine Specific [place] 1.008 Urine Protein TRACE mg/dL Urine Glucose (UA) NEG mg/dL Urine Ketones NEG mg/dL Urine Occult Blood MOD Urine Nitrite NEG Urine Bilirubin NEG Urine Urobilinogen 0.2 MG/DL Urine Leukocyte Esterase TRACE Urine RBC 2 /hpf Urine WBC 2 /hpf Urine Bacteria RARE /hpf Urine Hyaline Casts 2 /lpf Microscopic Urinalysis Comment CATH-CULTURE IND MDM Supervised Visit with ANNIE: Yes Narrative Course I, Dr. Hardin, have reviewed the advance practice practitioner's documentation and am in agreement, met with the patient face to face, made the diagnosis, and the medical decision making was done by me. Hailey Hardin DO December 03, 2017 15:55
--- NOTE | 2017-12-03 16:28 | RADRPT ---
EXAM DATE/TIME: 12/03/2017 15:37 [facility] COMPARISON: CT CERVICAL SPINE W/O CONTRAST, December 03, 2017, 14:46. INDICATIONS : Pt fell today. Trauma. MEDICAL HISTORY : Osteoarthritis. SURGICAL HISTORY : None. ENCOUNTER: Subsequent ACUITY: 1 day PAIN SCORE: 4/10 LOCATION: Bilateral neck Right lateral border Cervical Spine FINDINGS: Flexion and extension views of the cervical spine were performed. There is slight approximately 2 mm retrolisthesis of C6 on C7. This remains stable during flexion and extension. Remaining size alignme nt is maintained and there is no evidence of subluxation. The prevertebral soft tissues are normal i n thickness. CONCLUSION: 1. Stable 2 mm retrolisthesis of C6 on C7. This may be due to facet arthropathy is noted on cervical CT exam. 2. Otherwise, no focal or segmental body. 3. Very densely calcified origin of the left common carotid and subclavian/right common carotid arter y on CT exam. Although evaluation is limited by lack of contrast, there is likely severe ostial steno sis or occlusion. Consider CTA examination for further evaluation. Tony Lakhani MD on December 03, 2017 at 16:18 Board Certified Radiologist. This report was verified electronically.
--- NOTE | 2017-12-03 16:36 | HHI.HP ---
HPI Service [facility] Primary Care Physician Francois Griffin MD, PhD Admission Diagnosis Altered mental status, elevated troponin Chief Complaint: Confusion Travel History International Travel<30 Days: No Contact w/Intl Traveler <30 Da: No Traveled to Known Affected Are: No History of Present Illness Mrs. Dye is a pleasant 77 y/o WF with HTN/occasional hypotension, hyperlipidemia, CKD, stage 3, inflammatory polyarthritis, and hypothyroidism. She was brought into the ED for altered mental status. When the pts grandson arrived home this morning the pt was very confused and standing in the kitchen without her walker or her back brace on and reported that she had fallen but its unclear when this occurred. Pt was reportedly somewhat combative which is very unusual for her. Pt is currently awake and alert and oriented to self and place. Confused about time, she reports that its 1940. She is pleasant and conversive. Pt denies any pain any where, denies any fevers or chills, back pain , dizziness. Pt is unable to tell us any of what happened last night. Pt has more recently had weight loss and poor oral intake. Her PCP had recently discussed with the pt and family transition to Hospice care due to weight loss/failure to thrive and generalized decline. Pt is currently a DNR. Pts family at the bedside feels that since having the discussion with her PCP about Hospice that the pt has been "frazzled" and somewhat more erratic or confused. In the ED the pts labs were abnormal with Troponin I 0.12, CK-MB% 5.3%, total CK 357. Pt denies any chest pain. Her family states that they had noticed more recently that the pt would seem winded when ambulating around the house but denies any cough, congestion, palpitations, dizziness or unilateral weakness. Discussed with the pt Hospice services and she and the family would like to meet with Hospice to discuss options. They do not want to pursue any aggressive workup as they do not feel the pt would be able to tolerate any procedures or interventions. Review of Systems ROS Limitations: Poor Historian Constitutional: COMPLAINS OF: Weight loss, Change in appetite Eyes: DENIES: Vision loss Ears, nose, mouth, throat: DENIES: Hearing loss Respiratory: DENIES: Cough, Shortness of breath Cardiovascular: COMPLAINS OF: Dyspnea on Exertion, DENIES: Chest pain, Lower Extremity Edema Gastrointestinal: DENIES: Abdominal pain, Nausea, Vomiting Genitourinary: DENIES: Urinary frequency, Urgency Musculoskeletal: DENIES: Back pain, Neck pain Integumentary: DENIES: Rash Neurologic: DENIES: Headache Psychiatric: COMPLAINS OF: Confusion Past Family Social History Past Medical History HTN/Occasional hypotension Hyperlipidemia CKD, stage 3 Inflammatory polyarthritis/RA Hypothyroidism Hyponatremia, Hyperkalemia Osteopenia Right femoral neck fracture in 2013 T12 compression fracture and pelvic fracture in 05/2017 PAD, multilevel disease involving the descending aortic, bilateral iliac inflow disease R>L, and SFA Hx of tobacco use Hx of alcohol abuse Hx of TIA Hx of glaucoma Hx of cataracts 2D echo (07/2009) - Mild LVH - Estimated EF 65-70% - Moderate aortic regurg - Mildly calcified mitral valve annulus Past Surgical History Right medullary nail fixation for right subtrochanteric femoral fracture on 09/20 Bilateral cataract surgery Thyroidectomy with previous HARMON in the Tonsillectomy/Adenoidectomy Reported Medications -K-Tab 10 Meq PO DAILY -Plavix 75 Mg PO DAILY -Simvastatin 80 Mg PO HS -Plaquenil 200 Mg PO BID --Restasis Opth 0.05% 1 Drop BOTH EYES BID --Latanoprost Opth Drops 0.005% Drops 1 Drop BOTH EYES HS --Dorzolamide-Timolol Opth Drops 22.3-6.8 Mg/Ml Soln 1 Drop BOTH EYES BID --Levothyroxine 88 Mcg PO DAILY, 44 Mcg on Wednesday ?Ciprofloxacin Opth Drops (Ciprofloxacin HCl) 0.3% Soln 1 Drop RIGHT EYE TID while awake x 5 days. ?Valtrex (Valacyclovir HCl) Unknown Strength Tab Unknown Dose PO DAILY ?Doxycycline 40 Mg Cap 50 Mg PO BID Allergies: Coded Allergies: Sulfa (Sulfonamide Antibiotics) (Unverified Allergy, Severe, hives, ) atorvastatin (Unverified Allergy, Severe, RASH, 05/05/17) levofloxacin (Unverified Allergy, Severe, NAUSEA, AND BLOOD PRESSURE DROPS , 05/05/17) penicillin G (Unverified Allergy, Severe, hives, 05/05/17) Family History Noncontributory Social History Hx of tobacco use, smoked 1.5ppd x 35 years, quit in 1997 Hx of heavy alcohol use, none since 2008 No hx of illicit drug use Pt is a Her grandson and his live with the pt Physical Exam Vital Signs Vital Signs Date Time Temp Pulse Resp B/P (MAP) Pulse Ox O2 Delivery O2 Flow Rate FiO2 12/03/17 13:19 68 18 92 Room Air 12/03/17 12:58 88 18 117/76 (90) 92 Room Air 12/03/17 12:58 88 18 92 Room Air 12/03/17 12:37 98.2 87 16 111/58 (75) 97 Physical Exam GENERAL: This is a well-nourished, well-developed patient, in no apparent distress. SKIN: No rashes, ecchymoses or lesions. Cool and dry. HEENT: Atraumatic. Normocephalic. No temporal or scalp tenderness. No scleral icterus. Airway patent. NECK: Trachea midline, supple, nontender. CARDIO: Regular. RESP: CTA bilaterally. No wheezes, rales, or rhonchi. ABD: +BS, soft, non-tender, nondistended. EXT: Extremities without clubbing, cyanosis, or edema. NEURO: Awake and alert and oriented to self only. Motor and sensory grossly within normal limits. Five out of 5 muscle strength in all muscle groups. Normal speech. Laboratory Laboratory Tests Test 12/03/17 13:09 12/03/17 13:39 White Blood Count 7.0 Red Blood Count 4.25 Hemoglobin 13.7 Hematocrit 40.9 Mean Corpuscular Volume 96.4 Mean Corpuscular Hemoglobin 32.3 Mean Corpuscular Hemoglobin Concent 33.5 Red Cell Distribution Width 12.8 Platelet Count 165 Mean Platelet Volume 7.6 Neutrophils (%) (Auto) 82.9 Lymphocytes (%) (Auto) 9.6 Monocytes (%) (Auto) 7.1 Eosinophils (%) (Auto) 0.0 Basophils (%) (Auto) 0.4 Neutrophils # (Auto) 5.8 Lymphocytes # (Auto) 0.7 Monocytes # (Auto) 0.5 Eosinophils # (Auto) 0.0 Basophils # (Auto) 0.0 CBC Comment DIFF FINAL Differential Comment Prothrombin Time 10.9 Prothromb Time International Ratio 1.1 Activated Partial Thromboplast Time 24.3 Blood Urea Nitrogen 9 Creatinine 0.75 Random Glucose 84 Total Protein 6.7 Albumin 4.4 Calcium Level 8.8 Alkaline Phosphatase 62 Aspartate Amino Transf (AST/SGOT) 75 Alanine Aminotransferase (ALT/SGPT) 54 Total Bilirubin 0.9 Sodium Level 136 Potassium Level 3.7 Chloride Level 99 Carbon Dioxide Level 24.6 Anion Gap 12 Estimat Glomerular Filtration Rate 75 Ammonia 11 Total Creatine Kinase 357 Creatine Kinase MB 18.8 Creatine Kinase MB % 5.3 Troponin I 0.12 Urine Color YELLOW Urine Turbidity CLEAR Urine pH 7.0 Urine Specific [place] 1.008 Urine Protein TRACE Urine Glucose (UA) NEG Urine Ketones NEG Urine Occult Blood MOD Urine Nitrite NEG Urine Bilirubin NEG Urine Urobilinogen 0.2 Urine Leukocyte Esterase TRACE Urine RBC 2 Urine WBC 2 Urine Bacteria RARE Urine Hyaline Casts 2 Microscopic Urinalysis Comment CATH-CULTURE IND Date/Time Source Procedure Growth Status 12/03/17 13:39 Urine Catheterized Urine Urine Culture Pending Received Result Diagram: 12/03/17 1309 12/03/17 1309 Imaging Last Impressions Head CT 12/03/17 1259 Signed Impressions: Service Date/Time: Sunday, December 03, 2017 14:46 - CONCLUSION: Atrophy otherwise negative Troy Mary MD FACR Chest X-Ray 12/03/17 0000 Signed Impressions: Service Date/Time: Sunday, December 03, 2017 13:12 - CONCLUSION: No acute disease. Troy Mary MD FACR Cervical Spine CT 12/03/17 0000 Signed Impressions: Service Date/Time: Sunday, December 03, 2017 14:46 - CONCLUSION: Degenerative changes, negative for fracture. Given the degree of lordosis controlled flexion-extension films could be used to exclude instability. Extensive vascular calcifications. Troy Mary MD FACR Caprini VTE Risk Assessment Caprini VTE Risk Assessment: Mod/High Risk (score >= 2) Caprini Risk Assessment Model Point Value = 1 Point Value = 2 Point Value = 3 Point Value = 5 Age 41-60 Minor surgery BMI > 25 kg/m2 Swollen legs Varicose veins or History of unexplained or recurrent spontaneous Oral contraceptives or hormone replacement Sepsis (< 1 month) Serious lung disease, including pneumonia (< 1 month) Abnormal pulmonary function Acute myocardial infarction Congestive heart failure (< 1 month) History of inflammatory bowel disease Medical patient at bed rest Age 61-74 Arthroscopic surgery Major open surgery (> 45 min) Laparoscopic surgery (> 45 min) Malignancy Confined to bed (> 72 hours) Immobilizing plaster cast Central venous access Age >= 75 History of VTE Family history of VTE Factor V Leiden Prothrombin [id number] Lupus anticoagulant Anticardiolipin antibodies Elevated serum homocysteine Heparin-induced thrombocytopenia Other congenital or acquired thrombophilia Stroke (< 1 month) Elective arthroplasty Hip, pelvis, or leg fracture Acute spinal cord injury (< 1 month) Prophylaxis Regimen Total Risk Factor Score Risk Level Prophylaxis Regimen 0-1 Low Early ambulation 2 Moderate Order ONE of the following: *Sequential Compression Device (SCD) *Heparin 5000 units SQ BID 3-4 Higher Order ONE of the following medications: *Heparin 5000 units SQ TID *Enoxaparin/Lovenox 40 mg SQ daily (WT < 150 kg, CrCl > 30 mL/min) *Enoxaparin/Lovenox 30 mg SQ daily (WT < 150 kg, CrCl > 10-29 mL/min) *Enoxaparin/Lovenox 30 mg SQ BID (WT < 150 kg, CrCl > 30 mL/min) AND/OR *Sequential Compression Device (SCD) 5 or more Highest Order ONE of the following medications: *Heparin 5000 units SQ TID (Preferred with Epidurals) *Enoxaparin/Lovenox 40 mg SQ daily (WT < 150 kg, CrCl > 30 mL/min) *Enoxaparin/Lovenox 30 mg SQ daily (WT < 150 kg, CrCl > 10-29 mL/min) *Enoxaparin/Lovenox 30 mg SQ BID (WT < 150 kg, CrCl > 30 mL/min) AND *Sequential Compression Device (SCD) Assessment and Plan Problem List: (1) Elevated troponin ICD Codes: R74.8 - Abnormal levels of other serum enzymes Status: Acute Plan: AMS Failure to thrive/Generalized decline Elevated Cardiac enzymes - Pt is a 77 y/o WF with HTN/occasional hypotension, hyperlipidemia, CKD, stage 3, inflammatory polyarthritis, and hypothyroidism. - She was brought into the ED for altered mental status. When the pts grandson arrived home this morning the pt was very confused and standing in the kitchen without her walker or her back brace on and reported that she had fallen but its unclear when this occurred. Pt was reportedly somewhat combative which is very unusual for her. Pt is currently awake and alert and oriented to self and place. Confused about time, she reports that its 1940. - Her PCP had recently discussed with the pt and family transition to Hospice care due to weight loss/failure to thrive and generalized decline. - Pt is currently a DNR. - In the ED the pts labs were abnormal with Troponin I 0.12, CK-MB% 5.3%, total CK 357. No reported chest pain. - Discussed with the pt Hospice services and she and the family would like to meet with Hospice to discuss options. They do not want to pursue any aggressive workup as they do not feel the pt would be able to tolerate any procedures or interventions. - Consult Hospice for information and options for discharge - Supportive care - DVT prophylaxis with SCDs Hypertension/Hypotension - Monitor - Pt is not on any BP meds at home Glaucoma - Resume home meds Hyperlipidemia - Resume home meds Hypothyroidism - Resume home meds (2) Altered mental status, unspecified ICD Codes: R41.82 - Altered mental status, unspecified Status: Acute (3) Hypothyroidism ICD Codes: E03.9 - Hypothyroidism Status: Chronic (4) Hyperlipemia ICD Codes: E78.5 - Hyperlipemia Status: Chronic (5) Hypothyroid ICD Codes: E03.9 - Hypothyroid Status: Acute (6) Glaucoma ICD Codes: H40.9 - Glaucoma Status: Chronic Problem Qualifiers (1) Altered mental status, unspecified: Qualified Codes: R41.82 - Altered mental status, unspecified Hailey Davidson December 03, 2017 16:36
[2017-12-03] MEDS ORDERED: ONDANSETRON HCL 4 MG/2 ML VIAL IV PUSH PRN (17:00)
[2017-12-03] MEDS ORDERED: ACETAMINOPHEN 325 MG TAB PO PRN (17:00)
[2017-12-03] MEDS ORDERED: CYCLOSPORINE OPTH LEFT EYE SCH (21:00)
[2017-12-03] MEDS ORDERED: [UNRECOGNIZED DRUG - OTHER] LEFT EYE SCH (21:00)
[2017-12-03] MEDS: HYDROXYCHLOROQUINE SULFATE 200 MG TAB PO SCH (21:25)
[2017-12-03] MEDS: DORZOLAMIDE/TIMOLOL OPTH SOLN 10 ML BTL LEFT EYE SCH (22:04)
[2017-12-03] MEDS: LATANOPROST 0.005% OPHT SOLN 2.5 ML BTL LEFT EYE SCH (22:07)
[2017-12-04 00:27] VITALS: BP 108/68; PULSE 66; RESP 16; TEMP 97.8; O2SAT 98
[2017-12-04 04:10] VITALS: BP 90/53; PULSE 67; RESP 16; TEMP 97.7; O2SAT 98
[2017-12-04] MEDS: LEVOTHYROXINE SODIUM 88 MCG TAB PO SCH (05:32)
[2017-12-04 07:38] VITALS: BP 98/68; PULSE 70; RESP 20; TEMP 98.2; O2SAT 94
[2017-12-04] MEDS ORDERED: SIMVASTATIN 80 MG PO SCH (09:00)
[2017-12-04] MEDS ORDERED: [UNRECOGNIZED DRUG - OTHER] PO SCH (09:00)
[2017-12-04] MEDS: DORZOLAMIDE/TIMOLOL OPTH SOLN 10 ML BTL LEFT EYE SCH ×2 (09:49→21:59)
[2017-12-04] MEDS: HYDROXYCHLOROQUINE SULFATE 200 MG TAB PO SCH ×2 (09:50→21:58)
[2017-12-04] MEDS: CLOPIDOGREL 75 MG TAB PO SCH (09:55)
[2017-12-04 10:59] LABS: TROPONIN I 0.16 NG/ML (0.02-0.05)
--- NOTE | 2017-12-04 11:36 | HHI.PR ---
Subjective Remarks No new complaints Objective Vitals Vital Signs Date Time Temp Pulse Resp B/P (MAP) Pulse Ox O2 Delivery O2 Flow Rate FiO2 12/04/17 07:38 98.2 70 20 98/68 (78) 94 12/04/17 04:10 97.7 67 16 90/53 (65) 98 12/04/17 00:27 97.8 66 16 108/68 (81) 98 12/03/17 20:21 98.0 84 16 105/63 (77) 96 12/03/17 19:17 Nasal Cannula 2.00 12/03/17 17:51 98.1 92 16 117/78 (91) 93 12/03/17 17:13 94 Nasal Cannula 2.00 12/03/17 17:00 92 18 104/78 (87) 93 Room Air 12/03/17 13:19 68 18 92 Room Air 12/03/17 12:58 88 18 117/76 (90) 92 Room Air 12/03/17 12:58 88 18 92 Room Air 12/03/17 12:37 98.2 87 16 111/58 (75) 97 Result Diagram: 12/03/17 1309 12/03/17 1309 Other Results Laboratory Tests Test 12/03/17 13:09 12/03/17 13:39 12/04/17 10:21 White Blood Count 7.0 TH/MM3 Red Blood Count 4.25 MIL/MM3 Hemoglobin 13.7 GM/DL Hematocrit 40.9 % Mean Corpuscular Volume 96.4 FL Mean Corpuscular Hemoglobin 32.3 PG Mean Corpuscular Hemoglobin Concent 33.5 % Red Cell Distribution Width 12.8 % Platelet Count 165 TH/MM3 Mean Platelet Volume 7.6 FL Neutrophils (%) (Auto) 82.9 % Lymphocytes (%) (Auto) 9.6 % Monocytes (%) (Auto) 7.1 % Eosinophils (%) (Auto) 0.0 % Basophils (%) (Auto) 0.4 % Neutrophils # (Auto) 5.8 TH/MM3 Lymphocytes # (Auto) 0.7 TH/MM3 Monocytes # (Auto) 0.5 TH/MM3 Eosinophils # (Auto) 0.0 TH/MM3 Basophils # (Auto) 0.0 TH/MM3 CBC Comment DIFF FINAL Differential Comment Prothrombin Time 10.9 SEC Prothromb Time International Ratio 1.1 RATIO Activated Partial Thromboplast Time 24.3 SEC Blood Urea Nitrogen 9 MG/DL Creatinine 0.75 MG/DL Random Glucose 84 MG/DL Total Protein 6.7 GM/DL Albumin 4.4 GM/DL Calcium Level 8.8 MG/DL Alkaline Phosphatase 62 U/L Aspartate Amino Transf (AST/SGOT) 75 U/L Alanine Aminotransferase (ALT/SGPT) 54 U/L Total Bilirubin 0.9 MG/DL Sodium Level 136 MEQ/L Potassium Level 3.7 MEQ/L Chloride Level 99 MEQ/L Carbon Dioxide Level 24.6 MEQ/L Anion Gap 12 MEQ/L Estimat Glomerular Filtration Rate 75 ML/MIN Ammonia 11 MCMOL/L Total Creatine Kinase 357 U/L 258 U/L Creatine Kinase MB 18.8 NG/ML Creatine Kinase MB % 5.3 % Troponin I 0.12 NG/ML 0.16 NG/ML Urine Color YELLOW Urine Turbidity CLEAR Urine pH 7.0 Urine Specific [place] 1.008 Urine Protein TRACE mg/dL Urine Glucose (UA) NEG mg/dL Urine Ketones NEG mg/dL Urine Occult Blood MOD Urine Nitrite NEG Urine Bilirubin NEG Urine Urobilinogen 0.2 MG/DL Urine Leukocyte Esterase TRACE Urine RBC 2 /hpf Urine WBC 2 /hpf Urine Bacteria RARE /hpf Urine Hyaline Casts 2 /lpf Microscopic Urinalysis Comment CATH-CULTURE IND Imaging Last Impressions Head CT 12/03/17 1259 Signed Impressions: Service Date/Time: Sunday, December 03, 2017 14:46 - CONCLUSION: Atrophy otherwise negative Troy Mary MD FACR Chest X-Ray 12/03/17 0000 Signed Impressions: Service Date/Time: Sunday, December 03, 2017 13:12 - CONCLUSION: No acute disease. Troy Mary MD FACR Cervical Spine CT 12/03/17 0000 Signed Impressions: Service Date/Time: Sunday, December 03, 2017 14:46 - CONCLUSION: Degenerative changes, negative for fracture. Given the degree of lordosis controlled flexion-extension films could be used to exclude instability. Extensive vascular calcifications. Troy Mary MD FACR Objective Remarks General: NAD, Awake, alert Chest: CTA Cardiac: Regular Abd: +BS, soft ND/NT Ext: No edema A/P Problem List: (1) Elevated troponin ICD Codes: R74.8 - Abnormal levels of other serum enzymes Status: Acute Plan: AMS Failure to thrive/Generalized decline Elevated Cardiac enzymes - Pt is a 77 y/o WF with HTN/occasional hypotension, hyperlipidemia, CKD, stage 3, inflammatory polyarthritis, and hypothyroidism. - She was brought into the ED for altered mental status. When the pts grandson arrived home this morning the pt was very confused and standing in the kitchen without her walker or her back brace on and reported that she had fallen but its unclear when this occurred. Pt was reportedly somewhat combative which is very unusual for her. Pt is currently awake and alert and oriented to self and place. Confused about time, she reports that its 1940. - Her PCP had recently discussed with the pt and family transition to Hospice care due to weight loss/failure to thrive and generalized decline. - Pt is currently a DNR. - In the ED the pts labs were abnormal with Troponin I 0.12, CK-MB% 5.3%, total CK 357. No reported chest pain. - Hospice nurse met with the pt had family last night to discuss options. According to the Hospice nurses notes, the pts son wanted to trend troponin today - Last night the pts family did not want to pursue any aggressive workup as they do not feel the pt would be able to tolerate any procedures or interventions. - I ordered repeat CE today with a slight increase in Troponin to 0.16, CK-MB 6% - Hospice nurse to meet with the family again today - Supportive care - DVT prophylaxis with SCDs Hypertension/Hypotension - Monitor - Pt is not on any BP meds at home Glaucoma - Resume home meds Hyperlipidemia - Resume home meds Hypothyroidism - Resume home meds (2) Altered mental status, unspecified ICD Codes: R41.82 - Altered mental status, unspecified Status: Acute (3) Hypothyroidism ICD Codes: E03.9 - Hypothyroidism Status: Chronic (4) Hyperlipemia ICD Codes: E78.5 - Hyperlipemia Status: Chronic (5) Hypothyroid ICD Codes: E03.9 - Hypothyroid Status: Acute (6) Glaucoma ICD Codes: H40.9 - Glaucoma Status: Chronic Assessment and Plan Patient examined. Assessment and plan formulated with Hailey Davidson PA-C. I agree with the above. FTT. AMS resolved. possible ACS. pt wants dc to snf with hospice to follow. discussed with Hospice. plan for d/c tomorrow to snf. Problem Qualifiers (1) Altered mental status, unspecified: Qualified Codes: R41.82 - Altered mental status, unspecified Hailey Davidson December 04, 2017 11:36 Desmond Carter MD December 04, 2017 17:34
--- NOTE | 2017-12-04 13:52 | EKG ---
Date Performed: 12/03/2017 Time Performed: 13:35:48 PTAGE: 77 years EKG: Sinus rhythm MARKED LEFT AXIS DEVIATION LOW QRS VOLTAGE IN PRECORDIAL LEADS MODERATE VOLTAGE CRITERIA FOR LVH, CO NSIDER NORMAL VARIANT NONSPECIFIC T-WAVE ABNORMALITY ABNORMAL ECG INTERPRETATION BASED ON A DEFAULT A GE OF 40 YEARS PREVIOUS TRACING 09/20/2013 14.04 Since the previous tracing, no significant change noted DOCTOR: Cuate Lee Interpretating Date/Time 12/04/2017 13:51:58
[2017-12-04 20:52] VITALS: BP 109/82; PULSE 78; RESP 18; TEMP 97.9; O2SAT 92
[2017-12-04] MEDS: LATANOPROST 0.005% OPHT SOLN 2.5 ML BTL LEFT EYE SCH (21:58)
[2017-12-05 00:37] VITALS: BP 102/84; PULSE 91; RESP 17; TEMP 98; O2SAT 92
[2017-12-05 03:52] VITALS: BP 104/81; PULSE 72; RESP 17; TEMP 98; O2SAT 94
[2017-12-05] MEDS: LEVOTHYROXINE SODIUM 88 MCG TAB PO SCH (06:14)
[2017-12-05 07:41] VITALS: BP 95/66; PULSE 76; RESP 16; TEMP 98.1; O2SAT 95
[2017-12-05] MEDS ORDERED: ACET325T15 PO (10:45)
--- NOTE | 2017-12-05 10:47 | HHI.DCPOC ---
Discharge Care Plan Diagnosis: (1) Altered mental status, unspecified (2) Elevated troponin (3) Hypothyroidism (4) Hyperlipemia (5) Glaucoma (6) Hypotension Goals to Promote Your Health * To prevent worsening of your condition and complications * To maintain your health at the optimal level Directions to Meet Your Goals Take your medications as prescribed Follow your dietary instruction Follow activity as directed Keep your appointments as scheduled Take your immunizations and boosters as scheduled If your symptoms worsen call your PCP, if no PCP go to Urgent Care Center or Emergency Room Smoking is Dangerous to Your Health. Avoid second hand smoke Call the 24-hour hour crisis hotline for domestic abuse at Hailey Davidson December 05, 2017 10:47 Jovani Berger DO December 08, 2017 00:00
--- NOTE | 2017-12-05 10:51 | HHI.PR ---
Subjective Remarks Pt without any new complaints Seems to be more oriented with intermittent confusion Objective Vitals Vital Signs Date Time Temp Pulse Resp B/P (MAP) Pulse Ox O2 Delivery O2 Flow Rate FiO2 12/05/17 07:41 98.1 76 16 95/66 (76) 95 12/05/17 03:52 98.0 72 17 104/81 (89) 94 12/05/17 00:37 98.0 91 17 102/84 (90) 92 12/04/17 20:52 97.9 78 18 109/82 (91) 92 12/04/17 19:52 21 Result Diagram: 12/03/17 1309 12/03/17 1309 Other Results Laboratory Tests Test 12/03/17 13:09 12/03/17 13:39 12/04/17 10:21 White Blood Count 7.0 TH/MM3 Red Blood Count 4.25 MIL/MM3 Hemoglobin 13.7 GM/DL Hematocrit 40.9 % Mean Corpuscular Volume 96.4 FL Mean Corpuscular Hemoglobin 32.3 PG Mean Corpuscular Hemoglobin Concent 33.5 % Red Cell Distribution Width 12.8 % Platelet Count 165 TH/MM3 Mean Platelet Volume 7.6 FL Neutrophils (%) (Auto) 82.9 % Lymphocytes (%) (Auto) 9.6 % Monocytes (%) (Auto) 7.1 % Eosinophils (%) (Auto) 0.0 % Basophils (%) (Auto) 0.4 % Neutrophils # (Auto) 5.8 TH/MM3 Lymphocytes # (Auto) 0.7 TH/MM3 Monocytes # (Auto) 0.5 TH/MM3 Eosinophils # (Auto) 0.0 TH/MM3 Basophils # (Auto) 0.0 TH/MM3 CBC Comment DIFF FINAL Differential Comment Prothrombin Time 10.9 SEC Prothromb Time International Ratio 1.1 RATIO Activated Partial Thromboplast Time 24.3 SEC Blood Urea Nitrogen 9 MG/DL Creatinine 0.75 MG/DL Random Glucose 84 MG/DL Total Protein 6.7 GM/DL Albumin 4.4 GM/DL Calcium Level 8.8 MG/DL Alkaline Phosphatase 62 U/L Aspartate Amino Transf (AST/SGOT) 75 U/L Alanine Aminotransferase (ALT/SGPT) 54 U/L Total Bilirubin 0.9 MG/DL Sodium Level 136 MEQ/L Potassium Level 3.7 MEQ/L Chloride Level 99 MEQ/L Carbon Dioxide Level 24.6 MEQ/L Anion Gap 12 MEQ/L Estimat Glomerular Filtration Rate 75 ML/MIN Ammonia 11 MCMOL/L Total Creatine Kinase 357 U/L 258 U/L Creatine Kinase MB 18.8 NG/ML 15.6 NG/ML Creatine Kinase MB % 5.3 % 6.0 % Troponin I 0.12 NG/ML 0.16 NG/ML Urine Color YELLOW Urine Turbidity CLEAR Urine pH 7.0 Urine Specific [place] 1.008 Urine Protein TRACE mg/dL Urine Glucose (UA) NEG mg/dL Urine Ketones NEG mg/dL Urine Occult Blood MOD Urine Nitrite NEG Urine Bilirubin NEG Urine Urobilinogen 0.2 MG/DL Urine Leukocyte Esterase TRACE Urine RBC 2 /hpf Urine WBC 2 /hpf Urine Bacteria RARE /hpf Urine Hyaline Casts 2 /lpf Microscopic Urinalysis Comment CATH-CULTURE IND Imaging Last Impressions Head CT 12/03/17 1259 Signed Impressions: Service Date/Time: Sunday, December 03, 2017 14:46 - CONCLUSION: Atrophy otherwise negative Troy Mary MD FACR Chest X-Ray 12/03/17 0000 Signed Impressions: Service Date/Time: Sunday, December 03, 2017 13:12 - CONCLUSION: No acute disease. Troy Mary MD FACR Cervical Spine CT 12/03/17 0000 Signed Impressions: Service Date/Time: Sunday, December 03, 2017 14:46 - CONCLUSION: Degenerative changes, negative for fracture. Given the degree of lordosis controlled flexion-extension films could be used to exclude instability. Extensive vascular calcifications. Troy Mary MD FACR Objective Remarks General: NAD, Awake, alert Chest: CTA Cardiac: Regular Abd: +BS, soft ND/NT Ext: No edema A/P Problem List: (1) Elevated troponin ICD Codes: R74.8 - Abnormal levels of other serum enzymes Status: Acute Plan: AMS Failure to thrive/Generalized decline Elevated Cardiac enzymes - Pt is a 77 y/o WF with HTN/occasional hypotension, hyperlipidemia, CKD, stage 3, inflammatory polyarthritis, and hypothyroidism. - She was brought into the ED for altered mental status. When the pts grandson arrived home this morning the pt was very confused and standing in the kitchen without her walker or her back brace on and reported that she had fallen but its unclear when this occurred. Pt was reportedly somewhat combative which is very unusual for her. Pt is currently awake and alert and oriented to self and place. Confused about time, she reports that its 1940. - Her PCP had recently discussed with the pt and family transition to Hospice care due to weight loss/failure to thrive and generalized decline. - Pt is currently a DNR. - In the ED the pts labs were abnormal with Troponin I 0.12, CK-MB% 5.3%, total CK 357. No reported chest pain. - Hospice nurse met with the pt had family last night to discuss options. According to the Hospice nurses notes, the pts son wanted to trend troponin today - Last night the pts family did not want to pursue any aggressive workup as they do not feel the pt would be able to tolerate any procedures or interventions. - Repeat CE today with a slight increase in Troponin to 0.16, CK-MB 6%, pt may have had ACS - Hospice nurse has met with the family and has decided to give the pt a chance at rehab but with Hospice following. If pt deteriorates then Hospice to take over care - Supportive care - Pt to followup with her PCP, Dr. Griffin, 1 week after discharge from rehab Hypertension/Hypotension - Monitor - Pt is not on any BP meds at home Glaucoma - Resume home meds Hyperlipidemia - Resume home meds Hypothyroidism - Resume home meds (2) Altered mental status, unspecified ICD Codes: R41.82 - Altered mental status, unspecified Status: Acute (3) Hypothyroidism ICD Codes: E03.9 - Hypothyroidism Status: Chronic (4) Hyperlipemia ICD Codes: E78.5 - Hyperlipemia Status: Chronic (5) Hypothyroid ICD Codes: E03.9 - Hypothyroid Status: Acute (6) Glaucoma ICD Codes: H40.9 - Glaucoma Status: Chronic Assessment and Plan Patient examined. Assessment and plan formulated with Hailey Davidson PA-C. I agree with the above. FTT. AMS resolved. possible ACS. pt wants dc to snf with hospice to follow. discussed with Hospice. plan for d/c to snf when bed available. Problem Qualifiers (1) Altered mental status, unspecified: Qualified Codes: R41.82 - Altered mental status, unspecified Hailey Davidson December 05, 2017 10:51 Desmond Carter MD December 05, 2017 14:39
[2017-12-05] MEDS: DORZOLAMIDE/TIMOLOL OPTH SOLN 10 ML BTL LEFT EYE SCH ×2 (11:04→21:05)
[2017-12-05] MEDS: HYDROXYCHLOROQUINE SULFATE 200 MG TAB PO SCH ×2 (11:05→21:06)
[2017-12-05] MEDS: CLOPIDOGREL 75 MG TAB PO SCH (11:07)
[2017-12-05 12:45] VITALS: O2SAT 94
[2017-12-05 17:31] VITALS: BP 127/80; PULSE 68; RESP 16; TEMP 98.9; O2SAT 96
[2017-12-05 20:58] VITALS: BP 130/91; PULSE 78; RESP 16; TEMP 97.9; O2SAT 92
[2017-12-05] MEDS: LATANOPROST 0.005% OPHT SOLN 2.5 ML BTL LEFT EYE SCH (21:05)
[2017-12-06 00:30] VITALS: BP 95/64; PULSE 74; RESP 16; TEMP 97.6; O2SAT 94
[2017-12-06 04:35] VITALS: BP 107/73; PULSE 77; RESP 16; TEMP 97.3; O2SAT 97
[2017-12-06] MEDS: LEVOTHYROXINE SODIUM 88 MCG TAB PO SCH (06:27)
--- NOTE | 2017-12-06 08:11 | HHI.PR ---
Subjective Remarks No changes overnight No new complaints Objective Vitals Vital Signs Date Time Temp Pulse Resp B/P (MAP) Pulse Ox O2 Delivery O2 Flow Rate FiO2 12/06/17 04:35 97.3 77 16 107/73 (84) 97 12/06/17 00:30 97.6 74 16 95/64 (74) 94 12/05/17 20:58 97.9 78 16 130/91 (104) 92 12/05/17 19:26 3.00 12/05/17 17:31 98.9 68 16 127/80 (96) 96 12/05/17 12:45 94 Nasal Cannula 2.00 12/05/17 12:45 3.00 Result Diagram: 12/03/17 1309 12/03/17 1309 Other Results Laboratory Tests Test 12/04/17 10:21 Total Creatine Kinase 258 U/L Creatine Kinase MB 15.6 NG/ML Creatine Kinase MB % 6.0 % Troponin I 0.16 NG/ML Imaging Last Impressions Head CT 12/03/17 1259 Signed Impressions: Service Date/Time: Sunday, December 03, 2017 14:46 - CONCLUSION: Atrophy otherwise negative Troy Mary MD FACR Chest X-Ray 12/03/17 0000 Signed Impressions: Service Date/Time: Sunday, December 03, 2017 13:12 - CONCLUSION: No acute disease. Troy Mary MD FACR Cervical Spine CT 12/03/17 0000 Signed Impressions: Service Date/Time: Sunday, December 03, 2017 14:46 - CONCLUSION: Degenerative changes, negative for fracture. Given the degree of lordosis controlled flexion-extension films could be used to exclude instability. Extensive vascular calcifications. Troy Mary MD FACR Objective Remarks General: NAD, Awake, alert Chest: CTA Cardiac: Regular Abd: +BS, soft ND/NT Ext: No edema A/P Problem List: (1) Elevated troponin ICD Codes: R74.8 - Abnormal levels of other serum enzymes Status: Acute Plan: AMS Failure to thrive/Generalized decline Elevated Cardiac enzymes - Pt is a 77 y/o WF with HTN/occasional hypotension, hyperlipidemia, CKD, stage 3, inflammatory polyarthritis, and hypothyroidism. - She was brought into the ED for altered mental status. When the pts grandson arrived home this morning the pt was very confused and standing in the kitchen without her walker or her back brace on and reported that she had fallen but its unclear when this occurred. Pt was reportedly somewhat combative which is very unusual for her. Pt is currently awake and alert and oriented to self and place. Confused about time, she reports that its 1940. - Her PCP had recently discussed with the pt and family transition to Hospice care due to weight loss/failure to thrive and generalized decline. - Pt is currently a DNR. - In the ED the pts labs were abnormal with Troponin I 0.12, CK-MB% 5.3%, total CK 357. No reported chest pain. - Hospice nurse met with the pt had family last night to discuss options. According to the Hospice nurses notes, the pts son wanted to trend troponin today - Last night the pts family did not want to pursue any aggressive workup as they do not feel the pt would be able to tolerate any procedures or interventions. - Repeat CE today with a slight increase in Troponin to 0.16, CK-MB 6%, pt may have had ACS - Hospice nurse has met with the family and has decided to give the pt a chance at rehab but with Hospice following. If pt deteriorates then Hospice to take over care - Pt discharged on 12/05/17. Awaiting family to pick SNF and to arrange placement. - Pt to followup with her PCP, Dr. Griffin, 1 week after discharge from rehab Hypertension/Hypotension - Monitor - Pt is not on any BP meds at home Glaucoma - Resume home meds Hyperlipidemia - Resume home meds Hypothyroidism - Resume home meds (2) Altered mental status, unspecified ICD Codes: R41.82 - Altered mental status, unspecified Status: Acute (3) Hypothyroidism ICD Codes: E03.9 - Hypothyroidism Status: Chronic (4) Hyperlipemia ICD Codes: E78.5 - Hyperlipemia Status: Chronic (5) Hypothyroid ICD Codes: E03.9 - Hypothyroid Status: Acute (6) Glaucoma ICD Codes: H40.9 - Glaucoma Status: Chronic Assessment and Plan Patient examined. Assessment and plan formulated with Hailey Davidson PA-C. I agree with the above. FTT. AMS resolved. possible ACS. pt wants dc to snf with hospice to follow. discussed with Hospice. plan for d/c to snf when bed available. Problem Qualifiers (1) Altered mental status, unspecified: Qualified Codes: R41.82 - Altered mental status, unspecified Hailey Davidson December 06, 2017 08:11 Jovani Berger DO December 07, 2017 23:59
[2017-12-06 08:49] VITALS: BP 110/72; PULSE 75; RESP 18; TEMP 97.6; O2SAT 96
[2017-12-06] MEDS: DORZOLAMIDE/TIMOLOL OPTH SOLN 10 ML BTL LEFT EYE SCH (10:27)
[2017-12-06] MEDS: HYDROXYCHLOROQUINE SULFATE 200 MG TAB PO SCH (10:29)
[2017-12-06] MEDS: CLOPIDOGREL 75 MG TAB PO SCH (10:29)
[2017-12-06 11:30] VITALS: BP 118/80; PULSE 75; RESP 18; TEMP 98.7; O2SAT 95
[2017-12-06 16:25] VITALS: BP 119/85; PULSE 81; RESP 16; TEMP 97.5; O2SAT 93
--- NOTE | 2017-12-08 | HHI.DS ---
Discharge Summary Admission Date December 03, 2017 at 16:11 Admitting Diagnosis Altered mental status, elevated troponin (1) Elevated troponin ICD Codes: R74.8 - Abnormal levels of other serum enzymes Status: Acute (2) Altered mental status, unspecified ICD Codes: R41.82 - Altered mental status, unspecified Status: Acute (3) Hypothyroidism ICD Codes: E03.9 - Hypothyroidism Status: Chronic (4) Hyperlipemia ICD Codes: E78.5 - Hyperlipemia Status: Chronic (5) Hypothyroid ICD Codes: E03.9 - Hypothyroid Status: Acute (6) Glaucoma ICD Codes: H40.9 - Glaucoma Status: Chronic Brief History Mrs. Dye is a pleasant 77 y/o WF with HTN/occasional hypotension, hyperlipidemia, CKD, stage 3, inflammatory polyarthritis, and hypothyroidism. She was brought into the ED for altered mental status. When the pts grandson arrived home this morning the pt was very confused and standing in the kitchen without her walker or her back brace on and reported that she had fallen but its unclear when this occurred. Pt was reportedly somewhat combative which is very unusual for her. Pt is currently awake and alert and oriented to self and place. Confused about time, she reports that its 1940. She is pleasant and conversive. Pt denies any pain any where, denies any fevers or chills, back pain , dizziness. Pt is unable to tell us any of what happened last night. Pt has more recently had weight loss and poor oral intake. Her PCP had recently discussed with the pt and family transition to Hospice care due to weight loss/failure to thrive and generalized decline. Pt is currently a DNR. Pts family at the bedside feels that since having the discussion with her PCP about Hospice that the pt has been "frazzled" and somewhat more erratic or confused. In the ED the pts labs were abnormal with Troponin I 0.12, CK-MB% 5.3%, total CK 357. Pt denies any chest pain. Her family states that they had noticed more recently that the pt would seem winded when ambulating around the house but denies any cough, congestion, palpitations, dizziness or unilateral weakness. Discussed with the pt Hospice services and she and the family would like to meet with Hospice to discuss options. They do not want to pursue any aggressive workup as they do not feel the pt would be able to tolerate any procedures or interventions. PE at Discharge General: NAD, Awake, alert Chest: CTA Cardiac: Regular Abd: +BS, soft ND/NT Ext: No edema Pt Condition on Discharge: Stable Discharge Disposition: Discharge to SNF Discharge Instructions DIET: Follow Instructions for: Heart Healthy Diet Activities you can perform: Regular-No Restrictions Jovani Berger DO December 08, 2017 00:00
== END 2017-12-06 17:06 ==
LOC: NEPE 12:31 → NEDA 16:11 → NEPFCDU 17:34
PROVIDERS: ADMIT Hospitalist; ATTEND Hospitalist
DX: R41.82 Altered mental status, unspecified (principal); R74.8 Abnormal levels of other serum enzymes; E03.9 Hypothyroidism, unspecified; E78.5 Hyperlipidemia, unspecified; E78.00 Pure hypercholesterolemia, unspecified; H40.9 Unspecified glaucoma; I12.9 Hypertensive chronic kidney disease with stage 1 through stage 4 chronic kidney disease, or unspecified chronic kidney disease; N18.3 Chronic kidney disease, stage 3 (moderate); I25.10 Atherosclerotic heart disease of native coronary artery without angina pectoris; R94.31 Abnormal electrocardiogram [ECG] [EKG]; M06.4 Inflammatory polyarthropathy; R62.7 Adult failure to thrive; M85.80 Other specified disorders of bone density and structure, unspecified site; Z79.02 Long term (current) use of antithrombotics/antiplatelets; Z79.82 Long term (current) use of aspirin; Z87.891 Personal history of nicotine dependence; Z86.73 Personal history of transient ischemic attack (TIA), and cerebral infarction without residual deficits
CPT/HCPCS: 70450; 71045; 72040; 72125; 80053; 81001; 82140; 82550; 82552; 84484; 85025; 85610; 85730; 87086; 93005; 94618; 97163; 99285; G0378; G8987; G8988

== ENCOUNTER 2017-12-08 01:21 | Emergency (ER) | payer MEDICARE, MEDICAID ==
[~2017-12-08] VITALS: Ht 137.2 cm; Wt 36.0 kg
[~2017-12-08 01:21] MED LIST changes: +ACET325T15 PO; -CIPR0.3S2 RIGHT EYE; -DOXY1CAP74 PO; -HYDR-3516 PO; -SENN1TAB PO; -VALT500T PO
[2017-12-08 01:30] VITALS: BP 100/70; PULSE 91; RESP 20; TEMP 98; O2SAT 95
--- NOTE | 2017-12-08 01:31 | PD ---
HPI Chief Complaint: Fall Time Seen by Provider: 01:30 Travel History International Travel<30 days: No Contact w/Intl Traveler<30days: No History of Present Illness HPI Patient 77-year-old female presents emergency department for evaluation of head injury after a fall. Per EMS the patient's roommate at her half-way noted that she was getting up to go to the bathroom apparently had a slip and fall falling backwards and hitting her head. Patient significantly confused on arrival apparently at her neurologic baseline. Per EMS she was ambulatory after the event but according to their policy had to be transported for evaluation. Patient has no complaints at this time, she is pleasantly confused. She denies any chest pain shortness of breath abdominal pain nausea vomiting. PFSH Past Medical History Hx Anticoagulant Therapy: Yes (PLAVIX AND ASA) Arthritis: Yes (HX R/A) Anxiety: No Depression: No Cancer: No Cardiovascular Problems: No High Cholesterol: Yes Cerebrovascular Accident: Yes (TIA X1) Coronary Artery Disease: Yes Diabetes: No Diminished Hearing: No Endocrine: Yes Glaucoma: Yes Genitourinary: No Hepatitis: No Hiatal Hernia: No Hypertension: No Immune Disorder: No Kidney Stones: No Musculoskeletal: Yes Neurologic: No Psychiatric: No Reproductive: No Respiratory: No Renal Failure: No Thyroid Disease: Yes Menopausal: Yes Past Surgical History Abdominal Surgery: No Cardiac Surgery: No Ear Surgery: No Endocrine Surgery: Yes (THYROIDECTOMY 48 YEARS AGO) Eye Surgery: Yes (bilat eyes- cataracts ) Genitourinary Surgery: No Gynecologic Surgery: No Oral Surgery: Yes Pacemaker: No Thoracic Surgery: No Tonsillectomy: Yes Other Surgery: Yes (PELVIC FX 2016) Social History Alcohol Use: No Tobacco Use: No (QUIT 20 YRS AGO SMOKED FOR 35 YRS 1 08/03 PPD) Substance Use: No Allergies-Medications (Allergen,Severity, Reaction): Coded Allergies: Sulfa (Sulfonamide Antibiotics) (Unverified Allergy, Severe, hives, 12/08/17 ) atorvastatin (Unverified Allergy, Severe, RASH, 12/08/17) levofloxacin (Unverified Allergy, Severe, NAUSEA, AND BLOOD PRESSURE DROPS , 12/08/17) penicillin G (Unverified Allergy, Severe, hives, 12/08/17) Reported Meds & Prescriptions Reported Meds & Active Scripts Active Eq Acetaminophen (Acetaminophen) 325 Mg Tab 650 Mg PO Q4H PRN 14 Days Dok (Docusate Sodium) 100 Mg Cap 100 Mg PO BID 7 Days Reported K-Tab (Potassium Chloride) 10 Meq Tab 10 Meq PO DAILY Plavix (Clopidogrel Bisulfate) 75 Mg Tab 75 Mg PO DAILY Levothyroxine (Levothyroxine Sodium) 88 Mcg Tab 88 Mcg PO DAILY Simvastatin 80 Mg Tab 80 Mg PO DAILY Plaquenil (Hydroxychloroquine Sulfate) 200 Mg Tab 200 Mg PO BID Take with food Restasis Opth (Cyclosporine Opth) 0.05% Emul 1 Drop LEFT EYE BID Latanoprost Opth Drops (Latanoprost) 0.005% Drops 1 Drop LEFT EYE HS Refrigerate until opened. Dorzolamide-Timolol Opth Drops 22.3-6.8 Mg/Ml Soln 1 Drop LEFT EYE BID Review of Systems ROS Limitations: Altered Mental Status (Dementia) Physical Exam Narrative GENERAL: Well-developed well-nourished, pleasantly confused in no obvious distress SKIN: Focused skin assessment warm/dry. HEAD: Atraumatic. Normocephalic. No evans signs no raccoons eyes, I do not see any hematoma peer EYES: Pupils equal and round. No scleral icterus. No injection or drainage. ENT: No nasal bleeding or discharge. Mucous membranes pink and moist. NECK: Trachea midline. No JVD. CARDIOVASCULAR: Regular rate and rhythm. No murmur appreciated. RESPIRATORY: No accessory muscle use. Clear to auscultation. Breath sounds equal bilaterally. GASTROINTESTINAL: Abdomen soft, non-tender, nondistended. Hepatic and splenic margins not palpable. MUSCULOSKELETAL: No obvious deformities. No clubbing. No cyanosis. No edema. Extremities are atraumatic, no midline CT or L-spine tenderness. Pulse motor and sensory intact distally in all 4 extremity NEUROLOGICAL: Awake and alert. No obvious cranial nerve deficits. Motor grossly within normal limits. Normal speech. PSYCHIATRIC: Appropriate mood and affect; insight and judgment normal. Data Data Last Documented VS Vital Signs Date Time Temp Pulse Resp B/P (MAP) Pulse Ox O2 Delivery O2 Flow Rate FiO2 12/08/17 08:16 76 16 94/54 (67) 95 Nasal Cannula 2.00 12/08/17 01:[address] Brain W/O Iv Contrast(Rout) (12/08/17 ) Ct Cerv Spine W/O Contrast (12/08/17 ) Ed Discharge Order (12/08/17 02:46) [facility] Medical Decision Making Medical Screen Exam Complete: Yes Emergency Medical Condition: Yes Differential Diagnosis Closed head injury, neck injury, fall Narrative Course Patient room to the emergency department, hemodynamically stable appears to have a low impact trauma. Last [address] 12/08/17 0000 Signed Impressions: Service Date/Time: Friday, December 08, 2017 01:51 - CONCLUSION: No acute disease. John Sheehan MD Cervical Spine CT 12/08/17 0000 Signed Impressions: Service Date/Time: Friday, December 08, 2017 01:51 - CONCLUSION: Normal examination. Moderate intervertebral disc space narrowing at the C5-6 level. John Sheehan MD Sleeping soundly on reassessment, easily aroused. She is stable for discharge Diagnosis Primary Impression: Closed head injury Patient Instructions: Fall Prevention (DC), General Instructions Disposition: 03 DISCHARGE TO SNF Condition: Stable Hua Shepherd MD December 08, 2017 01:31
[2017-12-08 01:37] VITALS: BP 101/69; PULSE 88; RESP 20; TEMP 97.7; O2SAT 96
--- NOTE | 2017-12-08 02:34 | RADRPT ---
EXAM DATE/TIME: 12/08/2017 01:51 [facility] COMPARISON: No previous studies available for comparison. INDICATIONS : Trauma, fall. Hit posterior head. RADIATION DOSE: 56.35 CTDIvol (mGy) MEDICAL HISTORY : Cardiovascular disease. Stroke SURGICAL HISTORY : None. ENCOUNTER: Initial ACUITY: 1 day PAIN SCALE: 6/10 LOCATION: cranial TECHNIQUE: Multiple contiguous axial images were obtained of the head. Using automated exposure control and adj ustment of the mA and/or kV according to patient size, radiation dose was kept as low as reasonably a chievable to obtain optimal diagnostic quality images. DICOM format image data is available electro nically for review and comparison. FINDINGS: There is marked central and cortical atrophy with dilatation of ventricular and sulcal spaces. There is no parenchymal hemorrhage, acute infarction or mass lesion identified. There are no extra-axial fluid collections appreciated. The posterior fossa is unremarkable with midline fourth ventricle. T he portion of the orbits and paranasal sinuses visualized are unremarkable. CONCLUSION: No acute disease. John Sheehan MD on December 08, 2017 at 2:32 Board Certified Radiologist. This report was verified electronically.
--- NOTE | 2017-12-08 02:35 | RADRPT ---
EXAM DATE/TIME: 12/08/2017 01:51 [facility] COMPARISON: CT CERVICAL SPINE W/O CONTRAST, December 03, 2017, 14:46. INDICATIONS : Trauma, fall. Hit posterior head. RADIATION DOSE: 10.68 CTDIvol (mGy) MEDICAL HISTORY : Stroke. Cardiovascular disease SURGICAL HISTORY : None. ENCOUNTER: Initial ACUITY: 1 day PAIN SCALE: 0/10 LOCATION: neck TECHNIQUE: Volumetric scanning of the cervical spine was performed. Multiplanar reconstructions in the sagittal, coronal and oblique axial planes were performed. Using automated exposure control and adjustment o f the mA and/or kV according to patient size, radiation dose was kept as low as reasonably achievable to obtain optimal diagnostic quality images. DICOM format image data is available electronically f or review and comparison. FINDINGS: VERTEBRAE: Normal vertebral body height. ALIGNMENT: No evidence of subluxation. C2-C3: The bony spinal canal is normal in size. No evidence of disc bulge or herniation. The neural forami na are bilaterally patent. C3-C4: The bony spinal canal is normal in size. No evidence of disc bulge or herniation. The neural forami na are bilaterally patent. C4-C5: The bony spinal canal is normal in size. No evidence of disc bulge or herniation. The neural forami na are bilaterally patent. C5-C6: The bony spinal canal is normal in size. No evidence of disc bulge or herniation. The neural forami na are bilaterally patent. C6-C7: The bony spinal canal is normal in size. No evidence of disc bulge or herniation. The neural forami na are bilaterally patent. C7-T1: The bony spinal canal is normal in size. No evidence of disc bulge or herniation. The neural forami na are bilaterally patent. CONCLUSION: Normal examination. Moderate intervertebral disc space narrowing at the C5-6 level. John Sheehan MD on December 08, 2017 at 2:33 Board Certified Radiologist. This report was verified electronically.
[2017-12-08 08:16] VITALS: BP 94/54; PULSE 76; RESP 16; O2SAT 95
== END 2017-12-08 10:01 ==
LOC: NEPC 01:21
DX: S09.90XA Unspecified injury of head, initial encounter (principal); W01.0XXA Fall on same level from slipping, tripping and stumbling without subsequent striking against object, initial encounter; Y93.89 Activity, other specified; Y92.129 Unspecified place in nursing home as the place of occurrence of the external cause
CPT/HCPCS: 70450; 72125; 99283

== ENCOUNTER 2018-04-19 00:35 | Inpatient (IN) ==
[2018-04-19] MEDS ORDERED: Heparin 10,000 UNITS/10 ML Vial (for IV use) IV.PUSH STA (00:47)
[2018-04-19] MEDS ORDERED: Vancomycin Inj 1 GM/200 ML PIGGYBACK IV.SIG ONE (00:54)
[2018-04-19] MEDS ORDERED: Sodium Chlor 0.9% Inj 500 ML IV.SIG ONE (00:54)
[2018-04-19] MEDS ORDERED: Sod Chloride 0.9% Inj 1,000 ML IV.SIG SCH (01:00)
[2018-04-19 01:01] LABS: Baso % (Auto) 0.4 % (0.0-2.0); Eos % (Auto) 0.2 % (0.0-4.0); Hematocrit 29.8 % (35.0-46.0); Hemoglobin 9.9 gm/dL (11.6-15.3); Lymph # (Auto) 0.5 th/mm3 (1.0-4.8); Lymph % (Auto) 6.8 % (9.0-44.0); Mean Corpuscular HGB Conc 33.3 % (32.0-36.0); Mean Corpuscular Hemoglobin 31.6 pg (27.0-34.0); Mean Corpuscular Volume 94.9 fL (80.0-100.0); Mean Platelet Volume 7.5 fL (7.0-11.0); Mono # (Auto) 0.6 th/mm3 (0.0-0.9); Mono % (Auto) 8.7 % (0.0-8.0); Neut % (Auto) 83.9 % (16.0-70.0); Platelet Count 159 th/mm3 (150-450); Red Blood Count 3.14 mil/mm3 (4.00-5.30); Red Cell Distribution Width 12.5 % (11.6-17.2); White Blood Count 7.1 th/mm3 (4.0-11.0)
--- NOTE | 2018-04-19 01:03 | ED ---
HPI General Chief complaint: STEMI Alert Stated complaint: STEMI Time Seen by Provider: 04/19/18 00:47 Source: patient Mode of arrival: EMS Limitations: no limitations History of Present Illness HPI narrative: The patient is a 77 year old female who presents to the [facility] emergency department with a history of sudden onset of dyspnea that was noted at her longterm at shift change at approximately 11 PM. The patient reports that she has had a cough that began earlier today and has been productive of white sputum. According to ambulance services that brought the patient in, the patient is on 2-3 L nasal cannula O2 continuously. Ambulance services report that the patient was going to be started on antibiotic for the cough, however this had not been done yet. The patient does have a chronic indwelling Li catheter with cloudy urine. Ambulance services did an EKG prior to arrival that showed ST segment elevation in the inferior leads and a STEMI alert was called on the patient prior to arrival. The patient denies having any chest pain. The patient was placed on a nonrebreather mask prior to arrival and reports improvement in her shortness of breath. The patient arrives awake and alert and oriented. According to the record, the patient is DNR. I did discuss this further at the bedside with the patient. She confirms that she would not want to be intubated or placed on a ventilator. She also confirms that she would not want chest compressions. When I discussed with her the possibility of a cardiac catheterization, the patient again reports that she would like to avoid any invasive procedures. The patient is noted on examination to have swelling and erythema to the left lower extremity. She is unsure of the timeframe that this is been going on. She reports that she believes that it is been present previously. Related Data Home Medications Medication Instructions Recorded Confirmed acetaminophen [Tylenol] 650 mg PO Q4H PRN 04/19/18 04/19/18 clopidogrel [Plavix] 75 mg PO DAILY 04/19/18 04/19/18 cyclosporine [Restasis] 1 drp OPHTHALMIC (EYE) Q12H 04/19/18 04/19/18 docusate sodium [Colace] 100 mg PO BID 04/19/18 04/19/18 hydroxychloroquine [Plaquenil] 200 mg PO BID 04/19/18 04/19/18 latanoprost 1 drp OPHTHALMIC (EYE) QPM 04/19/18 04/19/18 levothyroxine 88 mcg PO DAILY 04/19/18 04/19/18 mirtazapine 15 mg PO DAILY 04/19/18 04/19/18 potassium chloride 10 meq PO DAILY 04/19/18 04/19/18 simvastatin 40 mg PO QPM 04/19/18 04/19/18 Allergies Allergy/AdvReac Type Severity Reaction Status Date / Time atorvastatin Allergy Severe RASH Verified 04/19/18 00:42 levofloxacin Allergy Severe NAUSEA, Verified 04/19/18 00:42 AND BLOOD PRESSURE DROPS penicillin G Allergy Severe hives Verified 04/19/18 00:42 Sulfa (Sulfonamide Allergy Severe hives Verified 04/19/18 00:42 Antibiotics) Review of Systems ROS: all other systems reviewed are negative [facility] Medical History Medical History Hypothyroidism (Acute) Rheumatoid arthritis (Acute) Social History Social History Substance History: No History of Abuse Smoking Status: Former smoker Tobacco Type: Cigarettes How Often Do You Have a Drink Containing Alcohol: Never Recent Travel in [place] within the Last 8 Weeks: No Recent Out of Country Travel within the Last 8 Weeks: No Immunization History Tetanus Immunization: Unsure Exam Const General: cooperative, acute distress mild and respiratory and frail appearing Nutritional Appearance: thin Orientation: alert, awake and oriented x3 HENMT Head: normocephalic and atraumatic Nose: no nasal discharge and no epistaxis Mouth: moist mucous membranes Throat: posterior oropharynx normal and uvula midline Eyes Sclera: normal sclerae Pupils: PERRL Neck Neck: no meningeal signs, trachea midline and no JVD Resp Effort & Inspection: no use of accessory muscles Auscultation: other (Decreased breath sounds in bilateral lung bases, scattered rhonchi and crackles that improve with coughing.) Cardio Rate: regular rate Rhythm: regular rhythm Heart Sounds: no gallops, no murmurs and no rubs GI Inspection: non-distended Palpation: soft, no hepatosplenomegaly and nontender Auscultation: normal bowel sounds Back/Spine/Pelvis Back: no CVA tenderness Skin General: dry skin (warm) Neuro General: alert, awake, oriented x3 and other (Grossly nonfocal. The patient has generalized weakness.) Speech: speech normal Motor: no movement abnormalities noted Extrem General: normal to inspection, no clubbing, no cyanosis and edema (Trace edema on the right, 1+ on the left with erythema of the foot, ankle, distal leg on the left side. The patient denies having any pain associated with this. There is increased warmth on palpation.) Psych Mood: congruent mood Affect: normal affect Judgment: judgment good Course Consultations Consultation #1: The patient's case including history, pertinent physical examination findings, and laboratory studies were discussed with Dr. Jett, the porter head on arrival of the patient when evidence of STEMI was noted. However , I explained to him that the patient is DNR and does not want a cardiac catheterization. He recommended Heparin, aspirin. Consultation #2: The patient's case including history, pertinent physical examination findings, and laboratory studies were discussed with Dr. Phelan. It was agreed that the patient would be admitted to the mincing machine operator's service. Initial Documented Vital Signs Temperature 97.5 F L 04/19/18 00:37 Pulse Rate 89 04/19/18 00:37 Respiratory Rate 21 04/19/18 00:37 Blood Pressure 93/62 L 04/19/18 00:37 Pulse Oximetry 100 04/19/18 00:37 Last Documented Vital Signs Temperature 97.5 F L 04/19/18 00:37 Pulse Rate 125 H 04/19/18 03:45 Respiratory Rate 19 04/19/18 03:45 Blood Pressure 82/62 L 04/19/18 03:45 Pulse Oximetry 96 04/19/18 01:55 Critical Care Time Critical Care Time: Yes Total Critical Care Time: 38 Attestation: Aggregate critical care time was 38 minutes. Time to perform other separately billable procedures was not included in the critical care time. My time did not include minutes spent treating any other patients simultaneously or on activities that did not directly contribute to the patient's treatment. The services I provided to this patient were to treat and/or prevent clinically significant deterioration that could result in: Cardiovascular collapse, versus cardiac arrhythmia, versus respiratory failure from pulmonary edema I provided critical care services requiring my management, as noted below: Chart data review, documentation time, medication orders and management, vital sign assessments/reviewing monitor data, ordering and reviewing lab tests, ordering and interpreting/reviewing x-rays and diagnostic studies, care of the patient and discussion of the patient with the admitting physicians. Medical Decision Making MDM Narrative Medical decision making narrative: During the course of the patient's emergency department visit, the patient's history, examination, and differential diagnosis were reviewed with the patient. The patient was placed on a patient monitor with oximetry and frequent blood pressure monitoring. The patient had IV access obtained and blood work sent for analysis. An EKG was done on arrival that shows a heart rate of 88, ST segment elevation in inferior leads, 2 , 3, aVF with downsloping ST segments in aVL consistent with an acute MA. The patient confirms that she is DNR and would not want to have cardiac catheterization done at this time. I did speak to Dr. Jett, the STEMI alert DrLyssa long distance operator at 12:49 a.m. regarding this patient's case. As the patient's blood pressure is low he agrees that nitroglycerin should be held. He agrees that the patient should receive an aspirin. Patient did receive aspirin 324 mg p.o. 1 prior to arrival by ambulance services. He also requested the patient be started on heparin. The patient will undergo further workup regarding the hypotension as certainly patient could be septic given the patient's cloudy urine, chronic indwelling Li catheter, cellulitic appearing right lower extremity, and productive sounding cough. The patient will be started on broad-spectrum antibiotic coverage of Azactam, Flagyl, vancomycin given her penicillin allergy. The patient was initially provided heparin per [facility] protocol, normal saline a 500 mL bolus 1. The patient was continued on supplemental nasal cannula O2. An i-STAT with creatinine was done. The patient's i-STAT reveals a creatinine of 1.1, sodium 128, potassium 4.9, chloride 95, BUN 21, glucose 120, hemoglobin 9.5. The patient's blood pressure continued to fall in spite of an initial fluid bolus. The patient had evidence of fluid overload on her chest x-ray with an elevated BNP at 2479. The patient needed diuresis, however her blood pressure was too low to allow for this. I did discuss the patient's case with the mincing machine operator on-call, Dr. Phelan. He recommended starting dopamine and then dividing Lasix for diuresis. The patient's initial troponin I is 0.24, CPK 220 with an MB percent of 5.8. The patient has a white count of 7.1 with a neutrophil predominance of 83.9, platelet count 159. The patient's results were discussed with the patient, including the plan of care. I explained that further testing and/ or monitoring is indicated based on the patient's history, examination, and/ or laboratory findings. Therefore, I recommended admission for additional evaluation. The patient expressed understanding and was agreeable with this plan. The patient was admitted to the hospital in critical condition and sent to a bed under the care of the mincing machine operator. Medical Screen Exam Complete: Yes Emergency Medical Condition: Yes Differential Diagnosis Differential Diagnosis: Differential diagnosis in this patient includes acute coronary syndrome, versus sepsis with increased cardiac demand, versus pneumonia , versus congestive heart failure Medical Records Medical records reviewed: Yes I reviewed the patient's medical records. Lab Data Lab results reviewed: Yes I reviewed the patient's lab results. Result diagrams: 04/19/18 00:51 Lab Results 04/19/18 04/19/18 04/19/18 Range/Units 00:51 00:51 00:51 WBC 7.1 (4.0-11.0) th/mm3 RBC 3.14 L (4.00-5.30) mil/mm3 Hgb 9.9 L (11.6-15.3) gm/dL POC Hgb (Calc) 9.5 L (11.6-15.3) g/dL Hct 29.8 L (35.0-46.0) % POC Hct 28.0 L (35-46.0) % MCV 94.9 (80.0-100.0) fL MCH 31.6 (27.0-34.0) pg MCHC 33.3 (32.0-36.0) % RDW 12.5 (11.6-17.2) % Plt Count 159 (150-450) th/mm3 MPV 7.5 (7.0-11.0) fL Neut % (Auto) 83.9 H (16.0-70.0) % Lymph % (Auto) 6.8 L (9.0-44.0) % [place] % (Auto) 8.7 H (0.0-8.0) % Eos % (Auto) 0.2 (0.0-4.0) % Baso % (Auto) 0.4 (0.0-2.0) % Neut # (Auto) 6.0 (1.8-7.7) th/mm3 Lymph # (Auto) 0.5 L (1.0-4.8) th/mm3 [place] # (Auto) 0.6 (0.0-0.9) th/mm3 Eos # (Auto) 0.0 (0.0-0.4) th/mm3 Baso # (Auto) 0.0 (0.0-0.2) th/mm3 WBC Differential . Differential Comment Auto diff final PT 11.5 (9.8-11.6) sec INR 1.1 Ratio APTT 23.6 L (24.3-30.1) sec POC Sodium 128 L (137-144) mmol/L POC Potassium 4.9 (3.6-5.0) mmol/L POC Chloride 95 L (102-111) mmol/L POC BUN 21 (5-21) mg/dL POC Creatinine 1.1 (0.6-1.3) mg/dL POC Glucose 120 H (68-110) mg/dL Lactic Acid (0.4-2.0) mmol/L Calcium 7.3 L* (8.5-10.1) mg/dL Magnesium 1.9 (1.5-2.5) mg/dL Total Creatine Kinase 220 H (26-192) U/L CK-MB (CK-2) 12.7 H (0.5-3.6) ng/mL CK-MB (CK-2) % 5.8 H* (0.0-4.0) % Troponin I 0.24 H (0.02-0.05) ng/mL B-Natriuretic Peptide (0-100) pg/mL Urine Color (Yellw/Straw) Urine Clarity (Clear) Urine pH (5.0-8.5) Ur Specific Balm (1.002-1.035) Urine Protein (Neg-Trace) mg/dL Urine Glucose (UA) (Negative) mg/dL Urine Ketones (Negative) mg/dL Urine Occult Blood (Negative) Urine Nitrate (Negative) Urine Bilirubin (Negative) Urine Urobilinogen (Less than 2) mg/dL Ur Leukocyte Esterase (Negative) Urine RBC (0-3) /hpf Urine WBC (0-5) /hpf Urine WBC Clumps (None) Urine Bacteria (None) /hpf Urine Mucus (Occasional) /lpf Micro UA Comment Ur Microscopic Review Urine Culture Comments 04/19/18 04/19/18 04/19/18 Range/Units 00:51 01:05 01:15 WBC (4.0-11.0) th/mm3 RBC (4.00-5.30) mil/mm3 Hgb (11.6-15.3) gm/dL POC Hgb (Calc) (11.6-15.3) g/dL Hct (35.0-46.0) % POC Hct (35-46.0) % MCV (80.0-100.0) fL MCH (27.0-34.0) pg MCHC (32.0-36.0) % RDW (11.6-17.2) % Plt Count (150-450) th/mm3 MPV (7.0-11.0) fL Neut % (Auto) (16.0-70.0) % Lymph % (Auto) (9.0-44.0) % [place] % (Auto) (0.0-8.0) % Eos % (Auto) (0.0-4.0) % Baso % (Auto) (0.0-2.0) % Neut # (Auto) (1.8-7.7) th/mm3 Lymph # (Auto) (1.0-4.8) th/mm3 [place] # (Auto) (0.0-0.9) th/mm3 Eos # (Auto) (0.0-0.4) th/mm3 Baso # (Auto) (0.0-0.2) th/mm3 WBC Differential Differential Comment PT (9.8-11.6) sec INR Ratio APTT (24.3-30.1) sec POC Sodium (137-144) mmol/L POC Potassium (3.6-5.0) mmol/L POC Chloride (102-111) mmol/L POC BUN (5-21) mg/dL POC Creatinine (0.6-1.3) mg/dL POC Glucose (68-110) mg/dL Lactic Acid 1.1 (0.4-2.0) mmol/L Calcium (8.5-10.1) mg/dL Magnesium (1.5-2.5) mg/dL Total Creatine Kinase (26-192) U/L CK-MB (CK-2) (0.5-3.6) ng/mL CK-MB (CK-2) % (0.0-4.0) % Troponin I (0.02-0.05) ng/mL B-Natriuretic Peptide 2479 H (0-100) pg/mL Urine Color Yellow (Yellw/Straw) Urine Clarity Turbid H (Clear) Urine pH 6.0 (5.0-8.5) Ur Specific Balm 1.010 (1.002-1.035) Urine Protein 100 H (Neg-Trace) mg/dL Urine Glucose (UA) Negative (Negative) mg/dL Urine Ketones Negative (Negative) mg/dL Urine Occult Blood Moderate H (Negative) Urine Nitrate Negative (Negative) Urine Bilirubin Negative (Negative) Urine Urobilinogen Less than 2 (Less than 2) mg/dL Ur Leukocyte Esterase Large H (Negative) Urine RBC 29 H (0-3) /hpf Urine WBC (0-5) /hpf Urine WBC Clumps Many H (None) Urine Bacteria Few H (None) /hpf Urine Mucus Few H (Occasional) /lpf Micro UA Comment Culture indicated Ur Microscopic Review Not Reportable Urine Culture Comments Culture indicated Imaging Data Radiologist's impression: Chest X-Ray 04/19/18 00:47 CONCLUSION: Mild interstitial prominence, left base infiltrate and small effusions. Venous Doppler Study 04/19/18 00:51 CONCLUSION: The study is negative for lower extremity deep venous thrombosis. ECG Data Attestation: I personally reviewed and interpreted this ECG as follows: Interpretation: The patient had an EKG done on arrival that shows a heart rate of 88, QRS duration is 89 ms, QTC 411 ms. Tremulous baseline is noted which could be affecting interpretation, however the patient is noted to have ST segment elevation in leads II, 3, aVF with downsloping ST segments in aVL. Discharge Plan Discharge Disposition Patient Disposition: 30 Still Patient Discharge Details Diagnosis: ST elevation myocardial infarction (STEMI), Pulmonary edema Physicians Team ED Provider: Apurva Rodriguez Primary Care Provider: Diego Hollis Attending Provider: Ezekiel Phelan Other Providers: John Jett Discharge Interventions Interventions: Vital Signs Last Done: 04/19/18 03:45 Status ED Status: Admitted Patient
[2018-04-19 01:10] LABS: Activated Partial Thrombo Time 23.6 sec (24.3-30.1); INR 1.1 Ratio; Prothrombin Time 11.5 sec (9.8-11.6)
--- NOTE | 2018-04-19 01:13 | XR ---
EXAM DATE: 04/19/2018 1:07 AM EDT AGE/SEX: 77 years / Female INDICATIONS: Chest pain. CLINICAL DATA: This is the patient's initial encounter. Patient reports that signs and symptoms have been present for 1 day and indicates a pain score of Nonresponsive. MEDICAL/SURGICAL HISTORY: . Cerebrovascular disease. Cardiovascular disease . Thyroidectomy. COMPARISON: [facility] [place], CHEST SINGLE AP, 12/03/2017. . FINDINGS: There is mild diffuse interstitial prominence. Opacity at the left base obscures the left diaphragm. There is slight blunting of the costophrenic angles. Accounting for rotation, cardiac contours are gr ossly stable. CONCLUSION: Mild interstitial prominence, left base infiltrate and small effusions. Electronically signed by: Duran Araya MD 04/19/2018 1:11 AM EDT
[2018-04-19 01:31] LABS: Bacteria,Urine Few /hpf; Bilirubin,Urine Negative (Negative); Clarity,Urine Turbid (Clear); Color,Urine Yellow (Yellw/Straw); Glucose,Urine (UA) Negative (Negative); Leukocyte Esterase,Urine Large (Negative); Mucus,Urine Few /lpf (Occasional); Nitrite,Urine Negative (Negative)
[2018-04-19 01:38] LABS: Calcium 7.3 mg/dL (8.5-10.1); Magnesium 1.9 mg/dL (1.5-2.5); Troponin I 0.24 ng/mL (0.02-0.05)
[2018-04-19 01:59] LABS: Creatine Kinase MB 12.7 ng/mL (0.5-3.6)
[2018-04-19 02:01] LABS: CKMB Percent 5.8 % (0.0-4.0)
--- NOTE | 2018-04-19 02:28 | US ---
EXAM DATE: 04/19/2018 1:47 AM EDT AGE/SEX: 77 years / Female INDICATIONS: Left leg swelling and bruising. CLINICAL DATA: This is the patient's initial encounter. Patient reports that signs and symptoms have been present for 1 day and indicates a pain score of 0/10. MEDICAL/SURGICAL HISTORY: Hypothyroidism. Rheumatoid arthritis. Anticoagulant therapy, Plavix. None. COMPARISON: No prior exams available for comparison. TECHNIQUE: Venous ultrasound of both lower extremities was performed from the inguinal ligament to t he proximal calf. Real-time, color Doppler and spectral tracing, compression and augmentation techni ques were used. FINDINGS: Normal compression of the deep venous system from the inguinal region to the proximal calf . No echogenic clot is seen. Normal response of the venous system to augmentation and respiration. CONCLUSION: The study is negative for lower extremity deep venous thrombosis. Electronically signed by: Duran Araya MD 04/19/2018 2:27 AM EDT
[2018-04-19] MEDS ORDERED: Vancomycin Inj 1,000 MG in Sodium Chlor 0.9% Inj 250 ML IV.SIG ONE (02:30)
[2018-04-19] MEDS: DOPamine 800 MG/500 ML Premix 800 MG/500 ML PLAST..BAG IV.CONT PRN ×2 (02:50→21:10)
[2018-04-19] MEDS ORDERED: Acetaminophen 325 MG Tablet PO PRN ×2 (03:39→03:40)
[2018-04-19] MEDS ORDERED: Bisacodyl 10 MG Supp RECTAL PRN (03:40)
[2018-04-19] MEDS ORDERED: Chlorhexidine Gluconate 2% 1 Pack (2 Cloths) TOPICAL SCH (04:00)
[2018-04-19] MEDS ORDERED: Chlorhexidine Gluconate 2% 1 Pack (2 Cloths) TOPICAL PRN (04:00)
[2018-04-19] MEDS ORDERED: Heparin Drip 25,000 UNIT/250 ML BAG IV.CONT PRN (04:02)
--- NOTE | 2018-04-19 04:47 | P.HPCC ---
History of Present Illness Primary Care Physician: Diego Hollis MD History of Present Illness: 77 year old female with a history of sudden onset of dyspnea that was noted at her [facility] at shift change at approximately 11 PM. The patient reports that she has had a cough that began earlier today and has been productive of white sputum. According to ambulance services, the patient is on 2-3 L nasal cannula O2 continuously. Ambulance services report that the patient was going to be started on antibiotic for the cough, however this had not been done yet. The patient does have a chronic indwelling Li catheter with cloudy urine. Ambulance services did an EKG prior to arrival that showed ST segment elevation in the inferior leads and a STEMI alert was called on the patient prior to arrival. The patient denies having any chest pain. The patient was placed on a nonrebreather mask prior to arrival and reports improvement in her shortness of breath. The patient presented to emergency department awake and alert and oriented. According to the record, the patient is DNR, which was further discussed by ED attending with the patient who confirmed that she would not want to be intubated or placed on a ventilator. She also confirms that she would not want chest compressions. ED attending also discussed with the patient possibility of a cardiac catheterization, the patient again reports that she would like to avoid any invasive procedures. This was also discussed by ED attending with the vest backer on-call who recommended conservative management of acute coronary syndrome. She was also noted to have edema and erythema of left lower extremity, and the DVT was ruled out by ultrasound obtained in the emergency department. Inpatient Certification: I certify that the inpatient services were ordered in accordance with Medicare regulations governing the order. This includes certification that hospital inpatient services are reasonable and necessary and in the case of services not specified as inpatient-only under 42 CFR 419.22(n), that they are appropriately provided as inpatient services in accordance to with the 2-midnight benchmark under 43 CFR 412.3(e) Estimated Total Length of Stay (Days): 5 Plans for Post Hospital Care: Not yet determined Review of Systems All other systems reviewed negative except as stated in HPI PMFSH - History History Provided By: Supervising Architect / EMT - Medical History Medical History: Medical History (Last Updated 04/19/18 @ 00:46 by Margarita Wright) Hypothyroidism Rheumatoid arthritis - Tobacco History Smoking Status: Former smoker Tobacco Type: Cigarettes - Alcohol History How Often Do You Have a Drink Containing Alcohol: Never - Substance Use History Substance History: No History of Abuse - Travel History Recent Travel in the [place] Within the Last 8 Weeks: No Recent Travel Out of the Country Within the Last 8 Weeks: No - Immunization History Tetanus Immunization: Unsure Medications and Allergies Active Medications: Active Medications Acetaminophen (Tylenol) 650 mg PO Q4H PRN PRN Reason: fever Acetaminophen (Tylenol) 650 mg PO Q6H PRN PRN Reason: PAIN 1-10 AND/OR FEVER >101F Al Hydroxide/Mg Hydroxide (Milk Of Magnesia Liq) 30 ml PO Q12H PRN PRN Reason: Mild Constipation Albuterol (Duoneb Neb (Prn)) 1 ampul NEB Q2HR NEB PRN PRN Reason: WHEEZING Bisacodyl (Dulcolax Supp) 10 mg RECTAL DAILY PRN PRN Reason: SEVERE CONSITIPATION Chlorhexidine Gluconate (Chlorhexidine 2% Cloth) 3 pack TOPICAL DAILY@0400 NICOLE Stop: 04/24/18 03:59 Chlorhexidine Gluconate (Chlorhexidine 2% Cloth) 3 pack TOPICAL DAILY@0400 PRN PRN Reason: Extra cloth needed Stop: 04/24/18 03:59 Clopidogrel Bisulfate (Plavix) 75 mg PO DAILY NICOLE Famotidine (Pepcid Pf Inj) 20 mg IV.PUSH Q12HR NICOLE Hydroxychloroquine Sulfate (Plaquenil) 200 mg PO BID NICOLE Sodium Chloride (Ns Inj) 1,000 mls @ 30 mls/hr IV.SIG .Q24H NICOLE Stop: 04/20/18 00:59 Dopamine HCl/Dextrose (Dopamine 800 Mg/500 Ml Premix) 800 mg in 500 mls @ 4.848 mls/hr IV.CONT TITRATE PRN; Protocol PRN Reason: Per Protocol Last Titration: 04/19/18 03:15 Dose: 20 mcg/kg/min, 32.32 mls/hr Heparin Sodium/Dextrose (Heparin/D5w 25,000 U/250 Ml) 25,000 unit in 250 mls @ 0 mls/hr IV.CONT TITRATE PRN; Protocol PRN Reason: Per Protocol Last Admin: 04/19/18 04:31 Dose: 12 units/hr, 0.12 mls/hr Lactulose (Lactulose Liq) 30 ml PO DAILY PRN PRN Reason: SEVERE CONSITIPATION Latanoprost (Xalatan 0.005% Opth Drops) 1 drop EACH EYE QPM [facility] Levothyroxine Sodium (Synthroid) 88 mcg PO DAILY@0600 NICOLE Mirtazapine (Remeron) 15 mg PO DAILY NICOLE Morphine Sulfate (Morphine Inj) 2 mg IV.PUSH Q2H PRN PRN Reason: PAIN SCALE 6 TO 10 Ondansetron HCl (Zofran Inj) 4 mg IV.PUSH Q6H PRN PRN Reason: NAUSEA OR VOMITING Pat Own Med: Cyclosporine ( Restasis) 0.05% Oph Emulsion 0 each EACH EYE Q12HR [facility] Pravastatin Sodium (Pravachol) 80 mg PO QPM NICOLE Senna/Docusate Sodium (Twila-Colace) 1 tab PO BID NICOLE Sennosides (Senokot) 17.2 mg PO Q12H PRN PRN Reason: Moderate Constipation Sodium Chloride (Ns Flush) 2 ml IV.FLUSH BID NICOLE Sodium Chloride (Ns Flush) 2 ml IV.FLUSH PRN PRN PRN Reason: FLUSH AFTER USING IV ACCESS Terbutaline Sulfate (Brethine Inj) 1 mg SQ ONCE PRN PRN Reason: Extravasation Allergies Allergy/AdvReac Type Severity Reaction Status Date / Time atorvastatin Allergy Severe RASH Verified 04/19/18 00:42 levofloxacin Allergy Severe NAUSEA, Verified 04/19/18 00:42 AND BLOOD PRESSURE DROPS penicillin G Allergy Severe hives Verified 04/19/18 00:42 Sulfa (Sulfonamide Allergy Severe hives Verified 04/19/18 00:42 Antibiotics) Home Medications Medication Instructions Recorded Confirmed Type acetaminophen [Tylenol] 650 mg PO Q4H PRN 04/19/18 04/19/18 History clopidogrel [Plavix] 75 mg PO DAILY 04/19/18 04/19/18 History cyclosporine [Restasis] 1 drp OPHTHALMIC (EYE) Q12H 04/19/18 04/19/18 History docusate sodium [Colace] 100 mg PO BID 04/19/18 04/19/18 History hydroxychloroquine [Plaquenil] 200 mg PO BID 04/19/18 04/19/18 History latanoprost 1 drp OPHTHALMIC (EYE) QPM 04/19/18 04/19/18 History levothyroxine 88 mcg PO DAILY 04/19/18 04/19/18 History mirtazapine 15 mg PO DAILY 04/19/18 04/19/18 History potassium chloride 10 meq PO DAILY 04/19/18 04/19/18 History simvastatin 40 mg PO QPM 04/19/18 04/19/18 History Results - Labs CBC & Chem 7: 04/19/18 00:51 Labs: Short CBC 04/19/18 Range/Units 00:51 WBC 7.1 (4.0-11.0) th/mm3 Hgb 9.9 L (11.6-15.3) gm/dL Hct 29.8 L (35.0-46.0) % Plt Count 159 (150-450) th/mm3 BMP 04/19/18 00:51 Calcium 7.3 L* Cardiac Enzymes 04/19/18 Range/Units 00:51 Total Creatine Kinase 220 H (26-192) U/L CK-MB (CK-2) 12.7 H (0.5-3.6) ng/mL Troponin I 0.24 H (0.02-0.05) ng/mL Urine 04/19/18 Range/Units 01:15 Urine Color Yellow (Yellw/Straw) Urine Clarity Turbid H (Clear) Urine pH 6.0 (5.0-8.5) Ur Specific [place] 1.010 (1.002-1.035) Urine Protein 100 H (Neg-Trace) mg/dL Urine Glucose (UA) Negative (Negative) mg/dL - Imaging Impressions Chest X-Ray 04/19/18 00:47 CONCLUSION: Mild interstitial prominence, left base infiltrate and small effusions. Venous Doppler Study 04/19/18 00:51 CONCLUSION: The study is negative for lower extremity deep venous thrombosis. Exam Vital signs: Vital Signs 04/19/18 00:37 04/19/18 00:45 04/19/18 01:55 Temperature 97.5 F L Pulse Rate 89 80 Respiratory Rate 21 22 Blood Pressure 93/62 L 83/61 L Pulse Oximetry 100 100 96 04/19/18 02:39 04/19/18 03:30 04/19/18 03:45 Temperature Pulse Rate 122 H 125 H Respiratory Rate 19 19 Blood Pressure 94/57 L 79/59 L 82/62 L Pulse Oximetry Intake & Output 04/18/18 04/18/18 04/19/18 06:59 18:59 06:59 Intake Total 600 / 600 Balance 600 / 600 Weight 43.091 kg Intake: IV 600 / 600 NS Inj 500 ML @ Wide Open IV. 500 / 500 SIG BOLUS ONE Rx#:[id number] Flagyl 500 MG Inj 100 ML @ 100 100 / 100 mls/hr IV.SIG ONCE ONE Rx#: [id number] - Constitutional mild distress - Routine HEENT Exam Head: Present: normocephalic, atraumatic Eye: Present: EOMI, PERRL, normal accommodation ENT: Present: mucous membranes moist - Routine Neck Exam Present: supple, full ROM. Absent: JVD, carotid bruit - Routine Respiratory Exam Present: rhonchi. Absent: accessory muscle use, stridor, wheezes, crackles - Routine Cardiovascular Exam Present: S1, S2. Absent: gallop, rubs - Routine Abdominal Exam Present: soft, normoactive bowel sounds. Absent: tenderness, distended - Routine Extremities Exam Present: edema. Absent: cyanosis, clubbing Comments: Edema and erythema over left lower extremity - Routine Skin Exam Present: intact, erythema, dry. Absent: cyanosis - Routine Neurological Exam Present: alert, oriented X3 Caprini VTE Risk Assessment Caprini VTE Risk Assessment: Moderate/High Risk (score >= 2) Caprini Risk Assessment Model: Point Value = 1 Point Value = 2 Point Value = 3 Point Value = 5 Age 41-60 Minor surgery BMI > 25 kg/m2 Swollen legs Varicose veins or History of unexplained or recurrent spontaneous Oral contraceptives or hormone replacement Sepsis (< 1 month) Serious lung disease, including pneumonia (< 1 month) Abnormal pulmonary function Acute myocardial infarction Congestive heart failure (< 1 month) History of inflammatory bowel disease Medical patient at bed rest Age 61-74 Arthroscopic surgery Major open surgery (> 45 min) Laparoscopic surgery (> 45 min) Malignancy Confined to bed (> 72 hours) Immobilizing plaster cast Central venous access Age >= 75 History of VTE Family history of VTE Factor V Leiden Prothrombin [id number] Lupus anticoagulant Anticardiolipin antibodies Elevated serum homocysteine Heparin-induced thrombocytopenia Other congenital or acquired thrombophilia Stroke (< 1 month) Elective arthroplasty Hip, pelvis, or leg fracture Acute spinal cord injury (< 1 month) Prophylaxis Regimen: Total Risk Factor Score Risk Level Prophylaxis Regimen 0-1 Low Early ambulation 2 Moderate Order ONE of the following: *Sequential Compression Device (SCD) *Heparin 5000 units SQ BID 3-4 Higher Order ONE of the following medications: *Heparin 5000 units SQ TID *Enoxaparin/Lovenox 40 mg SQ daily (WT < 150 kg, CrCl > 30 mL/min) *Enoxaparin/Lovenox 30 mg SQ daily (WT < 150 kg, CrCl > 10-29 mL/min) *Enoxaparin/Lovenox 30 mg SQ BID (WT < 150 kg, CrCl > 30 mL/min) AND/OR *Sequential Compression Device (SCD) 5 or more Highest Order ONE of the following medications: *Heparin 5000 units SQ TID (Preferred with Epidurals) *Enoxaparin/Lovenox 40 mg SQ daily (WT < 150 kg, CrCl > 30 mL/min) *Enoxaparin/Lovenox 30 mg SQ daily (WT < 150 kg, CrCl > 10-29 mL/min) *Enoxaparin/Lovenox 30 mg SQ BID (WT < 150 kg, CrCl > 30 mL/min) AND *Sequential Compression Device (SCD) Assessment and Plan - Assessment and Plan Plan: Acute coronary syndrome -Heparin drip -Aspirin and Plavix -ICU monitoring -Per patient's wishes noninvasive management -Further per cardiology Hypothyroidism -Levothyroxine Dyslipidemia -Pravastatin Glaucoma -Latanoprost Rheumatoid arthritis -Plaquenil twice daily DVT GI prophylaxis -Teds SCDs -Heparin drip -Pepcid 35 minutes of critical care
[2018-04-19 05:35] LABS: Hematocrit 32.7 % (35.0-46.0); Hemoglobin 10.9 gm/dL (11.6-15.3); Mean Corpuscular HGB Conc 33.2 % (32.0-36.0); Mean Corpuscular Hemoglobin 31.8 pg (27.0-34.0); Mean Corpuscular Volume 95.6 fL (80.0-100.0); Mean Platelet Volume 7.2 fL (7.0-11.0); Platelet Count 166 th/mm3 (150-450); Red Blood Count 3.41 mil/mm3 (4.00-5.30); Red Cell Distribution Width 12.7 % (11.6-17.2); White Blood Count 6.6 th/mm3 (4.0-11.0)
[2018-04-19 05:47] LABS: Activated Partial Thrombo Time 88.8 sec (24.3-30.1); INR 1.2 Ratio
[2018-04-19] MEDS ORDERED: Levothyroxine 88 MCG Tablet PO SCH (06:00)
[2018-04-19] MEDS ORDERED: Vancomycin Consult Pharmacy OTHER PRN ×2 (08:03→16:52)
--- NOTE | 2018-04-19 08:04 | P.CONCA ---
History of Present Illness Primary Care Provider: Diego Hollis MD History of Present Illness: This is a frail 77-year-old female who presented from SNF due to shortness of breath. She reports shortness of breath onset yesterday was fairly sudden. She has associated cough. She denies any chest pain. It appears she is on Plavix, however she denies any history of cardiac disease, stents, or stroke. She was found to have inferior ST elevations on EKG and STEMI alert was to be called in the ED, however the patient is a DNR and declines any invasive testing. Explained again coronary catheterization procedure with the patient and she continues to decline procedure. Explained that without any further intervention she is at risk for decreased heart function and and she verbalizes understanding. Continues to have shortness of breath, unchanged overnight with associated cough. She continues to deny chest pain. Currently hypotensive and on dopamine GTT. Review of Systems All other systems reviewed negative except as stated in HPI PMFSH - History History Provided By: Patient, Medical Record - Medical History Medical History: Medical History (Last Updated 04/19/18 @ 00:46 by Margarita Wright) Hypothyroidism Rheumatoid arthritis - Tobacco History Smoking Status: Former smoker Tobacco Type: Cigarettes - Alcohol History How Often Do You Have a Drink Containing Alcohol: Never - Substance Use History Substance History: No History of Abuse - Travel History Recent Travel in the [place] Within the Last 8 Weeks: No Recent Travel Out of the Country Within the Last 8 Weeks: No - Immunization History Tetanus Immunization: Unsure Medications and Allergies Allergies Allergy/AdvReac Type Severity Reaction Status Date / Time atorvastatin Allergy Severe RASH Verified 04/19/18 00:42 levofloxacin Allergy Severe NAUSEA, Verified 04/19/18 00:42 AND BLOOD PRESSURE DROPS penicillin G Allergy Severe hives Verified 04/19/18 00:42 Sulfa (Sulfonamide Allergy Severe hives Verified 04/19/18 00:42 Antibiotics) Home Medications Medication Instructions Recorded Confirmed Type acetaminophen [Tylenol] 650 mg PO Q4H PRN 04/19/18 04/19/18 History clopidogrel [Plavix] 75 mg PO DAILY 04/19/18 04/19/18 History cyclosporine [Restasis] 1 drp OPHTHALMIC (EYE) Q12H 04/19/18 04/19/18 History docusate sodium [Colace] 100 mg PO BID 04/19/18 04/19/18 History hydroxychloroquine [Plaquenil] 200 mg PO BID 04/19/18 04/19/18 History latanoprost 1 drp OPHTHALMIC (EYE) QPM 04/19/18 04/19/18 History levothyroxine 88 mcg PO DAILY 04/19/18 04/19/18 History mirtazapine 15 mg PO DAILY 04/19/18 04/19/18 History potassium chloride 10 meq PO DAILY 04/19/18 04/19/18 History simvastatin 40 mg PO QPM 04/19/18 04/19/18 History Active Medications: Active Medications Acetaminophen (Tylenol) 650 mg PO Q4H PRN PRN Reason: fever Acetaminophen (Tylenol) 650 mg PO Q6H PRN PRN Reason: PAIN 1-10 AND/OR FEVER >101F Al Hydroxide/Mg Hydroxide (Milk Of Magnvasu Liq) 30 ml PO Q12H PRN PRN Reason: Mild Constipation Albuterol (Duoneb Neb (Prn)) 1 ampul NEB Q2HR NEB PRN PRN Reason: WHEEZING Bisacodyl (Dulcolax Supp) 10 mg RECTAL DAILY PRN PRN Reason: SEVERE CONSITIPATION Chlorhexidine Gluconate (Chlorhexidine 2% Cloth) 3 pack TOPICAL DAILY@0400 NICOLE Stop: 04/24/18 03:59 Chlorhexidine Gluconate (Chlorhexidine 2% Cloth) 3 pack TOPICAL DAILY@0400 PRN PRN Reason: Extra cloth needed Stop: 04/24/18 03:59 Clopidogrel Bisulfate (Plavix) 75 mg PO DAILY NICOLE Famotidine (Pepcid Pf Inj) 20 mg IV.PUSH Q12HR NICOLE Hydroxychloroquine Sulfate (Plaquenil) 200 mg PO BID NICOLE Sodium Chloride (Ns Inj) 1,000 mls @ 30 mls/hr IV.SIG .Q24H NICOLE Stop: 04/20/18 00:59 Dopamine HCl/Dextrose (Dopamine 800 Mg/500 Ml Premix) 800 mg in 500 mls @ 4.848 mls/hr IV.CONT TITRATE PRN; Protocol PRN Reason: Per Protocol Last Titration: 04/19/18 03:15 Dose: 20 mcg/kg/min, 32.32 mls/hr Heparin Sodium/Dextrose (Heparin/D5w 25,000 U/250 Ml) 25,000 unit in 250 mls @ 0 mls/hr IV.CONT TITRATE PRN; Protocol PRN Reason: Per Protocol Last Admin: 04/19/18 04:31 Dose: 12 units/hr, 0.12 mls/hr Lactulose (Lactulose Liq) 30 ml PO DAILY PRN PRN Reason: SEVERE CONSITIPATION Latanoprost (Xalatan 0.005% Opth Drops) 1 drop EACH EYE QPM [facility] Levothyroxine Sodium (Synthroid) 88 mcg PO DAILY@0600 [facility] Mirtazapine (Remeron) 15 mg PO DAILY NICOLE Morphine Sulfate (Morphine Inj) 2 mg IV.PUSH Q2H PRN PRN Reason: PAIN SCALE 6 TO 10 Ondansetron HCl (Zofran Inj) 4 mg IV.PUSH Q6H PRN PRN Reason: NAUSEA OR VOMITING Pat Own Med: Cyclosporine ( Restasis) 0.05% Oph Emulsion 0 each EACH EYE Q12HR [facility] Pravastatin Sodium (Pravachol) 80 mg PO QPM [facility] Senna/Docusate Sodium (Twila-Colace) 1 tab PO BID [facility] Sennosides (Senokot) 17.2 mg PO Q12H PRN PRN Reason: Moderate Constipation Sodium Chloride (Ns Flush) 2 ml IV.FLUSH BID NICOLE Sodium Chloride (Ns Flush) 2 ml IV.FLUSH PRN PRN PRN Reason: FLUSH AFTER USING IV ACCESS Terbutaline Sulfate (Brethine Inj) 1 mg SQ ONCE PRN PRN Reason: Extravasation Exam Vital signs: Vital Signs 04/19/18 00:37 04/19/18 00:45 04/19/18 01:55 Temperature 97.5 F L Pulse Rate 89 80 Respiratory Rate 21 22 Blood Pressure 93/62 L 83/61 L Pulse Oximetry 100 100 96 04/19/18 02:39 04/19/18 03:30 04/19/18 03:45 Temperature Pulse Rate 122 H 125 H Respiratory Rate 19 19 Blood Pressure 94/57 L 79/59 L 82/62 L Pulse Oximetry 04/19/18 05:00 04/19/18 05:05 04/19/18 06:00 Temperature Pulse Rate 100 H 114 H 129 H Respiratory Rate 18 24 Blood Pressure 76/58 L 94/74 L Pulse Oximetry 98 Intake & Output 04/18/18 04/19/18 04/19/18 18:59 06:59 18:59 Intake Total 600 / 600 Output Total 900 / 900 Balance -300 / -300 Weight 93 lb 11.143 oz Intake: IV 600 / 600 NS Inj 500 ML @ Wide Open IV. 500 / 500 SIG BOLUS ONE Rx#:[id number] Flagyl 500 MG Inj 100 ML @ 100 100 / 100 mls/hr IV.SIG ONCE ONE Rx#: [id number] Oral 0 / 0 Output: Urine Amount (Catheter) 900 / 900 Indwelling Urethral Catheter 900 / 900 Other: # Bowel Movements 0 Weight On Admission 93 lb 11.143 oz Narrative: GENERAL: Well-developed fair-nourished. Thin, frail, elderly female. In no acute distress on nasal cannula. NECK: No carotid bruits. No JVD. CARDIOVASCULAR: Tachycardic rate and regular rhythm. No murmur appreciated. RESPIRATORY: No accessory muscle use. Clear to auscultation. Breath sounds equal bilaterally. MUSCULOSKELETAL: No clubbing or cyanosis. No edema. NEUROLOGICAL: Awake and alert. Normal speech. Results 04/19/18 05:22 Cardiac Enzymes 04/19/18 04/19/18 04/19/18 Range/Units 00:51 00:51 05:22 CK-MB (CK-2) 12.7 H (0.5-3.6) ng/mL Troponin I 0.24 H 0.26 H (0.02-0.05) ng/mL B-Natriuretic Peptide 2479 H (0-100) pg/mL Coagulation 04/19/18 04/19/18 04/19/18 Range/Units 00:51 00:51 05:22 PT 11.5 12.0 H (9.8-11.6) sec APTT 23.6 L 88.8 H D (24.3-30.1) sec B-Natriuretic Peptide 2479 H (0-100) pg/mL CBC 04/19/18 04/19/18 Range/Units 00:51 05:22 WBC 7.1 6.6 (4.0-11.0) th/mm3 RBC 3.14 L 3.41 L (4.00-5.30) mil/mm3 Hgb 9.9 L 10.9 L (11.6-15.3) gm/dL Hct 29.8 L 32.7 L (35.0-46.0) % Plt Count 159 166 (150-450) th/mm3 Neut # (Auto) 6.0 (1.8-7.7) th/mm3 Lymph # (Auto) 0.5 L (1.0-4.8) th/mm3 Todd # (Auto) 0.6 (0.0-0.9) th/mm3 Eos # (Auto) 0.0 (0.0-0.4) th/mm3 Baso # (Auto) 0.0 (0.0-0.2) th/mm3 Comprehensive Metabolic Panel 04/19/18 Range/Units 00:51 Calcium 7.3 L* (8.5-10.1) mg/dL Intake and Output 04/18/18 04/19/18 04/19/18 22:59 06:59 14:59 Intake Total 600 / 600 Output Total 900 / 900 Balance -300 / -300 Intake: IV 600 / 600 NS Inj 500 ML @ Wide Open IV. 500 / 500 SIG BOLUS ONE Rx#:[id number] Flagyl 500 MG Inj 100 ML @ 100 100 / 100 mls/hr IV.SIG ONCE ONE Rx#: [id number] Oral 0 / 0 Output: Urine Amount (Catheter) 900 / 900 Indwelling Urethral Catheter 900 / 900 Other: # Bowel Movements 0 Weight 93 lb 11.143 oz Weight On Admission 93 lb 11.143 oz Assessment and Plan - Plan This is a frail 77-year-old female who presented from SNF due to shortness of breath. She reports shortness of breath onset yesterday was fairly sudden. She has associated cough. She denies any chest pain. She was found to have inferior ST elevations on EKG and STEMI alert was to be called in the ED, however the patient is a DNR and declines any invasive testing. Dyspnea: With associated cough, lung infiltrate on chest x-ray, hypotension, hypoxia. Management per primary team. STEMI by EKG: No chest pain. Troponins flat at 0.24, 0.26. Patient declines any invasive testing/LHC, recommend medical management. DC heparin. Add aspirin to Plavix. Echocardiogram pending. Nothing further to add from a cardiology perspective at this time and will sign off. Please call with any questions. Discussed Condition With: Patient, RN, Dr. Jett - Attending Attestation NOT STEMI. small troponin elevation. + SOB. + tachycardiac. EKG S1 Q3 T3. immobility. pulmonary embolism definitely in differential diagnosis. Ok to DC heparin gtt from ACS standpoint. Will leave decision for PE workup to printing press machinist. DNR. refused LHC in ER last night. no plans for invasive strategy. no LHC. no SPECT. Wean dopamine gtt which is contributing to tachycardia. Phenylephrine may be better choice if remains hypotensive. IVF She is not a [facility] patient. Does not follow in our cardiology clinic. For any return visits, should be "on-call cardiology" coverage. Will sign off. Call with questions.
--- NOTE | 2018-04-19 08:18 | P.PNCC ---
Subjective Subjective Remarks/Hospital Course: 77 year old female with a history of sudden onset of dyspnea that was noted at her [facility] at shift change at approximately 11 PM. The patient reports that she has had a cough that began earlier today and has been productive of white sputum. According to ambulance services, the patient is on 2-3 L nasal cannula O2 continuously. Ambulance services report that the patient was going to be started on antibiotic for the cough, however this had not been done yet. The patient does have a chronic indwelling Li catheter with cloudy urine. Ambulance services did an EKG prior to arrival that showed ST segment elevation in the inferior leads and a STEMI alert was called on the patient prior to arrival. The patient denies having any chest pain. The patient was placed on a nonrebreather mask prior to arrival and reports improvement in her shortness of breath. The patient presented to emergency department awake and alert and oriented. According to the record, the patient is DNR, which was further discussed by ED attending with the patient who confirmed that she would not want to be intubated or placed on a ventilator. She also confirms that she would not want chest compressions. ED attending also discussed with the patient possibility of a cardiac catheterization, the patient again reports that she would like to avoid any invasive procedures. This was also discussed by ED attending with the flight control specialist on-call who recommended conservative management of acute coronary syndrome. She was also noted to have edema and erythema of left lower extremity, and the DVT was ruled out by ultrasound obtained in the emergency department. SUBJECTIVE: 04/19: Critically ill resting in bed on 20 mcg/kg/min of dopamine. On nasal cannula with persistent cough. Significant cellulitis left lower extremity and has urinary tract infection. Inferior ST elevation upon presentation. Discussed interventions including central line, cardiac catheterization and she is refusing. Risks including infiltration of IV causing necrosis to tissue, worsening of clinical condition and . Patient affirms those risk and does not wish to proceed. He is oriented to person place and time. Appears competent. Palliative care consult. Cardiology consult ongoing. Appreciate input Objective Vital Signs / I&O: Vital Signs 04/19/18 00:37 04/19/18 00:45 04/19/18 01:55 Temperature 97.5 F L Pulse Rate 89 80 Respiratory Rate 21 22 Blood Pressure 93/62 L 83/61 L Pulse Oximetry 100 100 96 04/19/18 02:39 04/19/18 03:30 04/19/18 03:45 Temperature Pulse Rate 122 H 125 H Respiratory Rate 19 19 Blood Pressure 94/57 L 79/59 L 82/62 L Pulse Oximetry 04/19/18 05:00 04/19/18 05:05 04/19/18 06:00 Temperature Pulse Rate 100 H 114 H 129 H Respiratory Rate 18 24 Blood Pressure 76/58 L 94/74 L Pulse Oximetry 98 Intake & Output 04/18/18 04/19/18 04/19/18 18:59 06:59 18:59 Intake Total 600 / 600 Output Total 900 / 900 Balance -300 / -300 Weight 42.5 kg Intake: IV 600 / 600 NS Inj 500 ML @ Wide Open IV. 500 / 500 SIG BOLUS ONE Rx#:[id number] Flagyl 500 MG Inj 100 ML @ 100 100 / 100 mls/hr IV.SIG ONCE ONE Rx#: [id number] Oral 0 / 0 Output: Urine Amount (Catheter) 900 / 900 Indwelling Urethral Catheter 900 / 900 Other: # Bowel Movements 0 Weight On Admission 42.5 kg Result Diagrams: 04/19/18 05:22 Imaging: ITS Impressions Chest X-Ray 04/19/18 00:47 CONCLUSION: Mild interstitial prominence, left base infiltrate and small effusions. Venous Doppler Study 04/19/18 00:51 CONCLUSION: The study is negative for lower extremity deep venous thrombosis. Objective Remarks: GENERAL: 77/-year-old female currently resting in bed in moderate respiratory distress SKIN: Warm and dry and scaling. Significant erythema to left lower extremity. HEAD: Atraumatic. Normocephalic. EYES: Left eye is matted. No scleral icterus. Some drainage to the left eye. ENT: No nasal bleeding or discharge. Mucous membranes pink and moist. NECK: Trachea midline. No JVD. CARDIOVASCULAR: Regular rate and rhythm. S1, S2. No S4. RESPIRATORY: Diminished with few bibasilar crackles appreciated. GASTROINTESTINAL: Abdomen soft, non-tender, nondistended. Hepatic and splenic margins not palpable. MUSCULOSKELETAL: Left lower extremity with significant erythema, scaly skin. Warm and painful. NEUROLOGICAL: Awake and alert. No obvious cranial nerve deficits. Motor grossly within normal limits. Five out of 5 muscle strength in the arms and legs. Normal speech. Assessment and Plan - Assessment and Plan Plan: Neuro/Psych: Glaucoma Depression disorder NOS Continue mirtazapine 15 mg daily for depression Acetaminophen 650 p.o. every 6 hours as needed fever Continue cyclosporine 0.05% 1 drop each eye 2xdaily and latanoprost 0.005% 1 drop each eye at night CV: Inferior W[place]/acute Severe sepsis secondary to urinary tract infection Hyperlipidemia Peripheral arterial disease Elevated troponin Evaluated by Dr. Pruett/cardiology. Patient refusing intervention. They have signed off. Continue aspirin 81 mg daily and clopidogrel 75 mg daily Continue simvastatin 40 mg daily for dyslipidemia Currently on dopamine drip at 20 mg/kg/min to maintain mean artery pressure greater than equal to 65. Refuses central line placement. Echocardiogram pending. Troponin currently 0.26. Currently normal saline at 30 cc an hour Resp: Acute respiratory insufficiency Nasal cannula to maintain saturations greater than equal to 92% Incentive spirometry while awake Albuterol/ipratropium aerosols every 2 hours as needed dyspnea Chest x-ray admission revealed small left pleural effusion, infiltrate GI: Constipation Cardiac diet Famotidine for GI prophylaxis Docusate sodium/senna 1 tablet twice daily for bowel regimen : Li catheter if indicated for accurate I's and O's in a critical patient Endo: Hypothyroidism Currently on levothyroxine at 88 mcg daily. Check TSH Sliding scale insulin Accu-Cheks before meals/at bedtime to maintain a glycemic/ low regimen of aspart insulin Renal: Chronic kidney disease stage II Creatinine currently 1.1. Monitor urine output Accurate I's and O's Heme: Normocytic anemia Monitor CBC daily. Follow trends. No indication for transfusion of blood products at this time ID: Severe sepsis of unclear source. UTI? HCAP? Blood cultures 2, UA pending 04/19 Currently in vancomycin, aztreonam and metronidazole. Continue FEN: Replace electrolytes as clinically indicated per ICU likely protocol Currently normal saline at 30 cc MSK: History of inflammatory arthritis/rheumatoid arthritis on hydroxychloroquine sulfate T12 compression fracture Continue hydroxychloroquine sulfate 200 mg 2xdaily. PT evaluate and treat Access -Utilize peripheral IV. Central line refused by patient Prophylaxis -GI -famotidine -DVT -heparin subcu Additional 30 minutes critical care time. Palliative care consult since patient is currently refusing all potential life- saving interventions. Code Status: DNR
[2018-04-19] MEDS ORDERED: Sodium Phosphate Inj 30 MMOL in Sodium Chlor 0.9% Inj 250 ML IV.SIG PRN (08:23)
[2018-04-19] MEDS ORDERED: Potassium Phosphate 500 MG Soluble Tablet PO PRN ×2 (08:23)
[2018-04-19] MEDS ORDERED: Potassium Chloride 25 MEQ Effervescent Tablet PO PRN (08:23)
[2018-04-19] MEDS ORDERED: Potassium Chlor 40 mEq Premix 40 MEQ/100 ML PIGGYBACK IV.SIG PRN ×2 (08:23)
[2018-04-19] MEDS ORDERED: Magnesium Sulfate Inj 4 GM in Sodium Chlor 0.9% Inj 92 ML IV.SIG PRN (08:23)
[2018-04-19] MEDS ORDERED: Magnesium Oxide 400 MG Tablet PO PRN (08:23)
[2018-04-19] MEDS ORDERED: Dextrose 50% in Water 50 ML Vial IV.PUSH PRN (08:23)
[2018-04-19] MEDS ORDERED: Potassium Phosphate Inj 30 MMOL in Sodium Chlor 0.9% Inj 250 ML IV.SIG PRN (08:23)
[2018-04-19] MEDS ORDERED: Magnesium Sulfate Inj 2 GM in Sodium Chlor 0.9% Inj 96 ML IV.SIG PRN (08:23)
[2018-04-19] MEDS ORDERED: Potassium Chlor 20 mEq Premix 20 MEQ/100 ML PIGGYBACK IV.SIG PRN ×2 (08:23)
[2018-04-19] MEDS ORDERED: Aztreonam Inj 2 GM in Sodium Chloride 0.9% Inj 100 ML IV.SIG SCH (09:00)
[2018-04-19] MEDS ORDERED: Mirtazapine 15 MG Tablet PO SCH (09:00)
[2018-04-19] MEDS ORDERED: CYCLOSPORINE 0.05% EACH EYE SCH (09:00)
[2018-04-19] MEDS: Famotidine PF Inj 20 MG/2 ML Vial IV.PUSH SCH ×2 (09:33→20:14)
[2018-04-19] MEDS: Senna/Docusate Sodium 8.6/50 MG Tablet PO SCH ×2 (09:38→20:23)
[2018-04-19] MEDS: Hydroxychloroquine 200 MG Tablet PO SCH ×2 (09:38→20:23)
[2018-04-19] MEDS: Heparin - SQ 10,000 UNITS/ML Vial SQ SCH ×2 (09:50→20:14)
--- NOTE | 2018-04-19 10:22 | P.CONPAL ---
Consult Service: Palliative Care Requesting Physician: Alex Hurley Reason for Consult: a. To assist with evaluation and management of symptoms including: dyspnea, anxiety, pain b. To assist medical decision maker(s) with: better understanding of current medical conditions; weighing benefits/burdens of medical treatment options; making medical treatment decisions. Primary Care Provider: Diego Hollis MD History of Present Illness History of Present Illness: This is a 77 year old female with hx hypothyroidism, RA, HLD, who per EMR presented 04/19 as STEMI alert [facility] after she was noted to have sudden onset shortness of breath at shift change. Pt tells me she was having an attack of anxiety and then "messed up the bed from my catheter" and denies feeling pain or shortness of breath. She does admit a cough that she has had for 4-5 days. EKG done in ambulance showed ST elevation in inferior leads. CXR showed mild interstitial prominence, left base infiltrate, small effusions. Reportedly pt has chronic indwelling rizo with cloudy urine, is on 2-3 L o2 via [place] at her [facility]. On arrival to ER pt reportedly verbalized desire to remain DNR and avoid any invasive procedures to include cardiac catheterization. She denied chest pain. Cardiology was consulted and pt refused cath procedure. Cardiology recommended conservative mgmt ACS. She has community DNR signed in 2017. CCM was consulted. She is currently on dopamine gtt, noted to have UTI and LLE cellulitis, DVT ruled out. She refused central line placement. She has been hypotensive. She had recent admission in November 2017 for AMS. At that time she was reportedly having weight loss, poor PO intake and her PCP had recommended hospice care d/t failure to thrive and general decline. She was having activity intolerance as well. Hospice was consulted and has followed the patient periodically since, but family never elected hospice and no calls have been returned in 3 months. Dual visit with BLANCHE Dias. On my eval pt appears quite frail, is alert and oriented x 4 but does have some trace confusion, limited insight. She says she is in the hospital because of her anxiety attack. She tells me she is on [facility]. Per records they do follow her but she has never signed up for hospice care. She denies pain, feeling SOB. Denies anxiety at this time. Admits cough. Both lower legs are ecchymotic, scaly and both feet are red. Says her legs "always look like that." Patient's son reports that she requires o2 2-3 L at all times or she "gets confused." She reports that she is sedentary and spends most of the day in bed because she is bored. He denies any hx CHF. Function/Cognitive Trajectory: Per EMR pt has had decline since September. She has lost weight, become more activity intolerant in recent months. Son reports she did have a fall at her prison recently. Review of Systems Constitutional: Denies body ache(s), Denies weakness Eyes: Denies blind spots Ears, Nose, Mouth, and Throat: Denies abnormal hearing Cardiovascular: Reports leg swelling, Denies chest pain, Denies shortness of breath with activity, Denies shortness of breath when lying down Respiratory: Reports chest congestion, Reports cough Gastrointestinal: Denies abdominal pain, Denies nausea, Denies vomiting Musculoskeletal: Reports decreased muscle mass (pt not completely reliable, limited ROS obtained from chart review, d/w son) Skin/Breast: Reports dry skin, Reports non-healing lesions, Reports unusual bruising Neurologic: Reports unsteadiness, Denies seizure-like activity Psychiatric: Reports anxiety, Denies depression Hematologic/Lymphatic: Reports easy bruising PMFSH - History History Provided By: Patient (denies any significant family history of illness or cancer), Family Member, Medical Record - Medical History Medical History: Medical History (Last Updated 04/19/18 @ 16:12 by BLANCHE Hilliard) Chronic kidney disease Glaucoma Hip fracture requiring operative repair Hypothyroidism Rheumatoid arthritis - Surgical History Surgical History: Surgical History (Last Updated 04/19/18 @ 10:13 by BLANCHE Hilliard) H/O thyroidectomy History of tonsillectomy - Family History Family History: Family History (Last Updated 04/19/18 @ 16:46 by Mary Scott MD) Other No pertinent family history - Tobacco History Smoking Status: Former smoker Tobacco Type: Cigarettes - Alcohol History How Often Do You Have a Drink Containing Alcohol: Never - Substance Use History Substance History: No History of Abuse - Travel History Recent Travel in the [place] Within the Last 8 Weeks: No Recent Travel Out of the Country Within the Last 8 Weeks: No - Immunization History Tetanus Immunization: Unsure Medications and Allergies Active Medications: Active Medications Acetaminophen (Tylenol) 650 mg PO Q6H PRN PRN Reason: PAIN 1-10 AND/OR FEVER >101F Al Hydroxide/Mg Hydroxide (Milk Of Magnvasu Liq) 30 ml PO Q12H PRN PRN Reason: Mild Constipation Albuterol (Duoneb Neb (Prn)) 1 ampul NEB Q2HR NEB PRN PRN Reason: WHEEZING Aspirin (Ecotrin) 81 mg PO DAILY [facility] Last Admin: 04/19/18 09:38 Dose: 81 mg Bisacodyl (Dulcolax Supp) 10 mg RECTAL DAILY PRN PRN Reason: SEVERE CONSITIPATION Chlorhexidine Gluconate (Chlorhexidine 2% Cloth) 3 pack TOPICAL DAILY@0400 [facility] Stop: 04/24/18 03:59 Chlorhexidine Gluconate (Chlorhexidine 2% Cloth) 3 pack TOPICAL DAILY@0400 PRN PRN Reason: Extra cloth needed Stop: 04/24/18 03:59 Clopidogrel Bisulfate (Plavix) 75 mg PO DAILY [facility] Last Admin: 04/19/18 09:38 Dose: 75 mg Dextrose (D50w Vial) 50 ml IV.PUSH UNSCH PRN PRN Reason: PER HYPOGLYCEMIA PROTOCOL Famotidine (Pepcid Pf Inj) 20 mg IV.PUSH Q12HR [facility] Last Admin: 04/19/18 09:33 Dose: 20 mg Glucagon (Glucagon Inj) 1 mg OTHER PRN PRN PRN Reason: for Hypoglycemia Protocol Heparin Sodium (Porcine) (Heparin Inj) 5,000 units SQ Q12HR [facility] Last Admin: 04/19/18 09:50 Dose: 5,000 units Hydroxychloroquine Sulfate (Plaquenil) 200 mg PO BID [facility] Last Admin: 04/19/18 09:38 Dose: 200 mg Sodium Chloride (Ns Inj) 1,000 mls @ 30 mls/hr IV.SIG .Q24H [facility] Stop: 04/20/18 00:59 Dopamine HCl/Dextrose (Dopamine 800 Mg/500 Ml Premix) 800 mg in 500 mls @ 4.848 mls/hr IV.CONT TITRATE PRN; Protocol PRN Reason: Per Protocol Last Titration: 04/19/18 03:15 Dose: 20 mcg/kg/min, 32.32 mls/hr Aztreonam 2 gm/ Sodium (Chloride) 100 mls @ 200 mls/hr IV.SIG Q8H [facility] Last Admin: 04/19/18 09:41 Dose: 100 mls/hr Metronidazole/Sodium Chloride (Flagyl 500 Mg Inj) 100 mls @ 100 mls/hr IV.SIG Q8H [facility] Last Admin: 04/19/18 09:39 Dose: 100 mls/hr Magnesium Sulfate Inj 4 gm/ (Sodium Chloride) 100 mls @ 50 mls/hr IV.SIG UNSCH PRN PRN Reason: For Magnesium 0.9 - 1.1 mg/dL Magnesium Sulfate Inj 2 gm/ (Sodium Chloride) 100 mls @ 50 mls/hr IV.SIG UNSCH PRN PRN Reason: For Magnesium 1.2 - 1.6 mg/dL Potassium Chloride (Kcl 40 Meq Premix Inj) 40 meq in 100 mls @ 25 mls/hr IV.SIG Q2H PRN PRN Reason: For Potassium 2.8 - 3.2 mEq/L Potassium Chloride (Kcl 20 Meq Premix Inj) 20 meq in 100 mls @ 50 mls/hr IV.SIG Q2H PRN PRN Reason: For Potassium 3.3 - 3.5 mEq/L Potassium Chloride (Kcl 40 Meq Premix Inj) 40 meq in 100 mls @ 25 mls/hr IV.SIG UNSCH PRN PRN Reason: For Potassium 3.3 - 3.5 mEq/L Potassium Chloride (Kcl 20 Meq Premix Inj) 20 meq in 100 mls @ 50 mls/hr IV.SIG Q2H PRN PRN Reason: For Potassium 2.8 - 3.2 mEq/L Potassium Phosphate 30 mmol/ (Sodium Chloride) 260 mls @ 42 mls/hr IV.SIG UNSCH PRN PRN Reason: SEE LABEL COMMENTS Sodium Phosphate 30 mmol/ (Sodium Chloride) 260 mls @ 42 mls/hr IV.SIG UNSCH PRN PRN Reason: For Phosphorus < 2.5 mg/dL Insulin Aspart (Novolog Insulin Correctional Sugar Inj) 0 unit SQ ACHS [facility]; Protocol Lactulose (Lactulose Liq) 30 ml PO DAILY PRN PRN Reason: SEVERE CONSITIPATION Latanoprost (Xalatan 0.005% Opth Drops) 1 drop EACH EYE QPM [facility] Levothyroxine Sodium (Synthroid) 88 mcg PO DAILY@0600 [facility] Last Admin: 04/19/18 09:32 Dose: 88 mcg Magnesium Oxide (Mag-Ox) 800 mg PO UNSCH PRN PRN Reason: For Magnesium 1.2 - 1.6 mg/dL Mirtazapine (Remeron) 15 mg PO DAILY [facility] Last Admin: 04/19/18 09:38 Dose: 15 mg Morphine Sulfate (Morphine Inj) 2 mg IV.PUSH Q2H PRN PRN Reason: PAIN SCALE 6 TO 10 Ondansetron HCl (Zofran Inj) 4 mg IV.PUSH Q6H PRN PRN Reason: NAUSEA OR VOMITING Pat Own Med: Cyclosporine ( Restasis) 0.05% Oph Emulsion 0 each EACH EYE Q12HR [facility] Pharmacy Profile Note (Vancomycin Consult Pharmacy) 1 each OTHER UNSCH PRN PRN Reason: Pharmacy to dose Potassium Bicarb/Potassium Chloride (K-Lyte Cl Eff) 50 meq PO UNSCH PRN PRN Reason: For Potassium 3.3 - 3.5 mEq/L Potassium Phosphate (K-Phos Original) 2,000 mg PO Q4H PRN PRN Reason: Phosphorus Less Than 2.5 mg/dL Potassium Phosphate (K-Phos Original) 2,000 mg PO UNSCH PRN PRN Reason: SEE LABEL COMMENTS Pravastatin Sodium (Pravachol) 80 mg PO QPM [facility] Senna/Docusate Sodium (Twila-Colace) 1 tab PO BID [facility] Last Admin: 04/19/18 09:38 Dose: 1 tab Sennosides (Senokot) 17.2 mg PO Q12H PRN PRN Reason: Moderate Constipation Sodium Chloride (Ns Flush) 2 ml IV.FLUSH BID [facility] Last Admin: 04/19/18 09:51 Dose: 2 ml Sodium Chloride (Ns Flush) 2 ml IV.FLUSH PRN PRN PRN Reason: FLUSH AFTER USING IV ACCESS Terbutaline Sulfate (Brethine Inj) 1 mg SQ ONCE PRN PRN Reason: Extravasation Allergies Allergy/AdvReac Type Severity Reaction Status Date / Time atorvastatin Allergy Severe RASH Verified 04/19/18 00:42 levofloxacin Allergy Severe NAUSEA, Verified 04/19/18 00:42 AND BLOOD PRESSURE DROPS penicillin G Allergy Severe hives Verified 04/19/18 00:42 Sulfa (Sulfonamide Allergy Severe hives Verified 04/19/18 00:42 Antibiotics) Home Medications Medication Instructions Recorded Confirmed Type acetaminophen [Tylenol] 650 mg PO Q4H PRN 04/19/18 04/19/18 History clopidogrel [Plavix] 75 mg PO DAILY 04/19/18 04/19/18 History cyclosporine [Restasis] 1 drp OPHTHALMIC (EYE) Q12H 04/19/18 04/19/18 History docusate sodium [Colace] 100 mg PO BID 04/19/18 04/19/18 History hydroxychloroquine [Plaquenil] 200 mg PO BID 04/19/18 04/19/18 History latanoprost 1 drp OPHTHALMIC (EYE) QPM 04/19/18 04/19/18 History levothyroxine 88 mcg PO DAILY 04/19/18 04/19/18 History mirtazapine 15 mg PO DAILY 04/19/18 04/19/18 History potassium chloride 10 meq PO DAILY 04/19/18 04/19/18 History simvastatin 40 mg PO QPM 04/19/18 04/19/18 History Advance Directives Living Will: No Healthcare Surrogate: No Power of Dozer Operator: No Physical Exam Vital Signs: Vital Signs - 24 hr 04/19/18 00:37 04/19/18 00:45 04/19/18 01:55 Temperature 97.5 F L Pulse Rate 89 80 Respiratory Rate 21 22 Blood Pressure 93/62 L 83/61 L Pulse Oximetry 100 100 96 04/19/18 02:39 04/19/18 03:30 04/19/18 03:45 Temperature Pulse Rate 122 H 125 H Respiratory Rate 19 19 Blood Pressure 94/57 L 79/59 L 82/62 L Pulse Oximetry 04/19/18 05:00 04/19/18 05:05 04/19/18 06:00 Temperature Pulse Rate 100 H 114 H 129 H Respiratory Rate 18 24 Blood Pressure 76/58 L 94/74 L Pulse Oximetry 98 04/19/18 09:42 Temperature Pulse Rate Respiratory Rate Blood Pressure Pulse Oximetry 96 I&O: Intake & Output 04/17/18 04/18/18 04/19/18 04/20/18 06:59 06:59 06:59 06:59 Intake Total 600 / 600 60.9 / 60.9 Output Total 900 / 900 Balance -300 / -300 60.9 / 60.9 Weight 42.5 kg Physical Exam: CONSTITUTIONAL/GENERAL: This is frail appearing female in NAD TUBES/LINES/DRAINS: PIV SKIN: No jaundice, rashes. Ecchymoses on lower extremities. No wounds seen anteriorly. BLE warm to touch, red, scaly. HEAD: Atraumatic. Normocephalic. EYES: PERRL. Extraocular motions intact. No scleral icterus. No injection or drainage. ENT: Hearing grossly normal. Nose without bleeding or purulent drainage. . NECK: Trachea midline. Supple, nontender. CARDIOVASCULAR: Tachy without murmurs, gallops, or rubs. No JVD. Peripheral pulses symmetric. RESPIRATORY/CHEST: Symmetric, unlabored respirations. coarse lung sounds. Breath sounds equal bilaterally. GASTROINTESTINAL: Abdomen soft, non-tender, mildly distended. No hepato- splenomegaly, or palpable masses. No guarding. Bowel sounds present. GENITOURINARY: Without palpable bladder distension. Rizo catheter in place. MUSCULOSKELETAL: Extremities without clubbing, cyanosis, or edema. No joint tenderness or effusion noted. No calf tenderness. No mottling or clubbing. LYMPHATICS: No palpable cervical or supraclavicular adenopathy. NEUROLOGICAL: Awake and alert. Motor and sensory grossly within normal limits. Follows commands. mild confusion/lack insight. Moves all extremities. PSYCHIATRIC: No obvious anxiety/depression. no apparent hallucinations or other psychotic thought process. Diagnostic Tests Laboratory: Laboratory Results - last 72 hr 04/19/18 04/19/18 04/19/18 00:51 00:51 00:51 WBC 7.1 RBC 3.14 L Hgb 9.9 L POC Hgb (Calc) 9.5 L Hct 29.8 L POC Hct 28.0 L MCV 94.9 MCH 31.6 MCHC 33.3 RDW 12.5 Plt Count 159 MPV 7.5 Neut % (Auto) 83.9 H Lymph % (Auto) 6.8 L [place] % (Auto) 8.7 H Eos % (Auto) 0.2 Baso % (Auto) 0.4 Neut # (Auto) 6.0 Lymph # (Auto) 0.5 L [place] # (Auto) 0.6 Eos # (Auto) 0.0 Baso # (Auto) 0.0 WBC Differential . Differential Comment Auto diff final PT 11.5 INR 1.1 APTT 23.6 L POC Sodium 128 L POC Potassium 4.9 POC Chloride 95 L POC BUN 21 POC Creatinine 1.1 POC Glucose 120 H Lactic Acid Calcium 7.3 L* Magnesium 1.9 Total Creatine Kinase 220 H CK-MB (CK-2) 12.7 H CK-MB (CK-2) % 5.8 H* Troponin I 0.24 H B-Natriuretic Peptide Urine Color Urine Clarity Urine pH Ur Specific [place] Urine Protein Urine Glucose (UA) Urine Ketones Urine Occult Blood Urine Nitrate Urine Bilirubin Urine Urobilinogen Ur Leukocyte Esterase Urine RBC Urine WBC Urine WBC Clumps Urine Bacteria Urine Mucus Micro UA Comment Ur Microscopic Review Urine Culture Comments 04/19/18 04/19/18 04/19/18 00:51 01:05 01:15 WBC RBC Hgb POC Hgb (Calc) Hct POC Hct MCV MCH MCHC RDW Plt Count MPV Neut % (Auto) Lymph % (Auto) [place] % (Auto) Eos % (Auto) Baso % (Auto) Neut # (Auto) Lymph # (Auto) [place] # (Auto) Eos # (Auto) Baso # (Auto) WBC Differential Differential Comment PT INR APTT POC Sodium POC Potassium POC Chloride POC BUN POC Creatinine POC Glucose Lactic Acid 1.1 Calcium Magnesium Total Creatine Kinase CK-MB (CK-2) CK-MB (CK-2) % Troponin I B-Natriuretic Peptide 2479 H Urine Color Yellow Urine Clarity Turbid H Urine pH 6.0 Ur Specific [place] 1.010 Urine Protein 100 H Urine Glucose (UA) Negative Urine Ketones Negative Urine Occult Blood Moderate H Urine Nitrate Negative Urine Bilirubin Negative Urine Urobilinogen Less than 2 Ur Leukocyte Esterase Large H Urine RBC 29 H Urine WBC Urine WBC Clumps Many H Urine Bacteria Few H Urine Mucus Few H Micro UA Comment Culture indicated Ur Microscopic Review Not Reportable Urine Culture Comments Culture indicated 04/19/18 04/19/18 04/19/18 05:22 05:22 05:22 WBC 6.6 RBC 3.41 L Hgb 10.9 L POC Hgb (Calc) Hct 32.7 L POC Hct MCV 95.6 MCH 31.8 MCHC 33.2 RDW 12.7 Plt Count 166 MPV 7.2 Neut % (Auto) Lymph % (Auto) [place] % (Auto) Eos % (Auto) Baso % (Auto) Neut # (Auto) Lymph # (Auto) [place] # (Auto) Eos # (Auto) Baso # (Auto) WBC Differential Differential Comment PT 12.0 H INR 1.2 APTT 88.8 H D POC Sodium POC Potassium POC Chloride POC BUN POC Creatinine POC Glucose Lactic Acid Calcium Magnesium Total Creatine Kinase CK-MB (CK-2) CK-MB (CK-2) % Troponin I 0.26 H B-Natriuretic Peptide Urine Color Urine Clarity Urine pH Ur Specific [place] Urine Protein Urine Glucose (UA) Urine Ketones Urine Occult Blood Urine Nitrate Urine Bilirubin Urine Urobilinogen Ur Leukocyte Esterase Urine RBC Urine WBC Urine WBC Clumps Urine Bacteria Urine Mucus Micro UA Comment Ur Microscopic Review Urine Culture Comments Result Diagrams: 04/19/18 05:22 Imaging: ITS Impressions Chest X-Ray 04/19/18 00:47 CONCLUSION: Mild interstitial prominence, left base infiltrate and small effusions. Venous Doppler Study 04/19/18 00:51 CONCLUSION: The study is negative for lower extremity deep venous thrombosis. Procedures: 04/19 central line placed Patient/Family Conference Present at Family Conference: bedside conference with pt phone conversation with son Alfredo Family Conference Time: 40 Family Conference Location: Bedside, Telephone Issues Discussed: telephone conversation and bedside discussion with pt's son and son's and pt: * Palliative care role, purpose, approach * Additional medical, psychosocial, and spiritual history * review Patients general health, functional status, and cognitive changes in the months leading up to the current hospitalization * Patient/family understanding of the current medical problems * Patient/family understanding of prognosis - they acknowledge that she is declining * Patients goals of care as best understood from advance directives and/or conversations and/or values * Current medical treatment options and benefits/burdens of those options * Likely scenarios comparing ongoing aggressive care with a transition to comfort measures only * re-introduced hospice * code status - no code * decision maker - pt is likely capacitated but generally is deferring to her son and his to assist * Questions answered to the best of my ability * Palliative care contact information provided Goals aggressive short of no code/DNR. Both pt and son agree to central line placement for facilitation of further medical treatment. They seem to be opposed to "anything where she would need to be cut open." They are open to discussion about hospice but not ready for it at this time, they want her treated and optimized first. Assessment and Plan - Symptom Scale (1) Pain 0-10 Scale: Unable to quantify (2) Dyspnea 0-10 Scale: Unable to quantify Pertinent Non-Medical Issues: Psychosocial: Pt is originally from [place]. She was for 44 years and her in the but she cannot recall the exact year. she has one son and numerous grandchildren who live locally. Spiritual: denies Legal: Pt is likely capacitated to make decisions although does exhibit some trace confusion/lack of insight. She generally is deferring decision making to her son, who would be her proxy decision maker if she was not capacitated. Ethical issues impacting care: none Important Contacts: Son Alfredo Dye [phone] Prognosis: This is a 77 yo female with hx hypothryoidism, CKD, who presented 04/19 and was found to have STEMI, UTI, cellulitis. She is beign treated for sepsis. SHe is refusing invasive procedures and Without invasive procedures her prognosis is poor and even with invasive procedures she is likely to continue to decline as she has since November 2017. Code Status: No Code DNR Plan: - LEGAL DECISION MAKER - Pt is likely capacitated to make decisions although does exhibit some trace confusion/lack of insight. She generally is deferring decision making to her son, who would be her proxy decision maker if she was not capacitated. - CODE STATUS- no code/DNR - GOALS - Goals aggressive short of no code/DNR. Both pt and son agree to central line placement for facilitation of further medical treatment. They seem to be opposed to "anything where she would need to be cut open." They are open to discussion about hospice but not ready for it at this time, they want her treated and optimized first. - SYMPTOMS - * dyspnea -2/2 pulmonary edema, ?etiology. 4 day hx cough, pt reportedly presented with SOB but she denies this, saying she had an anxiety attack. CXR showed pulmonary edema, BNP >2000. Family denies hx CHF. hypotensive despite being on dopamine gtt. ECHO is pending. pt requires use of o2 at home. Now on 6L with sat 96%. dopamine gtt 32ml/hr. has PRn duonebs. consider PRN ativan for dyspnea, anxiety if BP allows * pain - risk for pain. hx RA, fractured hip. BLE erythematous and with dry scaly skin. ?UTI? denies pain on my eval. Per son pt not able to quantify or qualify pain and tends to be overmedicated as she will say random numbers when asked. Has PRN morphine 2mg IV q2h, does not appear this has been given yet. * anxiety - pt c/o anxiety attack precipitating hospital admission. could be r/ t dyspnea. consider prn ativan if BP allows - Palliative care will continue to follow during hospital course as condition evolves, to assist patient/decision-maker with understanding of medical conditions, weighing benefits/burdens of treatment options, for clarification of goals of treatment. Additionally will assist with any symptoms of palliative concern Appreciation Thank you for the opportunity to participate in the care of Alyson Dye. Attestation Attestation: To help prompt me to consider important information that might be impacting today's encounter and assessment, information from prior notes written by myself or my colleagues may have been "brought forward" into today's note. My signature on this note, however, is an attestation that I personally performed the exam, history, and/or decision-making noted today, and, unless otherwise indicated, the interactions with patient, family, and staff as well as the review of records all occurred today. I also attest that the listed assessment and stated plan reflect my best clinical judgment today based on the combination of historical information, prior notes, and today's exam/ interactions. When time spent is documented, it refers only to time spent today by the signer, or if indicated, combined time spent today by collaborating physician/nurse practitioner.
[2018-04-19] MEDS: Insulin NovoLOG Aspart Correctional Sugar Inj SQ SCH ×3 (12:47→20:24)
[2018-04-19] MEDS ORDERED: Norepinephrine Inj 4 MG/4 ML Ampul ONE (16:04)
--- NOTE | 2018-04-19 16:07 | P.PCN ---
Date of procedure: 04/19/18 Pre-op diagnosis: Severe sepsis requiring vasopressors Post-op diagnosis: same Procedure: DATE: 04/19/2018 CENTRAL LINE PLACEMENT: Left internal jugular vein. Ultrasound-guided INDICATION: Central venous access CONSENT Informed consent for procedure was obtained from competent patient with son at bedside. DESCRIPTION OF THE PROCEDURE The patient was placed in supine position. The skin was cleansed with Chloraprep. Additional barrier precautions included large sterile drape, sterile gloves, sterile gown, face mask, and hat. 1 % lidocaine was used for local anesthesia. Under direct ultrasound guidance and on initial attempt, the vein was accessed with an introducer needle. The guide wire was advanced and the tract was dilated. Using Seldinger technique a 7 Arabic 20 cm antimicrobial coated triple-lumen catheter was advanced to a depth of 20 centimeters. The guide wire was removed. All ports had good return of dark venous blood and flushed easily with saline. The central line was secured with 2.0 silk. A sterile dressing with antibiotic disc was applied. ESTIMATED BLOOD LOSS: Minimal COMPLICATIONS: No apparent complications. STAT chest x-ray pending at time of dictation
--- NOTE | 2018-04-19 16:28 | ECHRPT ---
Indication: Coronary Atherosclerosis CONCLUSIONS Normal left ventricular size. Wall thickness is normal. The left ventricular systolic function is mildly decreased with an estimated ejection fraction of 45 %. Inferoposterior hypokinesis. Mild mitral valve regurgitation. Mitral annular calcification is present. Trace aortic valve regurgitation. There is trace tricuspid valve regurgitation. The estimated pulmonary arterial pressure is 28 mmHg. There is a small pericardial effusion present. A left sided pleural effusion is present. BP: / HR: Rhythm: MEASUREMENTS (Male / Female) Normal Values Technical Quality:Fair 2D ECHO LV Diastolic Diameter PLAX 4.4 cm 4.2 - 5.9 / 3.9 - 5.3 cm LV Systolic Diameter PLAX 3.1 cm IVS Diastolic Thickness 1.0 cm 0.6 - 1.0 / 0.6 - 0.9 cm LVPW Diastolic Thickness 1.0 cm 0.6 - 1.0 / 0.6 - 0.9 cm LV Relative Wall Thickness 0.5 RV Internal Dim ED PLAX 1.8 cm LVOT Diameter 1.9 cm Aortic Root Diameter 3.2 cm LA Systolic Diameter LX 2.4 cm 3.0 - 4.0 / 2.7 - 3.8 cm DOPPLER AV Peak Velocity 142.0 cm/s AV Peak Gradient 8.1 mmHg AI Peak Velocity 307.0 cm/s AI Peak Gradient 37.7 mmHg AI Pressure Half Time 400.0 ms LVOT Peak Velocity 109.0 cm/s LVOT Peak Gradient 4.8 mmHg AV Area Cont Eq pk 2.2 cm Mitral E Point Velocity 149.0 cm/s LV E' Lateral Velocity 4.0 cm/s Mitral E to LV E' Lateral Ratio 37.3 LV E' Septal Velocity 2.6 cm/s Mitral E to LV E' Septal Ratio 56.7 TR Peak Velocity 213.0 cm/s TR Peak Gradient 18.1 mmHg Right Atrial Pressure 10.0 mmHg Pulmonary Artery Systolic Pressu 28.1 mmHg Right Ventricular Systolic Press 28.1 mmHg PV Peak Velocity 90.9 cm/s PV Peak Gradient 3.3 mmHg FINDINGS LEFT VENTRICLE Normal left ventricular size. Wall thickness is normal. The left ventricular systolic function is mildly decreased with an estimated ejection fraction of 45 %. Inferoposterior hypokinesis. RIGHT VENTRICLE Normal right ventricular size and systolic function. LEFT ATRIUM The left atrial size is normal. RIGHT ATRIUM The right atrial size is normal. ATRIAL SEPTUM Normal atrial septal thickness without atrial level shunting by limited color doppler interrogation. AORTA The aortic root and proximal ascending aorta are normal in size on limited imaging. MITRAL VALVE Structurally normal mitral valve. Mild mitral valve regurgitation. Mitral annular calcification is present. AORTIC VALVE Trileaflet aortic valve. Trace aortic valve regurgitation. TRICUSPID VALVE There is trace tricuspid valve regurgitation. The estimated pulmonary arterial pressure is 28 mmHg. PULMONARY VALVE No pulmonary valve regurgitation or stenosis. VESSELS The inferior vena cava is normal in size. PERICARDIUM There is a small pericardial effusion present. A left sided pleural effusion is present. Randy Smallwood MD, FACC (Electronically Signed) Final Date:19 April 2018 16:27
--- NOTE | 2018-04-19 16:34 | XR ---
EXAM DATE: 04/19/2018 4:26 PM EDT AGE/SEX: 77 years / Female INDICATIONS: Left central line placement. CLINICAL DATA: This is the patient's initial encounter. Patient reports that signs and symptoms have been present for 1 day and indicates a pain score of Nonresponsive. MEDICAL/SURGICAL HISTORY: None. None. COMPARISON: [facility] [place] 1V SINGLE AP, 04/19/2018. . FINDINGS: A single AP view of the chest demonstrates hazy opacification of the mid-lower lungs, likely a combin ation of pleural fluid and airspace disease. Grossly stable enlargement of the cardiac silhouette giv en differences in patient positioning. A left-sided IJ venous catheter has been placed, with distal t ip projecting over the high right atrium. No appreciable pneumothorax. Degenerative changes of the sp ine. CONCLUSION: 1. New left IJ central venous catheter. 2. New hazy opacification of the mid-lower lungs bilaterally, likely a combination of pleural fluid and airspace disease. Electronically signed by: Guera Ghotra MD 04/19/2018 4:32 PM EDT
[2018-04-19] MEDS ORDERED: Norepinephrine Inj 16 MG in Sodium Chlor 0.9% Inj 234 ML IV.CONT PRN (16:36)
[2018-04-19] MEDS ORDERED: Vasopressin Inj 40 UNIT in Sodium Chlor 0.9% Inj 98 ML IV.CONT SCH (17:00)
--- NOTE | 2018-04-19 17:50 | P.CONID ---
History of Present Illness Service: ID Consult date: 04/19/18 Requesting Physician: Alex Hurley Reason for Consult: Patient with severe sepsis unclear etiology. Cellulitis? UTI? Pneumonia? Primary Care Provider: Diego Hollis MD History of Present Illness: 77 yo female multiple medical problems including RA, h/o tobaccoism, on home O2 22/02 though no official COPD diagnosis she resides in [facility] since her [facility] she has chronic rizo cath per daughter for incontinence issues she presented with SOB She has cough x 2-3 weeks, occasionally expectorates Admitted for STEMI alert, but is DNR and not a candidate for any invasive procedures W/u showed CXR with some interstitial changes and L pleural effusion UA very abnormal with multiple WBC/bacteria/ wbc clumps , clx P Lactic acid normal Pt is quite hypotensive, but not omn pressors, per daughter she always has low BP Pt's BNP >2000 EF 45 % with inferior hypokinesis + significant weight loss + intermittent diarrhea - chronic Pt was started on azactam, flagyl, vanco given into account her PCN allergy Review of Systems All other systems reviewed negative except as stated in HPI PMFSH - History History Provided By: Patient (denies any significant family history of illness or cancer), Family Member, Medical Record - Medical History Medical History: Medical History (Last Reviewed 04/19/18 @ 17:45 by Mary Scott MD) Chronic kidney disease Glaucoma Hip fracture requiring operative repair Hypothyroidism Rheumatoid arthritis - Surgical History Surgical History: Surgical History (Last Reviewed 04/19/18 @ 16:46 by Mary Scott MD) H/O thyroidectomy History of tonsillectomy - Family History Family History: Family History (Last Updated 04/19/18 @ 16:46 by Mary Scott MD) Other No pertinent family history - Social History I have reviewed the patient's Social History: Yes - Tobacco History Smoking Status: Former smoker Tobacco Type: Cigarettes - Alcohol History How Often Do You Have a Drink Containing Alcohol: Never - Substance Use History Substance History: No History of Abuse - Travel History Recent Travel in the [place] Within the Last 8 Weeks: No Recent Travel Out of the Country Within the Last 8 Weeks: No - Immunization History Tetanus Immunization: Unsure Medications and Allergies Active Medications: Active Medications Acetaminophen (Tylenol) 650 mg PO Q6H PRN PRN Reason: PAIN 1-10 AND/OR FEVER >101F Al Hydroxide/Mg Hydroxide (Milk Of Mandeep Zhang) 30 ml PO Q12H PRN PRN Reason: Mild Constipation Albuterol (Duoneb Neb (Prn)) 1 ampul NEB Q2HR NEB PRN PRN Reason: WHEEZING Aspirin (Ecotrin) 81 mg PO DAILY [facility] [place] Last Admin: 04/19/18 09:38 Dose: 81 mg Bisacodyl (Dulcolax Supp) 10 mg RECTAL DAILY PRN PRN Reason: SEVERE CONSITIPATION Chlorhexidine Gluconate (Chlorhexidine 2% Cloth) 3 pack TOPICAL DAILY@0400 NICOLE Stop: 04/24/18 03:59 Chlorhexidine Gluconate (Chlorhexidine 2% Cloth) 3 pack TOPICAL DAILY@0400 PRN PRN Reason: Extra cloth needed Stop: 04/24/18 03:59 Clopidogrel Bisulfate (Plavix) 75 mg PO DAILY [facility] [place] Last Admin: 04/19/18 09:38 Dose: 75 mg Dextrose (D50w Vial) 50 ml IV.PUSH UNSCH PRN PRN Reason: PER HYPOGLYCEMIA PROTOCOL Famotidine (Pepcid Pf Inj) 20 mg IV.PUSH Q12HR [facility] [place] Last Admin: 04/19/18 09:33 Dose: 20 mg Glucagon (Glucagon Inj) 1 mg OTHER PRN PRN PRN Reason: for Hypoglycemia Protocol Heparin Sodium (Porcine) (Heparin Inj) 5,000 units SQ Q12HR [facility] [place] Last Admin: 04/19/18 09:50 Dose: 5,000 units Hydroxychloroquine Sulfate (Plaquenil) 200 mg PO BID [facility] [place] Last Admin: 04/19/18 09:38 Dose: 200 mg Sodium Chloride (Ns Inj) 1,000 mls @ 30 mls/hr IV.SIG .Q24H [facility] [place] Stop: 04/20/18 00:59 Dopamine HCl/Dextrose (Dopamine 800 Mg/500 Ml Premix) 800 mg in 500 mls @ 4.848 mls/hr IV.CONT TITRATE PRN; Protocol PRN Reason: Per Protocol Last Titration: 04/19/18 03:15 Dose: 20 mcg/kg/min, 32.32 mls/hr Metronidazole/Sodium Chloride (Flagyl 500 Mg Inj) 100 mls @ 100 mls/hr IV.SIG Q8H [facility] [place] Last Infusion: 04/19/18 11:08 Dose: Infused Magnesium Sulfate Inj 4 gm/ (Sodium Chloride) 100 mls @ 50 mls/hr IV.SIG UNSCH PRN PRN Reason: For Magnesium 0.9 - 1.1 mg/dL Magnesium Sulfate Inj 2 gm/ (Sodium Chloride) 100 mls @ 50 mls/hr IV.SIG UNSCH PRN PRN Reason: For Magnesium 1.2 - 1.6 mg/dL Potassium Chloride (Kcl 40 Meq Premix Inj) 40 meq in 100 mls @ 25 mls/hr IV.SIG Q2H PRN PRN Reason: For Potassium 2.8 - 3.2 mEq/L Potassium Chloride (Kcl 20 Meq Premix Inj) 20 meq in 100 mls @ 50 mls/hr IV.SIG Q2H PRN PRN Reason: For Potassium 3.3 - 3.5 mEq/L Potassium Chloride (Kcl 40 Meq Premix Inj) 40 meq in 100 mls @ 25 mls/hr IV.SIG UNSCH PRN PRN Reason: For Potassium 3.3 - 3.5 mEq/L Potassium Chloride (Kcl 20 Meq Premix Inj) 20 meq in 100 mls @ 50 mls/hr IV.SIG Q2H PRN PRN Reason: For Potassium 2.8 - 3.2 mEq/L Potassium Phosphate 30 mmol/ (Sodium Chloride) 260 mls @ 42 mls/hr IV.SIG UNSCH PRN PRN Reason: SEE LABEL COMMENTS Sodium Phosphate 30 mmol/ (Sodium Chloride) 260 mls @ 42 mls/hr IV.SIG UNSCH PRN PRN Reason: For Phosphorus < 2.5 mg/dL Norepinephrine Bitartrate 16 (mg/ Sodium Chloride) 250 mls @ 1.87 mls/hr IV.CONT TITRATE PRN; Protocol PRN Reason: See Protocol Last Admin: 04/19/18 17:07 Dose: 2 mcg/min, 1.87 mls/hr Vasopressin 40 unit/ Sodium (Chloride) 100 mls @ 6 mls/hr IV.CONT CONT NICOLE; Protocol Last Admin: 04/19/18 17:08 Dose: 0.04 units/min, 6 mls/hr Aztreonam 2 gm/ Sodium (Chloride) 100 mls @ 200 mls/hr IV.SIG Q6H NICOLE Insulin Aspart (Novolog Insulin Correctional Sugar Inj) 0 unit SQ ACHS NICOLE; Protocol Last Admin: 04/19/18 12:47 Dose: Not Given Lactulose (Lactulose Liq) 30 ml PO DAILY PRN PRN Reason: SEVERE CONSITIPATION Latanoprost (Xalatan 0.005% Opth Drops) 1 drop EACH EYE QPM [facility] Levothyroxine Sodium (Synthroid) 88 mcg PO DAILY@0600 [facility] [place] Last Admin: 04/19/18 09:32 Dose: 88 mcg Magnesium Oxide (Mag-Ox) 800 mg PO UNSCH PRN PRN Reason: For Magnesium 1.2 - 1.6 mg/dL Mirtazapine (Remeron) 15 mg PO DAILY [facility] [place] Last Admin: 04/19/18 09:38 Dose: 15 mg Morphine Sulfate (Morphine Inj) 2 mg IV.PUSH Q2H PRN PRN Reason: PAIN SCALE 6 TO 10 Ondansetron HCl (Zofran Inj) 4 mg IV.PUSH Q6H PRN PRN Reason: NAUSEA OR VOMITING Pat Own Med: Cyclosporine ( Restasis) 0.05% Oph Emulsion 0 each EACH EYE Q12HR [facility] Pharmacy Profile Note (Vancomycin Consult Pharmacy) 1 each OTHER UNSCH PRN PRN Reason: Pharmacy to dose Pharmacy Profile Note (Vancomycin Consult Pharmacy) 1 each OTHER UNSCH PRN PRN Reason: Pharmacy to dose Potassium Bicarb/Potassium Chloride (K-Lyte Cl Eff) 50 meq PO UNSCH PRN PRN Reason: For Potassium 3.3 - 3.5 mEq/L Potassium Phosphate (K-Phos Original) 2,000 mg PO Q4H PRN PRN Reason: Phosphorus Less Than 2.5 mg/dL Potassium Phosphate (K-Phos Original) 2,000 mg PO UNSCH PRN PRN Reason: SEE LABEL COMMENTS Pravastatin Sodium (Pravachol) 80 mg PO QPM [facility] [place] Senna/Docusate Sodium (Twila-Colace) 1 tab PO BID [facility] [place] Last Admin: 04/19/18 09:38 Dose: 1 tab Sennosides (Senokot) 17.2 mg PO Q12H PRN PRN Reason: Moderate Constipation Sodium Chloride (Ns Flush) 2 ml IV.FLUSH BID [facility] [place] Last Admin: 04/19/18 09:51 Dose: 2 ml Sodium Chloride (Ns Flush) 2 ml IV.FLUSH PRN PRN PRN Reason: FLUSH AFTER USING IV ACCESS Sodium Chloride (Ns Flush) 0 ml IV.FLUSH DAILY [facility] Terbutaline Sulfate (Brethine Inj) 1 mg SQ ONCE PRN PRN Reason: Extravasation Allergies Allergy/AdvReac Type Severity Reaction Status Date / Time atorvastatin Allergy Severe RASH Verified 04/19/18 00:42 levofloxacin Allergy Severe NAUSEA, Verified 04/19/18 00:42 AND BLOOD PRESSURE DROPS penicillin G Allergy Severe hives Verified 04/19/18 00:42 Sulfa (Sulfonamide Allergy Severe hives Verified 04/19/18 00:42 Antibiotics) Home Medications Medication Instructions Recorded Confirmed Type acetaminophen [Tylenol] 650 mg PO Q4H PRN 04/19/18 04/19/18 History clopidogrel [Plavix] 75 mg PO DAILY 04/19/18 04/19/18 History cyclosporine [Restasis] 1 drp OPHTHALMIC (EYE) Q12H 04/19/18 04/19/18 History docusate sodium [Colace] 100 mg PO BID 04/19/18 04/19/18 History hydroxychloroquine [Plaquenil] 200 mg PO BID 04/19/18 04/19/18 History latanoprost 1 drp OPHTHALMIC (EYE) QPM 04/19/18 04/19/18 History levothyroxine 88 mcg PO DAILY 04/19/18 04/19/18 History mirtazapine 15 mg PO DAILY 04/19/18 04/19/18 History potassium chloride 10 meq PO DAILY 04/19/18 04/19/18 History simvastatin 40 mg PO QPM 04/19/18 04/19/18 History Exam Vital signs: Vital Signs 04/19/18 00:37 04/19/18 00:45 04/19/18 01:55 Temperature 97.5 F L Pulse Rate 89 80 Respiratory Rate 21 22 Blood Pressure 93/62 L 83/61 L Pulse Oximetry 100 100 96 04/19/18 02:39 04/19/18 03:30 04/19/18 03:45 Temperature Pulse Rate 122 H 125 H Respiratory Rate 19 19 Blood Pressure 94/57 L 79/59 L 82/62 L Pulse Oximetry 04/19/18 05:00 04/19/18 05:05 04/19/18 06:00 Temperature Pulse Rate 100 H 114 H 129 H Respiratory Rate 18 24 Blood Pressure 76/58 L 94/74 L Pulse Oximetry 98 04/19/18 08:00 04/19/18 09:42 09/18/18 11:00 Temperature 98.4 F 98.8 F Pulse Rate 119 H 115 H Respiratory Rate 24 22 Blood Pressure 94/75 L 75/63 L Pulse Oximetry 96 04/19/18 14:36 04/19/18 15:00 Temperature 98.0 F Pulse Rate 114 H Respiratory Rate 22 Blood Pressure 72/55 L Pulse Oximetry 99 Intake & Output 04/18/18 04/19/18 04/19/18 18:59 06:59 18:59 Intake Total 950 / 950 260.9 / 260.9 Output Total 900 / 900 Balance 50 / 50 260.9 / 260.9 Weight 42.5 kg Intake: IV 950 / 950 260.9 / 260.9 Heparin/D5W 25,000 U/250 mL 25, 60.9 / 60.9 000 unit In 250 ml @ Per Protocol IV.CONT TITRATE PRN Rx #:[id number] Azactam Inj 1,000 MG In NS Inj 100 / 100 100 ML @ 200 mls/hr IV.SIG ONCE ONE Rx#:[id number] Azactam Inj 2 GM In NS Inj 100 100 / 100 ML @ 200 mls/hr IV.SIG Q8H [facility] Rx#:[id number] NS Inj 500 ML @ Wide Open IV. 500 / 500 SIG BOLUS ONE Rx#:[id number] Vancomycin Inj 1,000 MG In NS 250 / 250 Inj 250 ML @ 200 mls/hr IV.SIG ONCE ONE Rx#:[id number] Flagyl 500 MG Inj 100 ML @ 100 100 / 100 100 / 100 mls/hr IV.SIG Q8H [facility] Rx#: [id number] Oral 0 / 0 Output: Urine Amount (Catheter) 900 / 900 Indwelling Urethral Catheter 900 / 900 Other: # Bowel Movements 0 Weight On Admission 42.5 kg - Constitutional no acute distress, cachectic, chronically ill appearing - Routine HEENT Exam Head: Present: normocephalic, atraumatic Eye: Present: EOMI, PERRL. Absent: conjunctival icterus, scleral injection ENT: Present: mucous membranes moist. Absent: dentition normal (edentulous) - Routine Neck Exam Present: supple. Absent: JVD - Routine Chest/Breast/Axilla Exam Chest wall: Absent: tenderness - Routine Respiratory Exam Present: decreased breath sounds, CTA bilaterally. Absent: accessory muscle use , rales, rhonchi, wheezes - Routine Cardiovascular Exam Present: RRR, S1, S2. Absent: murmur, gallop, rubs - Routine Abdominal Exam Present: soft, normoactive bowel sounds, distended (mildly ). Absent: tenderness, guarding, organomegaly, mass - Routine Extremities Exam Absent: cyanosis, clubbing, edema Comments: markedly deformed small joints of hands and feet b/l - Routine Skin Exam Present: intact, dry, pallor, warm. Absent: cyanosis, mottling - Routine Neurological Exam Present: alert, oriented X3, moving all extremities, vision grossly intact, hearing grossly intact - Routine Psychiatric Exam Present: normal affect, cooperative Results - Labs CBC & Chem 7: 04/19/18 05:22 Labs: Laboratory Results - last 24 hr 04/19/18 04/19/18 04/19/18 00:51 00:51 00:51 WBC 7.1 RBC 3.14 L Hgb 9.9 L POC Hgb (Calc) 9.5 L Hct 29.8 L POC Hct 28.0 L MCV 94.9 MCH 31.6 MCHC 33.3 RDW 12.5 Plt Count 159 MPV 7.5 Neut % (Auto) 83.9 H Lymph % (Auto) 6.8 L [place] % (Auto) 8.7 H Eos % (Auto) 0.2 Baso % (Auto) 0.4 Neut # (Auto) 6.0 Lymph # (Auto) 0.5 L [place] # (Auto) 0.6 Eos # (Auto) 0.0 Baso # (Auto) 0.0 WBC Differential . Differential Comment Auto diff final PT 11.5 INR 1.1 APTT 23.6 L POC Sodium 128 L POC Potassium 4.9 POC Chloride 95 L POC BUN 21 POC Creatinine 1.1 POC Glucose 120 H Lactic Acid Calcium 7.3 L* Magnesium 1.9 Total Creatine Kinase 220 H CK-MB (CK-2) 12.7 H CK-MB (CK-2) % 5.8 H* Troponin I 0.24 H B-Natriuretic Peptide Urine Color Urine Clarity Urine pH Ur Specific [place] Urine Protein Urine Glucose (UA) Urine Ketones Urine Occult Blood Urine Nitrate Urine Bilirubin Urine Urobilinogen Ur Leukocyte Esterase Urine RBC Urine WBC Urine WBC Clumps Urine Bacteria Urine Mucus Micro UA Comment Ur Microscopic Review Urine Culture Comments Nasal Screen MRSA (PCR) 04/19/18 04/19/1804/19/18 00:51 01:05 01:15 WBC RBC Hgb POC Hgb (Calc) Hct POC Hct MCV MCH MCHC RDW Plt Count MPV Neut % (Auto) Lymph % (Auto) [place] % (Auto) Eos % (Auto) Baso % (Auto) Neut # (Auto) Lymph # (Auto) [place] # (Auto) Eos # (Auto) Baso # (Auto) WBC Differential Differential Comment PT INR APTT POC Sodium POC Potassium POC Chloride POC BUN POC Creatinine POC Glucose Lactic Acid 1.1 Calcium Magnesium Total Creatine Kinase CK-MB (CK-2) CK-MB (CK-2) % Troponin I B-Natriuretic Peptide 2479 H Urine Color Yellow Urine Clarity Turbid H Urine pH 6.[address] [place] 1.010 Urine Protein 100 H Urine Glucose (UA) Negative Urine Ketones Negative Urine Occult Blood Moderate H Urine Nitrate Negative Urine Bilirubin Negative Urine Urobilinogen Less than 2 Ur Leukocyte Esterase Large H Urine RBC 29 H Urine WBC Urine WBC Clumps Many H Urine Bacteria Few H Urine Mucus Few H Micro UA Comment Culture indicated Ur Microscopic Review Not Reportable Urine Culture Comments Culture indicated Nasal Screen MRSA (PCR) 04/19/18 04/19/18 04/19/18 05:15 05:22 05:22 WBC RBC Hgb POC Hgb (Calc) Hct POC Hct MCV MCH MCHC RDW Plt Count MPV Neut % (Auto) Lymph % (Auto) [place] % (Auto) Eos % (Auto) Baso % (Auto) Neut # (Auto) Lymph # (Auto) [place] # (Auto) Eos # (Auto) Baso # (Auto) WBC Differential Differential Comment PT 12.0 H INR 1.2 APTT 88.8 H D POC Sodium POC Potassium POC Chloride POC BUN POC Creatinine POC Glucose Lactic Acid Calcium Magnesium Total Creatine Kinase CK-MB (CK-2) CK-MB (CK-2) % Troponin I 0.26 H B-Natriuretic Peptide Urine Color Urine Clarity Urine pH Ur Specific [place] Urine Protein Urine Glucose (UA) Urine Ketones Urine Occult Blood Urine Nitrate Urine Bilirubin Urine Urobilinogen Ur Leukocyte Esterase Urine RBC Urine WBC Urine WBC Clumps Urine Bacteria Urine Mucus Micro UA Comment Ur Microscopic Review Urine Culture Comments Nasal Screen MRSA (PCR) Not detected 04/19/18 04/19/18 04/19/18 05:22 09:49 09:49 WBC 6.6 RBC 3.41 L Hgb 10.9 L POC Hgb (Calc) Hct 32.7 L POC Hct MCV 95.6 MCH 31.8 MCHC 33.2 RDW 12.7 Plt Count 166 MPV 7.2 Neut % (Auto) Lymph % (Auto) [place] % (Auto) Eos % (Auto) Baso % (Auto) Neut # (Auto) Lymph # (Auto) [place] # (Auto) Eos # (Auto) Baso # (Auto) WBC Differential Differential Comment PT INR APTT Cancelled POC Sodium POC Potassium POC Chloride POC BUN POC Creatinine POC Glucose Lactic Acid Calcium Magnesium Total Creatine Kinase CK-MB (CK-2) CK-MB (CK-2) % Troponin I 0.29 H B-Natriuretic Peptide Urine Color Urine Clarity Urine pH Ur Specific [place] Urine Protein Urine Glucose (UA) Urine Ketones Urine Occult Blood Urine Nitrate Urine Bilirubin Urine Urobilinogen Ur Leukocyte Esterase Urine RBC Urine WBC Urine WBC Clumps Urine Bacteria Urine Mucus Micro UA Comment Ur Microscopic Review Urine Culture Comments Nasal Screen MRSA (PCR) 04/19/18 12:24 WBC RBC Hgb POC Hgb (Calc) Hct POC Hct MCV MCH MCHC RDW Plt Count MPV Neut % (Auto) Lymph % (Auto) [place] % (Auto) Eos % (Auto) Baso % (Auto) Neut # (Auto) Lymph # (Auto) [place] # (Auto) Eos # (Auto) Baso # (Auto) WBC Differential Differential Comment PT INR APTT POC Sodium POC Potassium POC Chloride POC BUN POC Creatinine POC Glucose 110 Lactic Acid Calcium Magnesium Total Creatine Kinase CK-MB (CK-2) CK-MB (CK-2) % Troponin I B-Natriuretic Peptide Urine Color Urine Clarity Urine pH Ur Specific [place] Urine Protein Urine Glucose (UA) Urine Ketones Urine Occult Blood Urine Nitrate Urine Bilirubin Urine Urobilinogen Ur Leukocyte Esterase Urine RBC Urine WBC Urine WBC Clumps Urine Bacteria Urine Mucus Micro UA Comment Ur Microscopic Review Urine Culture Comments Nasal Screen MRSA (PCR) - Imaging Impressions Chest X-Ray 04/19/18 00:47 CONCLUSION: Mild interstitial prominence, left base infiltrate and small effusions. Venous Doppler Study 04/19/18 00:51 CONCLUSION: The study is negative for lower extremity deep venous thrombosis. Chest X-Ray 04/19/18 15:59 CONCLUSION: 1. New left IJ central venous catheter. 2. New hazy opacification of the mid-lower lungs bilaterally, likely a combination of pleural fluid and airspace disease. Assessment and Plan - Plan Cardiac failure CHF exacerbation ? Superimposed PNA UTI with chronic indwelling rizo critically ill cont azactam, vanco, flagyl add doxycycline for atypical coverage - allergic to levaquin, azithro neither pt notr family memebers remember details - CT chest w/o c will get CT A/P if remains perssitently hypotensive w/o expanaition dw family @ b/s sky RN
--- NOTE | 2018-04-19 17:56 | ECG ---
Date Performed: 04/19/2018 Time Performed: 04:58:34 PTAGE: 77 years EKG: Sinus tachycardia Left axis deviation Anterior infarct - age undetermined Inferior infarct - age undetermined Low QRS voltages in precordial leads Since previous tracing, no significant change noted Abnormal ECG PREVIOUS TRACING : 04/19/2018 00.43 DOCTOR: Maine Gonzales Interpretating Date/Time 04/19/2018 17:56:44
--- NOTE | 2018-04-19 17:56 | ECG ---
Date Performed: 04/19/2018 Time Performed: 00:43:50 PTAGE: 77 years EKG: Sinus rhythm LOW QRS VOLTAGE IN PRECORDIAL LEADS VOLTAGE CRITERIA FOR LVH Inferior ST elevation in leads III, AVF consistant with inferior Myocardial infarction. Clinical correlation is recommended. INFERIOR MYOCAR DIAL INFARCTION ACUTE PA PREVIOUS TRACING : 12/03/2017 13.35 DOCTOR: Maine Gonzales Interpretating Date/Time 04/19/2018 17:56:21
[2018-04-19] MEDS ORDERED: Latanoprost 0.005% Opth Drops 2.5 ML Bottle EACH EYE SCH ×2 (18:00)
[2018-04-19] MEDS: Morphine Sulfate Inj 2 MG/ML Vial IV.PUSH PRN (19:19)
[2018-04-19] MEDS: Aztreonam Inj 2 GM in Sodium Chloride 0.9% Inj 100 ML IV.SIG SCH (19:33)
[2018-04-19] MEDS: Dexmedetomidine Inj 200 MCG in Sodium Chlor 0.9% Inj 48 ML IV.CONT PRN ×2 (19:55→22:42)
[2018-04-19 21:29] VITALS: TEMP 98.9
[2018-04-19 23:41] VITALS: RESP 26; O2SAT 99
[2018-04-19 23:49] VITALS: BP 81/63
[2018-04-20] MEDS: Aztreonam Inj 2 GM in Sodium Chloride 0.9% Inj 100 ML IV.SIG SCH ×2 (02:38→02:43)
[2018-04-20] MEDS: Morphine Sulfate Inj 2 MG/ML Vial IV.PUSH PRN (02:38)
[2018-04-20 03:33] VITALS: PULSE 0
--- NOTE | 2018-04-27 14:12 | P.DN ---
Discharge Sum: Prov - Provider Primary care physician: Diego Hollis MD Admitting clinician: Ezekiel Phelan Attending physician on admission: Ezekiel Phelan Consults: 04/19/18 00:51 Consult to Cardiology Stat Consulting Provider: John Jett For STAT consult, spoke directly to:: Dr. Jett by phone in ED Does the patient have a [employer] Manager who follows them?: No Preferred Academic Success Coordinator:: Undercover Agent Physician Reason for Consultation: STEMI, d/w Dr. Jett in ED by phone Date Notified:: 04/19/18 Time Notified:: 04:18 Ordering Provider: AIDAN 04/19/18 06:48 Consult to Palliative Care Routine Consulting Provider: Dante Peralta Reason for Consultation: STEMI, severe sepsis, ?UTI, DNR pt refusing everything. Unable to contact son. Goals of care. Notified:: Service Spoke with:: sarah Date Notified:: 04/19/18 Time Notified:: 07:30 Ordering Provider: LATONIA 04/19/18 13:54 HUB Only Consult Order Routine Consulting Provider: Devonte Wilhelm 04/19/18 16:10 Consult to Infectious Diseases Routine Consulting Provider: Mary Scott Reason for Consultation: Patient with severe sepsis unclear etiology. Cellulitis? UTI? Pneumonia? Senior Ssis Developer with antibiotic management. Multiple antibiotic allergies. Notified:: Service Spoke with:: raj Date Notified:: 04/19/18 Time Notified:: 16:21 Ordering Provider: LATONIA Pronouncing clinician: Ezekiel Phelan Discharge Sum: Diag - Admitting Diagnosis (1) Severe sepsis Status: Acute (2) ST elevation myocardial infarction (STEMI) Status: Acute Discharge Sum: Summary - Date and Time Date of admission: 04/19/18 02:13 Date of : 04/20/18 Time of : 03:06 - Summary Details: Neuro/Psych: Glaucoma Depression disorder NOS Continue mirtazapine 15 mg daily for depression Acetaminophen 650 p.o. every 6 hours as needed fever Continue cyclosporine 0.05% 1 drop each eye 2xdaily and latanoprost 0.005% 1 drop each eye at night CV: Inferior KS/acute Severe sepsis secondary to urinary tract infection Hyperlipidemia Peripheral arterial disease Elevated troponin Evaluated by Dr. Pruett/cardiology. Patient refusing intervention. They have signed off. Continue aspirin 81 mg daily and clopidogrel 75 mg daily Continue simvastatin 40 mg daily for dyslipidemia Currently on dopamine drip at 20 mg/kg/min to maintain mean artery pressure greater than equal to 65. Refuses central line placement. Echocardiogram pending. Troponin currently 0.26. Currently normal saline at 30 cc an hour Resp: Acute respiratory insufficiency Nasal cannula to maintain saturations greater than equal to 92% Incentive spirometry while awake Albuterol/ipratropium aerosols every 2 hours as needed dyspnea Chest x-ray admission revealed small left pleural effusion, infiltrate GI: Constipation Cardiac diet Famotidine for GI prophylaxis Docusate sodium/senna 1 tablet twice daily for bowel regimen : Li catheter if indicated for accurate I's and O's in a critical patient Endo: Hypothyroidism Currently on levothyroxine at 88 mcg daily. Check TSH Sliding scale insulin Accu-Cheks before meals/at bedtime to maintain a glycemic/ low regimen of aspart insulin Renal: Chronic kidney disease stage II Creatinine currently 1.1. Monitor urine output Accurate I's and O's Heme: Normocytic anemia Monitor CBC daily. Follow trends. No indication for transfusion of blood products at this time ID: Severe sepsis of unclear source. UTI? HCAP? Blood cultures 2, UA pending 04/19 Currently in vancomycin, aztreonam and metronidazole. Continue FEN: Replace electrolytes as clinically indicated per ICU likely protocol Currently normal saline at 30 cc MSK: History of inflammatory arthritis/rheumatoid arthritis on hydroxychloroquine sulfate T12 compression fracture Continue hydroxychloroquine sulfate 200 mg 2xdaily. PT evaluate and treat Access -Utilize peripheral IV. Central line refused by patient Prophylaxis -GI -famotidine -DVT -heparin subcu Additional 30 minutes critical care time. Palliative care consult since patient is currently refusing all potential life- saving interventions. Procedures: L IJ CVL Brief History: 77 year old female with a history of sudden onset of dyspnea that was noted at her care home at shift change at approximately 11 PM. The patient reports that she has had a cough that began earlier today and has been productive of white sputum. According to ambulance services, the patient is on 2-3 L nasal cannula O2 continuously. Ambulance services report that the patient was going to be started on antibiotic for the cough, however this had not been done yet. The patient does have a chronic indwelling Li catheter with cloudy urine. Ambulance services did an EKG prior to arrival that showed ST segment elevation in the inferior leads and a STEMI alert was called on the patient prior to arrival. The patient denies having any chest pain. The patient was placed on a nonrebreather mask prior to arrival and reports improvement in her shortness of breath. The patient presented to emergency department awake and alert and oriented. According to the record, the patient is DNR, which was further discussed by ED attending with the patient who confirmed that she would not want to be intubated or placed on a ventilator. She also confirms that she would not want chest compressions. ED attending also discussed with the patient possibility of a cardiac catheterization, the patient again reports that she would like to avoid any invasive procedures. This was also discussed by ED attending with the mud analysis well logging operator on-call who recommended conservative management of acute coronary syndrome. She was also noted to have edema and erythema of left lower extremity, and the DVT was ruled out by ultrasound obtained in the emergency department. Result Diagrams: 04/19/18 05:22 Significant Findings: Microbiology 04/19/18 01:10 Blood - Peripheral Aerobic Blood Culture - Final No growth in 5 days 04/19/18 01:10 Blood - Peripheral Anaerobic Blood Culture - Final No growth in 5 days 04/19/18 01:10 Blood - Peripheral Aerobic Blood Culture - Final No growth in 5 days 04/19/18 01:10 Blood - Peripheral Anaerobic Blood Culture - Final No growth in 5 days 04/19/18 01:15 Catheterized Urine Urine Culture - Final gram negative rods Imaging: Chest X-Ray 04/19/18 00:47 CONCLUSION: Mild interstitial prominence, left base infiltrate and small effusions. Venous Doppler Study 04/19/18 00:51 CONCLUSION: The study is negative for lower extremity deep venous thrombosis. Chest X-Ray 04/19/18 15:59 CONCLUSION: 1. New left IJ central venous catheter. 2. New hazy opacification of the mid-lower lungs bilaterally, likely a combination of pleural fluid and airspace disease. Hospital Course: Neuro/Psych: Glaucoma Depression disorder NOS Continue mirtazapine 15 mg daily for depression Acetaminophen 650 p.o. every 6 hours as needed fever Continue cyclosporine 0.05% 1 drop each eye 2xdaily and latanoprost 0.005% 1 drop each eye at night CV: Inferior KS/acute Severe sepsis secondary to urinary tract infection Hyperlipidemia Peripheral arterial disease Elevated troponin Evaluated by Dr. Pruett/cardiology. Patient refusing intervention. They have signed off. Continue aspirin 81 mg daily and clopidogrel 75 mg daily Continue simvastatin 40 mg daily for dyslipidemia Currently on dopamine drip at 20 mg/kg/min to maintain mean artery pressure greater than equal to 65. Refuses central line placement. Echocardiogram pending. Troponin currently 0.26. Currently normal saline at 30 cc an hour Resp: Acute respiratory insufficiency Nasal cannula to maintain saturations greater than equal to 92% Incentive spirometry while awake Albuterol/ipratropium aerosols every 2 hours as needed dyspnea Chest x-ray admission revealed small left pleural effusion, infiltrate GI: Constipation Cardiac diet Famotidine for GI prophylaxis Docusate sodium/senna 1 tablet twice daily for bowel regimen : Li catheter if indicated for accurate I's and O's in a critical patient Endo: Hypothyroidism Currently on levothyroxine at 88 mcg daily. Check TSH Sliding scale insulin Accu-Cheks before meals/at bedtime to maintain a glycemic/ low regimen of aspart insulin Renal: Chronic kidney disease stage II Creatinine currently 1.1. Monitor urine output Accurate I's and O's Heme: Normocytic anemia Monitor CBC daily. Follow trends. No indication for transfusion of blood products at this time ID: Severe sepsis of unclear source. UTI? HCAP? Blood cultures 2, UA pending 04/19 Currently in vancomycin, aztreonam and metronidazole. Continue FEN: Replace electrolytes as clinically indicated per ICU likely protocol Currently normal saline at 30 cc MSK: History of inflammatory arthritis/rheumatoid arthritis on hydroxychloroquine sulfate T12 compression fracture Continue hydroxychloroquine sulfate 200 mg 2xdaily. PT evaluate and treat Access -Utilize peripheral IV. Central line refused by patient Prophylaxis -GI -famotidine -DVT -heparin subcu Additional 30 minutes critical care time. Palliative care consult since patient is currently refusing all potential life- saving interventions. LIJ CVL placed. Pt more hypoxic overnight on multiple vasopressors. 305
== END 2018-04-20 05:45 | disposition expired ==
LOC: NEPE 00:35 → NEDA 02:13 → HCVI 04:53 → NEDA 05:00 → HCVI 06:14
PROVIDERS: ADMIT Internal Medicine Critical Care Medicine; ATTEND Internal Medicine Critical Care Medicine